=== PATIENT | female | born 1940 | race Caucasian/White ===

== ENCOUNTER 2016-04-11 11:59 | Inpatient (IN) | payer OTHER ==
[~2016-04-11] VITALS: Ht 175.3 cm; Wt 92.2 kg
[~2016-04-11 11:59] MED LIST: ACET-1256 PO; CALCTAB5 PO; CHOL100010 PO; CLB/200 PO; CMD1 PO; CMD3 PO; IRBE1TAB46 PO; TPRSR/25 PO; ULT/50 PO
[2016-04-11 13:02] LABS: HEMATOCRIT 41.4 % (37-47); MEAN CELL VOLUME 92.4 fL (80-100); MEAN CORPUSCULAR HEMOGLOBIN 29.5 pg (25-34); MEAN CORPUSCULAR HGB CONC 31.9 g/dl (32-36); MEAN PLATELET VOLUME 10.9 fL (7.4-10.4); PLATELET COUNT 259 K/uL (130-400); RED BLOOD COUNT 4.48 M/uL (4.2-5.4); WHITE BLOOD COUNT 6.15 K/uL (4.8-10.8)
[2016-04-11 13:11] LABS: BUN/CREATININE RATIO 12.1 (10-20); CALCIUM 9.4 mg/dl (8.5-10.1); POTASSIUM 4.6 mmol/L (3.5-5.1)
[2016-04-11] MEDS ORDERED: METOPROLOL TARTRATE 1 MG/ML VIAL IV STA (13:12)
[2016-04-11 13:16] LABS: ALB/GLOB RATIO 1.1 (0.9-2); CKMB/CK RATIO 1.9 (0-3.0)
--- NOTE | 2016-04-11 13:24 | DIAGNOSTIC IMAGING REPORT ---
CHEST ONE VIEW PORTABLE CLINICAL HISTORY: palpitations HYPERTENSION COMPARISON STUDY: 11/03/2013 FINDINGS: The heart is at the upper limits of normal in size. There is diffuse interstitial thickening, slightly progressive when compared the prior study. There is no lobar consolidation.[ No pleural effusions are visualized. IMPRESSION: 1. Mildly progressive interstitial thickening. No evidence of acute lobar consolidation. Electronically signed by: Valente Gallagher M.D. 04/11/2016 1:22 PM
[2016-04-11] MEDS ORDERED: CMD3 PO (13:27)
[2016-04-11 13:32] LABS: INR 2.2 (0.9-1.1); PARTIAL THROMBOPLASTIN RATIO 1.4; PROTHROMBIN TIME (PATIENT) 24.7 SECONDS (9.0-12.0)
[2016-04-11 14:10] LABS: MANUAL MICROSCOPIC REQUIRED? NO; REVIEW REQ? NO; URINE APPEARANCE CLEAR (CLEAR); URINE BILIRUBIN NEG (NEG); URINE COLOR YELLOW; URINE NITRITE NEG (NEG); URINE PH 8.5 (4.5-7.5); URINE SPECIFIC GRAVITY 1.007 (1.000-1.030); UROBILINOGEN NEG (NEG)
--- NOTE | 2016-04-11 15:29 | EMERGENCY ROOM VISIT NOTE ---
History Report prepared by Suyapa: Carolina Plunkett Under the Supervision of: Dr. Gal Kamara D.O. First contact with patient: 12:55 Chief Complaint: IRREGULAR HEARTBEAT Stated Complaint: VERTIGO AFIB HIGH BLOOD PRESSURE Nursing Triage Summary: Triage note: pt ambulatory to triage. pt reports "i have been in and out of a-fib since last night i think it is ok right now and this morning i was so dizzy i couldn't stand, i still feel dizzy on and off." History of Present Illness The patient is a 75 year old female who presents to the Emergency Room with complaints of intermittent episodes of atrial fibrillation since last evening. Currently, while resting, she is in mild discomfort, but she states that she has intermittently been experiencing a headache and dizziness which worsens with standing since the time of onset as well. She also notes being hypertensive last evening as well. The patient has a known history of paroxysmal atrial fibrillation and she frequently experiences episodes of an irregular heart beat, however, she was concerned as these episodes lasted longer than normal despite the use of her normal medications. Patient denies having chest pain, but she states as if her chest feels congested. She denies feeling short of breath but she states that she has felt more easily fatigued than normal. Patient denies recent fevers, chills, cough, abdominal pain, nausea , vomiting, diarrhea, urinary symptoms or swelling to her extremities. Source of History: patient Onset: last evening Position: chest Symptom Intensity: mild Quality: other (atrial fibrillation) Timing: intermittent Modifying Factors (Relieving): other (No relief with normal meds) Associated Symptoms: + SOB, + fatigue, + headache, No abdominal pain, No chest pain (but feels like her chest is congested), No chills, No cough, No diarrhea, No fevers, No nausea, No urinary symptoms, No vomiting Note: Patient has felt dizzy. Review of Systems See HPI for pertinent positives & negatives. A total of 10 systems reviewed and were otherwise negative. Past Medical & Surgical Medical Problems: (1) A-fib (2) Basal cell carcinoma (3) CKD (chronic kidney disease), stage III (4) DVT (deep venous thrombosis) (5) GERD (gastroesophageal reflux disease) (6) HTN (hypertension) (7) Osteoporosis (8) Paroxysmal a-fib Surgical Problems: (1) H/O dilation and curettage (2) H/O parathyroidectomy (3) History of cholecystectomy (4) S/P tonsillectomy and adenoidectomy Family History No pertinent family history Social History Smoking Status: Never Smoker Alcohol Use: none Marital Status: Housing Status: lives with significant other Occupation Status: retired Current/Historical Medications Scheduled Calcium (Caltrate), 600 MG PO DAILY Celecoxib (CeleBREX), 200 MG PO BID Cholecalciferol (Vitamin D), 1,000 INTER.UNIT PO DAILY Irbesartan (Irbesartan), 75 MG PO DAILY Magnesium Oxide (Magnesium Oxide), 1 CAP PO DAILY Metoprolol Succinate (Metoprolol Succinate ER), 25 MG PO BID Pantoprazole (Protonix), 1 TAB PO DAILY Warfarin Sod (Coumadin), 3 MG PO WK Warfarin Sod (Coumadin), 0.5 TAB PO 6XWK Scheduled PRN Acetaminophen (Tylenol), 500 MG PO TID PRN for Pain Lorazepam (Lorazepam), 1 TAB PO TID PRN for Anxiety Tramadol Hcl (Ultram), 50 MG PO Q4 PRN for Pain Allergies Coded Allergies: Nitrofurantoin (Verified Allergy, Mild, HIVES, 04/11/16) Penicillins (Verified Allergy, Mild, HIVES, 04/11/16) Eggs or Egg-derived Products (Verified Adverse Reaction, Mild, GI SYMPTOMS , 04/11/16) Physical Exam Vital Signs Date Time Temp Pulse Resp B/P Pulse Ox O2 Delivery O2 Flow Rate FiO2 04/11/16 17:11 97 04/11/16 17:04 80 17 151/89 96 Room Air 04/11/16 14:33 94 16 153/102 96 04/11/16 14:09 108 15 165/93 98 Room Air 04/11/16 13:48 107 183/100 04/11/16 13:43 97 Room Air 04/11/16 13:43 97 Room Air 04/11/16 13:33 108 180/95 04/11/16 13:32 96 15 180/95 97 Room Air 04/11/16 12:29 100 04/11/16 12:23 102 13 163/110 97 Room Air 04/11/16 12:17 97 Room Air 04/11/16 12:09 36.8 99 18 178/94 95 Room Air Physical Exam GENERAL: Patient is awake, alert, and in no acute distress. Patient is resting comfortably and showing no signs of anxiety EYES: The conjunctivae are clear. The pupils are round and reactive. EARS, NOSE, MOUTH AND THROAT: The nose is without any evidence of any deformity. Mucous membranes are moist tongue is midline NECK: The neck is nontender and supple. RESPIRATORY: Normal respiratory effort is noted there is no evidence of wheezing rhonchi or rales CARDIOVASCULAR: Irregular rhythm noted to auscultation. No definite murmur appreciated. GASTROINTESTINAL: The abdomen is soft. Bowel sounds are present in all quadrants. Abdomen is nontender MUSCULOSKELETAL/EXTREMITIES: There is no evidence of gross deformity full range of motion is noted in the hips and shoulders SKIN: There is no obvious evidence of any rash. There are no petechiae, pallor or cyanosis noted. NEUROLOGIC: Patient is awake alert and oriented x3. Medical Decision & Procedures ER Provider Diagnostic Interpretation: X-ray results as stated below per interpretation by me and the radiologist. CHEST ONE VIEW PORTABLE CLINICAL HISTORY: palpitations HYPERTENSION COMPARISON STUDY: 11/03/2013 FINDINGS: The heart is at the upper limits of normal in size. There is diffuse interstitial thickening, slightly progressive when compared the prior study. There is no lobar consolidation.[ No pleural effusions are visualized. IMPRESSION: 1. Mildly progressive interstitial thickening. No evidence of acute lobar consolidation. Electronically signed by: Valente Gallagher M.D. 04/11/2016 1:22 PM Laboratory Results Test 04/11/16 12:36 04/11/16 13:45 Immature Granulocyte % (Auto) 0.5 % White Blood Count 6.15 K/uL (4.8-10.8) Red Blood Count 4.48 M/uL (4.2-5.4) Hemoglobin 13.2 g/dL (12.0-16.0) Hematocrit 41.4 % (37-47) Mean Corpuscular Volume 92.4 fL (80-100) Mean Corpuscular Hemoglobin 29.5 pg (25-34) Mean Corpuscular Hemoglobin Concent 31.9 g/dl (32-36) Platelet Count 259 K/uL (130-400) Mean Platelet Volume 10.9 fL (7.4-10.4) Neutrophils (%) (Auto) 64.1 % Lymphocytes (%) (Auto) 19.5 % Monocytes (%) (Auto) 12.9 % Eosinophils (%) (Auto) 2.3 % Basophils (%) (Auto) 0.7 % Neutrophils # (Auto) 3.94 K/uL (1.4-6.5) Lymphocytes # (Auto) 1.20 K/uL (1.2-3.4) Monocytes # (Auto) 0.79 K/uL (0.11-0.59) Eosinophils # (Auto) 0.14 K/uL (0-0.5) Basophils # (Auto) 0.04 K/uL (0-0.2) Immature Granulocyte # (Auto) 0.03 K/uL (0.00-0.02) Nucleated RBC Absolute Count (auto) 0.00 K/uL (0-0) Nucleated Red Blood Cells % 0.0 % Activated Partial Thromboplast Time 36.9 SECONDS (21.0-31.0) Partial Thromboplastin Ratio 1.4 Magnesium Level 2.1 mg/dl (1.8-2.4) Total Bilirubin 0.5 mg/dl (0.2-1) Direct Bilirubin 0.1 mg/dl (0-0.2) Aspartate Amino Transf (AST/SGOT) 20 U/L (15-37) Alanine Aminotransferase (ALT/SGPT) 29 U/L (12-78) Alkaline Phosphatase 106 U/L (45-117) Total Creatine Kinase 111 U/L (26-192) Creatine Kinase MB 2.1 ng/ml (0.5-3.6) Creatine Kinase MB Ratio 1.9 (0-3.0) Troponin I < 0.015 ng/ml (0-0.045) Total Protein 7.5 gm/dl (6.4-8.2) Albumin 4.0 gm/dl (3.4-5.0) Globulin 3.5 gm/dl (2.5-4.0) Albumin/Globulin Ratio 1.1 (0.9-2) Lipase 183 U/L (73-393) Thyroid Stimulating Hormone (TSH) 2.120 uIu/ml (0.300-4.500) Free Thyroxine 1.26 ng/dl (0.80-1.60) Urine Color YELLOW Urine Appearance CLEAR (CLEAR) Urine pH 8.5 (4.5-7.5) Urine Specific [place] 1.007 (1.000-1.030) Urine Protein NEG (NEG) Urine Glucose (UA) NEG (NEG) Urine Ketones NEG (NEG) Urine Occult Blood NEG (NEG) Urine Nitrite NEG (NEG) Urine Bilirubin NEG (NEG) Urine Urobilinogen NEG (NEG) Urine Leukocyte Esterase TRACE (NEG) Urine WBC (Auto) 0 /hpf (0-5) Urine RBC (Auto) 0-4 /hpf (0-4) Urine Hyaline Casts (Auto) 0 /lpf (0-5) Urine Epithelial Cells (Auto) 5-10 /lpf (0-5) Urine Bacteria (Auto) NEG (NEG) Bedside Troponin I 0.000 ng/ml (0-0.045) Laboratory results per my review. Medications Administered Medications (Trade) Dose Ordered Sig/Cristiano Route Start Time Stop Time Status Last Admin Dose Admin Metoprolol Tartrate (Lopressor Iv) 15 mg NOW STAT IV 04/11/16 13:12 04/11/16 13:14 DC 04/11/16 13:33 5 MG Sotalol HCl (Betapace Tab) 80 mg [id number] PO 04/11/16 17:00 05/11/16 16:59 04/11/16 20:40 80 MG Amlodipine Besylate (Norvasc Tab) 5 mg NOW ONCE PO 04/11/16 15:45 04/11/16 15:54 DC 04/11/16 15:58 5 MG Warfarin Sodium (Coumadin Tab) 1.5 mg MoTuWeThFrSa@1600 PO 04/11/16 16:00 05/11/16 15:59 04/11/16 20:40 1.5 MG ECG Indication: palpitations Rate (beats per minute): 95 Rhythm: atrial fibrillation Findings: PVC, other (No ST segment abnormalities.) Change: A-fib is new when compared to 11/04/13. ED Course 1300: The patient was evaluated in room B7. A complete history and physical examination were performed. 1312: Lopressor 15 mg IV was ordered. 1450: Upon reevaluation, the patient appeared to be resting more comfortably, however she was still in atrial fibrillation. The logging equipment operator will be contacted. 1500: Dr. Maldonado of cardiology has been contacted. He will be in to evaluate her. 1420: Dr. Maldonado has evaluated the patient. He advised keeping her in the hospital to cardiovert with Sotalol. The hospitalist will be contacted. 1525: After discussion with Shiela FAN, the patient will continue to be evaluated by the [facility] for further evaluation. The patient verbalized her understanding and agreement with this treatment plan. Medical Decision Differential diagnosis: Etiologies such as premature contractions, electrolyte abnormality, cardiac dysrhythmia, thyroid dysfunction, pulmonary embolism, infection, gastrointestinal, as well as others were entertained. Nursing notes reviewed. The patient is a 75-year-old female who has a history of paroxysmal atrial fibrillation who presented to the emergency department with palpitations. She felt as though she went into atrial fibrillation within the last 24 hours. She is currently taking anticoagulation as well as rate control medication. She was treated with beta blockers in the emergency department. I discussed the patient' s laboratory and radiographic studies with her. I discussed her case with the on -call [facility] logging equipment operator. He independently evaluated the patient in the emergency department and felt that she may be a good candidate for cardioversion versus treating with sotalol. Ultimately he decided that treatment with sotalol would be better for this patient. I discussed his case with the on-call [facility] hospitalist group. They've agreed to evaluate the patient in emergency apartment for further management and disposition. Consults Time Called: 1450 Consulting Physician: Dr. Maldonado - cardiology Returned Call: 1500 and 1520 Discussed the patient's case. He will be in to evaluate her. 1520: Dr. Maldonado has evaluated the patient. He advised keeping her in the hospital for Sotalol cardioversion. The hospitalist will be contacted. Additional Consults: Time Called: 1525 Consulted Physician: Shiela FAN - [facility] Returned Call: 1526 Additional Comments: Discussed the patient's case. He will continue to be evaluated by the [facility] Hospitalist for further management. Impression Primary Impression: Atrial fibrillation Additional Impressions: Palpitations, Fatigue Scribe Attestation The scribe's documentation has been prepared under my direction and personally reviewed by me in its entirety. I confirm that the note above accurately reflects all work, treatment, procedures, and medical decision making performed by me. Departure Information Dispostion Being Evaluated By Hospitalist ([facility]) Referrals No Doctor, Assigned (PCP)
[2016-04-11 15:44] LABS: BASO % 0.7 %; BASO ABS # 0.04 K/uL (0-0.2); COMPLETE YES; EOS % 2.3 %; IG% 0.5 %; LYMPH % 19.5 %; MONO % 12.9 %; NEUT % 64.1 %
[2016-04-11] MEDS ORDERED: AMLODIPINE BESYLATE 5 MG TAB PO ONE (15:45)
[2016-04-11 15:47] LABS: MAGNESIUM 2.1 mg/dl (1.8-2.4)
[2016-04-11] MEDS ORDERED: WARFARIN SOD 0.5 MG TAB PO SCH (16:00)
--- NOTE | 2016-04-11 16:04 | CARDIOLOGY CONSULTATION ---
DATE OF CONSULTATION: 04/11/2016 CONSULTATION REQUESTED BY: Dr. Kamara. REASON FOR CONSULTATION: Symptomatic atrial fibrillation. HISTORY OF PRESENT ILLNESS: Mrs. Evangelista is a very pleasant 75-year-old woman who normally follows in our cardiology practice for history of paroxysmal atrial fibrillation. She presented to [facility] Emergency Department on 04/11/2016 with a complaint of feeling as though she is in atrial fibrillation for the last several days. She states several days prior to presentation she started feeling her heart fluttering in her chest and she get a little dyspneic with exertion. The symptoms would wax and wane. She felt that she was going in and out of atrial fibrillation. She was hoping it would go away on its own; however, the symptoms persisted and upon awakening on the morning of 04/11/2016, she became severely lightheaded and dizzy as well as nauseous upon awakening. She went and took her morning meds and tried to rest to get her symptoms under control, they persisted and she came into the Emergency Department. Upon arrival, she was found to be in atrial fibrillation with rates in the low 100s and also she was rather hypertensive with initial blood pressure of 178/94. Currently, she is without complaint at rest and states that she feels better as long as she does not move. PAST SURGICAL HISTORY: 1. Colonoscopy. 2. D\T\C. 3. Parathyroidectomy. 4. Cholecystectomy. 5. Tonsil and adenoidectomy. 6. Breast biopsy. PAST MEDICAL HISTORY: 1. Paroxysmal atrial flutter on chronic Coumadin therapy. 2. Factor V Leiden deficiency on chronic Coumadin therapy. 3. History of DVT. 4. Hypertension. 5. Osteoporosis. 6. Stage III chronic kidney disease. FAMILY HISTORY: Noncontributory. SOCIAL HISTORY: Denies any alcohol, tobacco or recreational drug use. REVIEW OF SYSTEMS: As per HPI, all other review of systems reviewed and negative at this time. ALLERGIES: 1. EGGS. 2. NITROFURANTOIN. 3. PENICILLIN. MEDICATIONS AN OUTPATIENT: 1. Coumadin 3 mg daily as directed by the Coumadin clinic. 2. Toprol-XL 25 mg b.i.d. 3. Irbesartan 75 mg daily. 4. Magnesium oxide 400 mg daily. 5. Protonix daily. PHYSICAL EXAMINATION: VITALS: Temperature afebrile, pulse 94, respiratory rate 12, blood pressure 153/102. GENERAL: Awake, alert, oriented x3, in no acute distress. HEENT: Normocephalic, atraumatic. Pupils are equal, round, and reactive to light and accommodation. Extraocular muscles intact. Anicteric sclerae. Moist mucous membranes. NECK: No JVD, no bruit. CARDIOVASCULAR: Irregularly irregular and fast. Unable to appreciate murmurs, rubs or gallops. PULMONARY: Clear to auscultation bilaterally. No rales, rhonchi, or wheezing. ABDOMEN: Bowel sounds x4, soft. No rebound, guarding, tenderness. No organomegaly. EXTREMITIES: No clubbing, cyanosis or edema. +2 pedal pulses bilaterally. SKIN: Warm and dry. TEST RESULTS: INR today of 2.2. Review of her INRs through epoch show that she has been therapeutic for the last several months. A 12-lead EKG performed in the Emergency Department independently reviewed at this time shows atrial fibrillation at 95 beats per minute with occasional PVCs. Sodium 143, potassium 4.6, BUN 12, creatinine 1. IMPRESSION: 1. Symptomatic atrial fibrillation with rapid ventricular response. 2. Hypertension, uncontrolled. 3. History of paroxysmal atrial fibrillation on chronic Coumadin therapy. 4. Factor V Leiden deficiency. RECOMMENDATIONS: It was my pleasure to see Mrs. Evangelista in consultation today. Treatment options for atrial fibrillation were discussed with the patient and after a lengthy discussion of all options available, it was agreed that the patient will be admitted to [facility] at this time for sotalol load and possible cardioversion. She will be started on 80 mg of sotalol b.i.d. and her metoprolol will be held. She will be maintained on her chronic Coumadin therapy. Daily EKGs will be performed to monitor her QT interval, which is normal upon presentation and should the patient remain in atrial fibrillation, we will proceed with DC cardioversion on 04/13/2016. The patient states that she understands, she agrees with above plan and would like to proceed as we have discussed. Otherwise, her blood pressure is rather elevated at this time, so I will give her a single dose of amlodipine 5 mg x1 now and further antihypertensives will be titrated during her admission. Thank you very much for allowing me to participate in the care of your patient.
[2016-04-11] MEDS ORDERED: ACETAMINOPHEN 325 MG TAB PO PRN (16:45)
[2016-04-11] MEDS ORDERED: ONDANSETRON INJ 2 MG/ML 2 ML VIAL IV PRN (16:45)
[2016-04-11] MEDS ORDERED: MAGN400C2 PO (17:16)
[2016-04-11] MEDS ORDERED: LORA0.5T12 PO (17:16)
[2016-04-11] MEDS ORDERED: PANT1TAB48 PO (17:16)
[2016-04-11] MEDS ORDERED: LORAZEPAM 0.5 MG TAB PO PRN (17:30)
--- NOTE | 2016-04-11 19:22 | History and Physical ---
History & Physical Date & Time of Service: Apr 11, 2016 at 19:06 Chief Complaint: Palpitations, Dizziness, Headache Primary Care Physician: Natasha Chavez M.D. History of Present Illness 75 year old female who presents to the ER with palpitations, dizziness, and headache. Patient reports her symptoms began yesterday. She reports history of paroxysmal atrial fibrillation and says that the symptoms she has been experiencing are similar to when she has been in a. fib in the past. She reports feeling vert fatigued as well. Today when she went to get out of bed she felt very dizzy and lightheaded. She denies any syncope. She also had a headache today and took her blood pressure and reports it was too high to read on the monitor. She denies any blurred vision or unilateral weakness. She denies chest pain or pressure. No shortness of breath. She denies abdominal pain , nausea, vomiting, or diarrhea. No fever or chills. She reports urinary frequency but denies dysuria. In the ER, patient is found to be in atrial fibrillation with rate in the low 100s. She was given metoprolol 15mg IV x 1. She was evaluated by Dr. Maldonado in the ER who recommended admission for Sotalol therapy initiation. BP was also noted to be high 183/100. Dr. Scruggs ordered amlodipine 5mg x 1. Past Medical/Surgical History Medical Problems: (1) Basal cell carcinoma Status: Chronic (2) CKD (chronic kidney disease), stage III Status: Chronic (3) DVT (deep venous thrombosis) Status: Chronic (4) GERD (gastroesophageal reflux disease) Status: Chronic (5) HTN (hypertension) Status: Chronic (6) Osteoporosis Status: Chronic (7) Paroxysmal a-fib Status: Chronic Surgical Problems: (1) H/O dilation and curettage Status: Chronic (2) H/O parathyroidectomy Status: Chronic (3) History of cholecystectomy Status: Chronic (4) S/P tonsillectomy and adenoidectomy Status: Chronic Family History FH: colon cancer SISTER Social History Smoking Status: Never Smoker Alcohol Use: none Immunizations History of Tetanus Vaccine?: Yes Tetanus Immunization Date: August 27, 2013 History of Pneumococcal: Yes Pneumococcal Date: May 10, 2015 Multi-Drug Resistant Organisms History of MDRO: No Allergies Coded Allergies: Nitrofurantoin (Verified Allergy, Mild, HIVES, 04/11/16) Penicillins (Verified Allergy, Mild, HIVES, 04/11/16) Eggs or Egg-derived Products (Verified Adverse Reaction, Mild, GI SYMPTOMS , 04/11/16) Home Medications Scheduled Calcium (Caltrate), 600 MG PO DAILY Celecoxib (CeleBREX), 200 MG PO BID Cholecalciferol (Vitamin D), 1,000 INTER.UNIT PO DAILY Irbesartan (Irbesartan), 75 MG PO DAILY Magnesium Oxide (Magnesium Oxide), 1 CAP PO DAILY Metoprolol Succinate (Metoprolol Succinate ER), 25 MG PO BID Pantoprazole (Protonix), 1 TAB PO DAILY Warfarin Sod (Coumadin), 3 MG PO WK Warfarin Sod (Coumadin), 0.5 TAB PO 6XWK Scheduled PRN Acetaminophen (Tylenol), 500 MG PO TID PRN for Pain Lorazepam (Lorazepam), 1 TAB PO TID PRN for Anxiety Tramadol Hcl (Ultram), 50 MG PO Q4 PRN for Pain Review of Systems 10 point review of systems was completed with the pertinent positives and negatives noted per the HPI Physical Exam Vital Signs Date Time Temp Pulse Resp B/P Pulse Ox O2 Delivery O2 Flow Rate FiO2 04/11/16 17:11 97 04/11/16 17:04 80 17 151/89 96 Room Air 04/11/16 14:33 94 16 153/102 96 04/11/16 14:09 108 15 165/93 98 Room Air 04/11/16 13:48 107 183/100 04/11/16 13:43 97 Room Air 04/11/16 13:43 97 Room Air 04/11/16 13:33 108 180/95 04/11/16 13:32 96 15 180/95 97 Room Air 04/11/16 12:29 100 04/11/16 12:23 102 13 163/110 97 Room Air 04/11/16 12:17 97 Room Air 04/11/16 12:09 36.8 99 18 178/94 95 Room Air General Appearance: no apparent distress Head: normocephalic Eyes: normal inspection ENT: hearing grossly normal Neck: supple, no JVD Respiratory/Chest: lungs clear, normal breath sounds, no respiratory distress Cardiovascular: no edema, + irregularly irregular Abdomen/GI: normal bowel sounds, non tender, soft Extremities/Musculoskelatal: normal inspection, no calf tenderness Neurologic/Psych: no motor/sensory deficits, alert, normal mood/affect, oriented x 3 Skin: normal color, warm/dry Diagnostics Laboratory Results Results Past 24 Hours Test 04/11/16 12:36 04/11/16 13:45 Range/Units White Blood Count 6.15 4.8-10.8 K/uL Red Blood Count 4.48 4.2-5.4 M/uL Hemoglobin 13.2 12.0-16.0 g/dL Hematocrit 41.4 37-47 % Mean Corpuscular Volume 92.4 80-100 fL Mean Corpuscular Hemoglobin 29.5 25-34 pg Mean Corpuscular Hemoglobin Concent 31.9 32-36 g/dl Platelet Count 259 130-400 K/uL Mean Platelet Volume 10.9 7.4-10.4 fL Neutrophils (%) (Auto) 64.1 % Lymphocytes (%) (Auto) 19.5 % Monocytes (%) (Auto) 12.9 % Eosinophils (%) (Auto) 2.3 % Basophils (%) (Auto) 0.7 % Neutrophils # (Auto) 3.94 1.4-6.5 K/uL Lymphocytes # (Auto) 1.20 1.2-3.4 K/uL Monocytes # (Auto) 0.79 0.11-0.59 K/uL Eosinophils # (Auto) 0.14 0-0.5 K/uL Basophils # (Auto) 0.04 0-0.2 K/uL RDW Standard Deviation 43.8 36.4-46.3 fL RDW Coefficient of Variation 13.1 11.5-14.5 % Immature Granulocyte % (Auto) 0.5 % Immature Granulocyte # (Auto) 0.03 0.00-0.02 K/uL Nucleated RBC Absolute Count (auto) 0.00 0-0 K/uL Nucleated Red Blood Cells % 0.0 % Prothrombin Time 24.7 9.0-12.0 SECONDS Prothromb Time International Ratio 2.2 0.9-1.1 Activated Partial Thromboplast Time 36.9 21.0-31.0 SECONDS Partial Thromboplastin Ratio 1.4 Sodium Level 143 136-145 mmol/L Potassium Level 4.6 3.5-5.1 mmol/L Chloride Level 107 98-107 mmol/L Carbon Dioxide Level 28 21-32 mmol/L Anion Gap 8.0 3-11 mmol/L Blood Urea Nitrogen 12 7-18 mg/dl Creatinine 1.00 0.60-1.20 mg/dl Est Creatinine Clear Calc Drug Dose 57.5 ml/min Estimated GFR () 62.9 Estimated GFR (Non- 54.3 BUN/Creatinine Ratio 12.1 10-20 Random Glucose 101 70-99 mg/dl Calcium Level 9.4 8.5-10.1 mg/dl Magnesium Level 2.1 1.8-2.4 mg/dl Total Bilirubin 0.5 0.2-1 mg/dl Direct Bilirubin 0.1 0-0.2 mg/dl Aspartate Amino Transf (AST/SGOT) 20 15-37 U/L Alanine Aminotransferase (ALT/SGPT) 29 12-78 U/L Alkaline Phosphatase 106 45-117 U/L Total Creatine Kinase 111 26-192 U/L Creatine Kinase MB 2.1 0.5-3.6 ng/ml Creatine Kinase MB Ratio 1.9 0-3.0 Troponin I < 0.015 0-0.045 ng/ml Total Protein 7.5 6.4-8.2 gm/dl Albumin 4.0 3.4-5.0 gm/dl Globulin 3.5 2.5-4.0 gm/dl Albumin/Globulin Ratio 1.1 0.9-2 Lipase 183 73-393 U/L Thyroid Stimulating Hormone (TSH) 2.120 0.300-4.500 uIu/ml Free Thyroxine 1.26 0.80-1.60 ng/dl Urine Color YELLOW Urine Appearance CLEAR CLEAR Urine pH 8.5 4.5-7.5 Urine Specific Lena 1.007 1.000-1.030 Urine Protein NEG NEG Urine Glucose (UA) NEG NEG Urine Ketones NEG NEG Urine Occult Blood NEG NEG Urine Nitrite NEG NEG Urine Bilirubin NEG NEG Urine Urobilinogen NEG NEG Urine Leukocyte Esterase TRACE NEG Urine WBC (Auto) 0 0-5 /hpf Urine RBC (Auto) 0-4 0-4 /hpf Urine Hyaline Casts (Auto) 0 0-5 /lpf Urine Epithelial Cells (Auto) 5-10 0-5 /lpf Urine Bacteria (Auto) NEG NEG Bedside Troponin I 0.000 0-0.045 ng/ml Diagnostic Radiology CXR IMPRESSION: 1. Mildly progressive interstitial thickening. No evidence of acute lobar consolidation. Impression Assessment and Plan SYMPTOMATIC ATRIAL FIBRILLATION - admit to tele - patient evaluated by Dr. Maldonado who recommends admission for Sotalol initiation - previously on metoprolol for rate control - will hold for now - anticoagulated on Coumadin with therapeutic INR HYPERTENSIVE URGENCY - BP on arrival 183/100 - holding metoprolol as above - amlodipine 5mg x 1 ordered by cardio - continue irbesartan - continue to monitor BP, adjust meds as needed CKD STAGE III - baseline creat 1.1, 1.0 today - continue to monitor, avoid nephrotoxic agents when able HX DVT - on Coumadin, INR therapeutic DVT PROPHYLAXIS - on Coumadin, INR therapeutic DISPO - In my clinical judgment this beneficiary meets acute admission criteria, established by [facility], that includes being hospitalized through two midnights. Agree with above H and P. Briefly 75F with hx of PAF presents with with symtoms of not feeling well, fatigue , dizzy, fluttering . Was in rapid afib and cardiology recommended sotalol initiation. Says some pressure in the chest when heart beating fast. No nausea or abdominal pain. p/e Ge not in distress Cvs s1 and 2 heard irregular no murmurs Rs cta b/l no added sounds Abd benign authorization rep non focal Ext no edema a/p Rapid afib received iv Lopressor in in er cardiology started on sotalol to monitor for any ekg changes. on Coumadin and inr therapeutic HTN urgency received iv Lopressor Lopressor Po on hold as started on sotalol on irbesartan amlodipine one dose give by cardiology will monitor VTE Prophylaxis VTE Risk Assessment Done? Y/N: Yes Risk Level: Moderate
[2016-04-11] MEDS: SOTALOL HCL 80 MG TAB PO SCH (20:40)
[2016-04-11] MEDS: CeleBREX 200 MG CAP PO SCH (20:40)
[2016-04-11 21:25] VITALS: O2SAT 98; Ht 175.3 cm; Wt 92.2 kg
[2016-04-12 00:05] VITALS: BP 121/74; PULSE 81; TEMP 36.8; O2SAT 92
[2016-04-12 04:03] VITALS: BP 127/72; PULSE 100; TEMP 36.4; O2SAT 95
[2016-04-12 06:01] LABS: HEMATOCRIT 41.7 % (37-47); MEAN CELL VOLUME 91.9 fL (80-100); MEAN CORPUSCULAR HEMOGLOBIN 29.5 pg (25-34); MEAN CORPUSCULAR HGB CONC 32.1 g/dl (32-36); MEAN PLATELET VOLUME 10.7 fL (7.4-10.4); PLATELET COUNT 232 K/uL (130-400); RED BLOOD COUNT 4.54 M/uL (4.2-5.4); WHITE BLOOD COUNT 6.04 K/uL (4.8-10.8)
[2016-04-12 06:12] LABS: PROTHROMBIN TIME (PATIENT) 22.1 SECONDS (9.0-12.0)
[2016-04-12 06:28] LABS: BUN/CREATININE RATIO 11.6 (10-20); CALCIUM 9.5 mg/dl (8.5-10.1); CREATININE 1.1 mg/dl (0.60-1.20); POTASSIUM 4.5 mmol/L (3.5-5.1)
[2016-04-12 07:58] VITALS: BP 137/93; PULSE 110; TEMP 36.3; O2SAT 97
[2016-04-12] MEDS: SOTALOL HCL 80 MG TAB PO SCH ×2 (09:43→17:20)
[2016-04-12] MEDS: MAGNESIUM OXIDE 400 MG TAB PO SCH (09:44)
[2016-04-12] MEDS: CHOLECALCIFEROL 1000 INTER.UNIT TAB PO SCH (09:44)
[2016-04-12] MEDS: PANTOprazole SOD 40 MG TAB PO SCH (09:44)
[2016-04-12] MEDS: CALCIUM CARBONATE 1250MG TAB PO SCH (09:44)
[2016-04-12] MEDS: CeleBREX 200 MG CAP PO SCH ×2 (09:45→20:44)
[2016-04-12] MEDS: IRBESARTAN 75 MG TAB PO SCH (09:45)
--- NOTE | 2016-04-12 10:42 | Cardiology Follow-Up ---
Subjective Subjective Date of Service: Apr 12, 2016. Pt evaluation today including: conversation w/ patient, physical exam, chart review, lab review, review of studies, review of inpatient medication list Additional Details: Pt seen and examined, states that she's feeling well at rest. Some sob early this AM, ?panic attack. Denies cp, palpitations, lightheadedness or dizziness. Tele reviewed: atrial fibrillation, rate's 90's-100's EKG afib with QTc 437 ms. Review of Systems Respiratory: No cough, No dyspnea at rest, No dyspnea on exertion, No hemoptysis, No problem reported, No see HPI, No shortness of breath, No sputum, No wheezing Cardiac: No PND, No chest pain, No claudication, No edema, No orthopnea, No palpitations, No problem reported, No see HPI Objective Vital Signs Last Vital Signs Documentation Date Time Temp Pulse Resp B/P Pulse Ox O2 Delivery O2 Flow Rate FiO2 04/12/16 07:58 36.3 110 18 137/93 97 Room Air Physical Exam: General Appearance: WD/WN, no apparent distress Eyes: bilateral eyes EOMI, bilateral eyes PERRL, bilateral eyes normal inspection ENT: normal ENT inspection, hearing grossly normal, pharynx normal Neck: supple, no adenopathy, thyroid normal, no JVD, no carotid bruits, trachea midline Respiratory/Chest: chest non-tender, lungs clear, normal breath sounds, no respiratory distress, no accessory muscle use Cardiovascular: no edema, no JVD, no murmur, + irregularly irregular Abdomen: normal bowel sounds, non tender, soft, no organomegaly, no pulsatile mass Extremities: normal inspection, no pedal edema, no calf tenderness Neurologic/Psychiatric: contract administration manager II-XII nml as tested, no motor/sensory deficits, alert, normal mood/affect, oriented x 3 Skin: normal color, warm/dry, no rash Lymphatic: no adenopathy Assessment and Plan 1. atrial fibrillation rvr symptomatic sotalol loading, Qtc stable at 437 ms for dc cardioversion in AM npo after midnight INR remains therapeutic will require telemetry monitoring until the AM of 04/15 cont daily ekg's
[2016-04-12 11:04] VITALS: BP 95/60; PULSE 108; TEMP 36.8; O2SAT 96
--- NOTE | 2016-04-12 11:46 | Progress Note ---
Internal Med Progress Note Date of Service: Apr 12, 2016. Provider Documentation: SUBJECTIVE: sitting on the chair comfortably could not sleep well last night. Says she doesn't sleep well at home also. afebrile no chest pain or sob has some cough OBJECTIVE: Vital Signs-as noted below Exam: General-alert and oriented x 3 ENT-normal hearing Neck-no neck masses Lungs-cta b/l no wheezing or crackles Heart-s1 and s2 heard irregular, no murmurs Abdomen-soft bowel sounds present non tender no distension Extremities-no edema no erythema Neuro-alert and awake moves extremities Lab data as noted below. ASSESSMENT & PLAN: SYMPTOMATIC ATRIAL FIBRILLATION Cardiology Dr. Maldonado recommends Sotalol initiation and monitor in tele home Lopressor held on Coumadin and INR 2.0 HYPERTENSIVE URGENCY BP on arrival 183/100 holding metoprolol as above received amlodipine 5mg x 1 ordered by cardio on irbesartan on sotalol stable currently. CKD STAGE III baseline creat 1.1, cr 1.1 today. HX DVT on Coumadin, INR therapeutic DVT PROPHYLAXIS on Coumadin, INR therapeutic DISPOSITION monitor in tele Vital Signs: Date Time Temp Pulse Resp B/P Pulse Ox O2 Delivery O2 Flow Rate FiO2 04/12/16 07:58 36.3 110 18 137/93 97 Room Air 04/12/16 04:03 36.4 100 15 127/72 95 Room Air 04/12/16 04:00 Room Air 04/12/16 00:05 36.8 81 16 121/74 92 Room Air 04/12/16 00:00 Room Air 04/11/16 21:25 98 Room Air 04/11/16 19:20 94 17 98 04/11/16 17:11 97 04/11/16 17:04 80 17 151/89 96 Room Air 04/11/16 14:33 94 16 153/102 96 04/11/16 14:09 108 15 165/93 98 Room Air 04/11/16 13:48 107 183/100 04/11/16 13:43 97 Room Air 04/11/16 13:43 97 Room Air 04/11/16 13:33 108 180/95 04/11/16 13:32 96 15 180/95 97 Room Air 04/11/16 12:29 100 04/11/16 12:23 102 13 163/110 97 Room Air 04/11/16 12:17 97 Room Air 04/11/16 12:09 36.8 99 18 178/94 95 Room Air Lab Results: Results Past 24 Hours Test 04/11/16 12:36 04/11/16 13:45 04/12/16 05:45 Range/Units White Blood Count 6.15 6.04 4.8-10.8 K/uL Red Blood Count 4.48 4.54 4.2-5.4 M/uL Hemoglobin 13.2 13.4 12.0-16.0 g/dL Hematocrit 41.4 41.7 37-47 % Mean Corpuscular Volume 92.4 91.9 80-100 fL Mean Corpuscular Hemoglobin 29.5 29.5 25-34 pg Mean Corpuscular Hemoglobin Concent 31.9 32.1 32-36 g/dl Platelet Count 259 232 130-400 K/uL Mean Platelet Volume 10.9 10.7 7.4-10.4 fL Neutrophils (%) (Auto) 64.1 % Lymphocytes (%) (Auto) 19.5 % Monocytes (%) (Auto) 12.9 % Eosinophils (%) (Auto) 2.3 % Basophils (%) (Auto) 0.7 % Neutrophils # (Auto) 3.94 1.4-6.5 K/uL Lymphocytes # (Auto) 1.20 1.2-3.4 K/uL Monocytes # (Auto) 0.79 0.11-0.59 K/uL Eosinophils # (Auto) 0.14 0-0.5 K/uL Basophils # (Auto) 0.04 0-0.2 K/uL RDW Standard Deviation 43.8 43.0 36.4-46.3 fL RDW Coefficient of Variation 13.1 12.9 11.5-14.5 % Immature Granulocyte % (Auto) 0.5 % Immature Granulocyte # (Auto) 0.03 0.00-0.02 K/uL Nucleated RBC Absolute Count (auto) 0.00 0-0 K/uL Nucleated Red Blood Cells % 0.0 % Prothrombin Time 24.7 22.1 9.0-12.0 SECONDS Prothromb Time International Ratio 2.2 2.0 0.9-1.1 Activated Partial Thromboplast Time 36.9 21.0-31.0 SECONDS Partial Thromboplastin Ratio 1.4 Sodium Level 143 145 136-145 mmol/L Potassium Level 4.6 4.5 3.5-5.1 mmol/L Chloride Level 107 106 98-107 mmol/L Carbon Dioxide Level 28 30 21-32 mmol/L Anion Gap 8.0 9.0 3-11 mmol/L Blood Urea Nitrogen 12 13 7-18 mg/dl Creatinine 1.00 1.10 0.60-1.20 mg/dl Est Creatinine Clear Calc Drug Dose 57.5 51.9 ml/min Estimated GFR () 62.9 56.1 Estimated GFR (Non- 54.3 48.4 BUN/Creatinine Ratio 12.1 11.6 10-20 Random Glucose 101 86 70-99 mg/dl Calcium Level 9.4 9.5 8.5-10.1 mg/dl Magnesium Level 2.1 1.8-2.4 mg/dl Total Bilirubin 0.5 0.2-1 mg/dl Direct Bilirubin 0.1 0-0.2 mg/dl Aspartate Amino Transf (AST/SGOT) 20 15-37 U/L Alanine Aminotransferase (ALT/SGPT) 29 12-78 U/L Alkaline Phosphatase 106 45-117 U/L Total Creatine Kinase 111 26-192 U/L Creatine Kinase MB 2.1 0.5-3.6 ng/ml Creatine Kinase MB Ratio 1.9 0-3.0 Troponin I < 0.015 0-0.045 ng/ml Total Protein 7.5 6.4-8.2 gm/dl Albumin 4.0 3.4-5.0 gm/dl Globulin 3.5 2.5-4.0 gm/dl Albumin/Globulin Ratio 1.1 0.9-2 Lipase 183 73-393 U/L Thyroid Stimulating Hormone (TSH) 2.120 0.300-4.500 uIu/ml Free Thyroxine 1.26 0.80-1.60 ng/dl Urine Color YELLOW Urine Appearance CLEAR CLEAR Urine pH 8.5 4.5-7.5 Urine Specific [place] 1.007 1.000-1.030 Urine Protein NEG NEG Urine Glucose (UA) NEG NEG Urine Ketones NEG NEG Urine Occult Blood NEG NEG Urine Nitrite NEG NEG Urine Bilirubin NEG NEG Urine Urobilinogen NEG NEG Urine Leukocyte Esterase TRACE NEG Urine WBC (Auto) 0 0-5 /hpf Urine RBC (Auto) 0-4 0-4 /hpf Urine Hyaline Casts (Auto) 0 0-5 /lpf Urine Epithelial Cells (Auto) 5-10 0-5 /lpf Urine Bacteria (Auto) NEG NEG Bedside Troponin I 0.000 0-0.045 ng/ml
[2016-04-12 15:12] VITALS: BP 108/71; PULSE 62; TEMP 36.5; O2SAT 96
[2016-04-12] MEDS: WARFARIN SOD 5 MG TAB PO SCH (17:21)
[2016-04-12 20:01] VITALS: BP 98/60; PULSE 63; TEMP 36.6; O2SAT 93
[2016-04-13 00:10] VITALS: BP 114/65; PULSE 56; TEMP 36.4; O2SAT 96
[2016-04-13 03:18] VITALS: BP 108/58; PULSE 54; TEMP 36.5; O2SAT 96
[2016-04-13 07:37] LABS: INR 2.2 (0.9-1.1); PROTHROMBIN TIME (PATIENT) 24.4 SECONDS (9.0-12.0)
[2016-04-13 08:08] VITALS: BP 110/60; PULSE 55; TEMP 36.7; O2SAT 94
[2016-04-13] MEDS: SOTALOL HCL 80 MG TAB PO SCH ×2 (08:49→17:49)
[2016-04-13] MEDS: CHOLECALCIFEROL 1000 INTER.UNIT TAB PO SCH (08:49)
[2016-04-13] MEDS: MAGNESIUM OXIDE 400 MG TAB PO SCH (08:49)
[2016-04-13] MEDS: PANTOprazole SOD 40 MG TAB PO SCH (08:49)
[2016-04-13] MEDS: CALCIUM CARBONATE 1250MG TAB PO SCH (08:49)
[2016-04-13] MEDS: CeleBREX 200 MG CAP PO SCH ×2 (08:50→20:57)
[2016-04-13] MEDS: TRAMADOL HCL 50 MG TAB PO PRN ×2 (10:00→20:58)
[2016-04-13] MEDS: IRBESARTAN 75 MG TAB PO SCH (10:00)
--- NOTE | 2016-04-13 10:33 | Cardiology Follow-Up ---
Subjective Subjective Date of Service: Apr 13, 2016. Pt evaluation today including: conversation w/ patient, physical exam, chart review, lab review, review of studies, review of inpatient medication list Additional Details: Pt seen and examined, states that she's feeling well. Ambulating last PM with some palpitations and chest discomfort, improved today. Denies sob, lightheadedness or dizziness. tele reviewed: spontaneously cardioverted to sinus rhythm at 1517 on 04/12/16 EKG: sinus rhythm QTc of 430ms Review of Systems Respiratory: No cough, No dyspnea at rest, No dyspnea on exertion, No hemoptysis, No problem reported, No see HPI, No shortness of breath, No sputum, No wheezing Cardiac: No PND, No chest pain, No claudication, No edema, No orthopnea, No palpitations, No problem reported, No see HPI Objective Vital Signs Last Vital Signs Documentation Date Time Temp Pulse Resp B/P Pulse Ox O2 Delivery O2 Flow Rate FiO2 04/13/16 08:08 36.7 55 18 110/60 94 Room Air Physical Exam: General Appearance: WD/WN, no apparent distress Eyes: bilateral eyes EOMI, bilateral eyes PERRL, bilateral eyes normal inspection ENT: normal ENT inspection, hearing grossly normal, pharynx normal Neck: supple, no adenopathy, thyroid normal, no JVD, no carotid bruits, trachea midline Respiratory/Chest: chest non-tender, lungs clear, normal breath sounds, no respiratory distress, no accessory muscle use Cardiovascular: regular rate, rhythm, no edema, no JVD, no murmur, + gallop/S4 Abdomen: normal bowel sounds, non tender, soft, no organomegaly, no pulsatile mass Extremities: normal inspection, no pedal edema, no calf tenderness Neurologic/Psychiatric: uniform maker II-XII nml as tested, no motor/sensory deficits, alert, normal mood/affect, oriented x 3 Skin: normal color, warm/dry, no rash Lymphatic: no adenopathy Assessment and Plan 1. atrial fibrillation spontaneously converted symptoms improving tolerating sotalol, no significant ventricular ectopy QTc stable cont sotalol 80 mg bid cont coumadin will give pm dose today, am dose tomorrow and d/c to home 2. chest discomfort improving no sign of active ischemia likely secondary to RVR if symptoms continue can complete ischemic work up as outpatient Nuclear stress would be preferred modality cont to monitor on tele
--- NOTE | 2016-04-13 11:25 | Progress Note ---
Internal Med Progress Note Date of Service: Apr 13, 2016. Provider Documentation: SUBJECTIVE: sitting on the chair comfortably says feels some pressure in the chest while walking no nausea no sob no dizziness OBJECTIVE: Vital Signs-as noted below Exam: General-alert and oriented x 3 ENT-normal hearing Neck-no neck masses Lungs-cta b/l no wheezing or crackles Heart-s1 and s2 heard irregular, no murmurs Abdomen-soft bowel sounds present non tender no distension Extremities-no edema no erythema Neuro-alert and awake moves extremities Lab data as noted below. ASSESSMENT & PLAN: SYMPTOMATIC ATRIAL FIBRILLATION Cardiology Dr. Maldonado recommends Sotalol initiation and monitor in tele home Lopressor held on Coumadin and INR 2.2 stable HYPERTENSIVE URGENCY BP on arrival 183/100 holding metoprolol as above received amlodipine 5mg x 1 ordered by cardio on irbesartan on sotalol stable currently. CKD STAGE III baseline creat 1.1, cr 1.1 today. HX DVT on Coumadin, INR therapeutic DVT PROPHYLAXIS on Coumadin, INR therapeutic DISPOSITION monitor in tele possible d/c in am Vital Signs: Date Time Temp Pulse Resp B/P Pulse Ox O2 Delivery O2 Flow Rate FiO2 04/13/16 08:08 36.7 55 18 110/60 94 Room Air 04/13/16 04:00 Room Air 04/13/16 03:18 36.5 54 16 108/58 96 Room Air 04/13/16 00:10 36.4 56 15 114/65 96 Room Air 04/13/16 00:00 Room Air 04/12/16 20:01 36.6 63 18 98/60 93 Room Air 04/12/16 20:00 Room Air 04/12/16 16:00 Room Air 04/12/16 15:12 36.5 62 20 108/71 96 Room Air 04/12/16 12:00 Room Air Lab Results: Results Past 24 Hours Test 04/13/16 06:35 Range/Units Prothrombin Time 24.4 9.0-12.0 SECONDS Prothromb Time International Ratio 2.2 0.9-1.1
[2016-04-13 12:06] VITALS: BP 102/60; PULSE 54; TEMP 36.8; O2SAT 95
[2016-04-13 15:36] VITALS: BP 101/66; PULSE 50; TEMP 36.6; O2SAT 95
[2016-04-13] MEDS: WARFARIN SOD 5 MG TAB PO SCH (17:48)
[2016-04-13 19:53] VITALS: BP 97/62; PULSE 59; TEMP 36.6; O2SAT 96
[2016-04-14] VITALS: BP 100/55; PULSE 55; TEMP 36.5; O2SAT 92
[2016-04-14 04:00] VITALS: BP 107/56; PULSE 54; TEMP 36.6; O2SAT 93
[2016-04-14 07:19] LABS: INR 3.5 (0.9-1.1); PROTHROMBIN TIME (PATIENT) 39.6 SECONDS (9.0-12.0)
[2016-04-14 08:09] VITALS: BP 109/61; PULSE 52; TEMP 36.6; O2SAT 95
[2016-04-14] MEDS: CeleBREX 200 MG CAP PO SCH (08:25)
[2016-04-14] MEDS: CALCIUM CARBONATE 1250MG TAB PO SCH (08:25)
[2016-04-14] MEDS: SOTALOL HCL 80 MG TAB PO SCH (08:25)
[2016-04-14] MEDS: CHOLECALCIFEROL 1000 INTER.UNIT TAB PO SCH (08:26)
[2016-04-14] MEDS: PANTOprazole SOD 40 MG TAB PO SCH (08:26)
[2016-04-14] MEDS: MAGNESIUM OXIDE 400 MG TAB PO SCH (08:26)
[2016-04-14] MEDS: IRBESARTAN 75 MG TAB PO SCH (08:27)
--- NOTE | 2016-04-14 11:28 | Cardiology Follow-Up ---
Subjective General Date of Service: Apr 14, 2016. Chief Complaint: follow up symptomatic atrial fibrillation Pt evaluation today including: conversation w/ patient, physical exam History of Present Illness The patient is a 75 year old female seen in cardiology follow up. Patient is feeling well. Telemetry reveals no AF overnight or today thus far. EKG this am revealed SB at 55 with stable QTC of 432 ms. INR is 3.5. Allergies Coded Allergies: Nitrofurantoin (Verified Allergy, Mild, HIVES, 04/11/16) Penicillins (Verified Allergy, Mild, HIVES, 04/11/16) Eggs or Egg-derived Products (Verified Adverse Reaction, Mild, GI SYMPTOMS , 04/11/16) Social History Smoking Status: Never Smoker Hx Tobacco Use In Past Year?: No Hx Alcohol Use - Type And Amou: No Hx Substance Use - Type And Am: No Physical Exam Vital Signs Last Vital Signs Documentation Date Time Temp Pulse Resp B/P Pulse Ox O2 Delivery O2 Flow Rate FiO2 04/14/16 08:09 36.6 52 18 109/61 95 Room Air Physical Exam Neck: supple Lungs: Auscultation: no wheezing, no rales/crackles, no rhonchi Cardiovascular: Heart Auscultation: RRR, no murmurs, no rubs, no gallops Abdomen: Inspection & Palpation: soft, non-distended Extremities: no cyanosis, no edema Neurologic: Gait & Station: pertinent finding (no focal deficits ) Assessment and Plan Assessment and Plan Impression: 75 year old female 1. Symptomatic AF RVR, spontaneously converted to SB, has completed sotalol load received 6 doses of 80 mg Q 12 hours while on telemetry 2. INR at goal, borderline elevated Plan: 1. Stable for DC on sotalol 80 mg PO BID. 2. Discontinue prior metoprolol (replaced with sotalol) at discharge. 3. continue same irbesartan dose. 4. Reduce coumadin dose back to home dose of 3 mg, follow up with anticoag clinic, with INR early next week. 5. Routine cardio follow up with Dr Maldonado within 2-4 weeks. -Patient to avoid any medications that prolong the QT interval such as Quinolone or macrolide antibiotics. Familia Wilkinson DO Laboratory Results Last 24 Hours Test 04/14/16 06:40 Prothrombin Time 39.6 SECONDS Prothromb Time International Ratio 3.5
[2016-04-14 11:53] VITALS: BP 97/65; PULSE 51; TEMP 36.6; O2SAT 96
[2016-04-14] MEDS ORDERED: BTP80 PO (13:25)
--- NOTE | 2016-04-14 13:29 | Discharge Instructions ---
Discharge Instructions Admission Reason for Admission: A-FIB Discharge Discharge Diagnosis / Problem: RAPID AFIB Discharge Goals Goal(s): Decrease discomfort, Improve function Activity Recommendations Activity Limitations: resume your previous activity . Instructions / Follow-Up Instructions / Follow-Up FOLLOWUP WITH FAMILY DOCTOR ON Apr AT 12:30PM. FOLLOWUP WITH COUMADIN CLINIC IN 3-4 DAYS FOR COUMADIN DOSING. FOLLOWUP WITH CARDIOLOGY IN 2 -4 WEEKS PATIENT TO AVOID MEDICATIONS WHICH CAUSE QT PROLONGATION LIKE QUINOLONES ( LEVAQUIN, CIPROFLOXACIN, AVELOX), MACROLIDES ( AZITHROMYCIN, ERYTHROMYCIN, CLARITHROMYCIN) Current Hospital Diet Patient's current hospital diet: AHA Diet (Heart Healthy) Discharge Diet Recommended Diet: AHA Diet (Heart Healthy) Pending Studies Studies pending at discharge: no Medical Emergencies . Who to Call and When: Medical Emergencies: If at any time you feel your situation is an emergency, please call 911 immediately. . Non-Emergent Contact Non-Emergency issues call your: Primary Care Provider . . "Provider Documentation" section prepared by Franklin Colon. VTE Core Measure Inpt VTE Proph given/why not?: Warfarin (Coumadin)
[2016-04-14] MEDS ORDERED: CMD3 PO (13:37)
[2016-04-14 14:19] VITALS: BP 102/58; PULSE 55; TEMP 36.6; O2SAT 98
[2016-04-14] MEDS ORDERED: WARFARIN SOD 3 MG TAB PO SCH (16:00)
--- NOTE | 2016-04-14 19:47 | Progress Note ---
Internal Med Progress Note Date of Service: Apr 14, 2016. Provider Documentation: SUBJECTIVE: resting comfortably no chest pain or sob no dizziness ok to go home OBJECTIVE: Vital Signs-as noted below Exam: General-alert and oriented x 3 ENT-normal hearing Neck-no neck masses Lungs-cta b/l no wheezing or crackles Heart-s1 and s2 heard irregular, no murmurs Abdomen-soft bowel sounds present non tender no distension Extremities-no edema no erythema Neuro-alert and awake moves extremities Lab data as noted below. ASSESSMENT & PLAN: SYMPTOMATIC ATRIAL FIBRILLATION Cardiology Dr. Maldonado recommends Sotalol initiation and monitor in tele home Lopressor held discharged on sotalol 80mg bid and Coumadin 3mg daily f/u with Coumadin clinic HYPERTENSIVE URGENCY BP on arrival 183/100 holding metoprolol as above received amlodipine 5mg x 1 ordered by cardio on irbesartan on sotalol stable currently. f/u with pcp CKD STAGE III baseline creat 1.1, cr 1.1 today. HX DVT on Coumadin, INR therapeutic discharged home Vital Signs: Date Time Temp Pulse Resp B/P Pulse Ox O2 Delivery O2 Flow Rate FiO2 04/14/16 14:19 36.6 55 20 98 Room Air 04/14/16 12:00 Room Air 04/14/16 11:53 36.6 51 18 97/65 96 Room Air 04/14/16 08:09 36.6 52 18 109/61 95 Room Air 04/14/16 08:00 Room Air 04/14/16 04:00 36.6 54 18 107/56 93 Room Air 04/14/16 04:00 Room Air 04/14/16 00:00 Room Air 04/14/16 00:00 36.5 55 18 100/55 92 Room Air 04/13/16 20:00 Room Air 04/13/16 19:53 36.6 59 18 97/62 96 Lab Results: Results Past 24 Hours Test 04/14/16 06:40 Range/Units Prothrombin Time 39.6 9.0-12.0 SECONDS Prothromb Time International Ratio 3.5 0.9-1.1
--- NOTE | 2016-04-14 19:48 | Discharge Summary ---
Discharge Summary Admission Date: Apr 11, 2016 at 18:42 Discharge Date: Apr 14, 2016 Discharge Disposition: Home Principal Diagnosis: RAPID AFIB Secondary Diagnoses/Problems: (1) Basal cell carcinoma Status: Chronic (2) CKD (chronic kidney disease), stage III Status: Chronic (3) DVT (deep venous thrombosis) Status: Chronic (4) GERD (gastroesophageal reflux disease) Status: Chronic (5) HTN (hypertension) Status: Chronic (6) Osteoporosis Status: Chronic (7) Paroxysmal a-fib Status: Chronic Consultations: CARDIOLOGY Medication Reconciliation New Medications: Sotalol HCl (Sotalol HCl) 80 Mg Tab 80 MG PO BID17, #60 TAB 2 Refills Warfarin Sod (Coumadin) 3 Mg Tab 3 MG PO DAILY@16, #30 TAB 2 Refills Continued Medications: Acetaminophen (Tylenol) 500 Mg Tab 500 MG PO TID PRN for Pain, TAB Calcium (Caltrate) 600 Mg Tab 600 MG PO DAILY, TAB Celecoxib (CeleBREX) 200 Mg Cap 200 MG PO BID, CAP Cholecalciferol (Vitamin D) 1,000 Inter.unit Tab 1000 INTER.UNIT PO DAILY, TAB Irbesartan (Irbesartan) 75 Mg Tab 75 MG PO DAILY, #90 Lorazepam (Lorazepam) 0.5 Mg Tab 1 TAB PO TID PRN for Anxiety for 30 Days, #90 TAB Magnesium Oxide (Magnesium Oxide) 400 Mg Cap 1 CAP PO DAILY for 30 Days, #30 CAP 3 Refills Pantoprazole (Protonix) 40 Mg Tab 1 TAB PO DAILY for 30 Days, #30 TAB 3 Refills Tramadol Hcl (Ultram) 50 Mg Tab 50 MG PO Q4 PRN for Pain, #100 Discontinued Medications: Metoprolol Succinate (Metoprolol Succinate ER) 25 Mg Tabcr 25 MG PO BID, #60 Warfarin Sod (Coumadin) 3 Mg Tab 3 MG PO WK TAKE ON SATURDAY Warfarin Sod (Coumadin) 3 Mg Tab 0.5 TAB PO 6XWK all days except saturday Admission Information HPI (per Admitting provider): 75 year old female who presents to the ER with palpitations, dizziness, and headache. Patient reports her symptoms began yesterday. She reports history of paroxysmal atrial fibrillation and says that the symptoms she has been experiencing are similar to when she has been in a. fib in the past. She reports feeling vert fatigued as well. Today when she went to get out of bed she felt very dizzy and lightheaded. She denies any syncope. She also had a headache today and took her blood pressure and reports it was too high to read on the monitor. She denies any blurred vision or unilateral weakness. She denies chest pain or pressure. No shortness of breath. She denies abdominal pain , nausea, vomiting, or diarrhea. No fever or chills. She reports urinary frequency but denies dysuria. In the ER, patient is found to be in atrial fibrillation with rate in the low 100s. She was given metoprolol 15mg IV x 1. She was evaluated by Dr. Maldonado in the ER who recommended admission for Sotalol therapy initiation. BP was also noted to be high 183/100. Dr. Scruggs ordered amlodipine 5mg x 1. Physical Exam (per Admitting): General Appearance: no apparent distress Head: normocephalic Eyes: normal inspection ENT: hearing grossly normal Neck: supple, no JVD Respiratory/Chest: lungs clear, normal breath sounds, no respiratory distress Cardiovascular: no edema, + irregularly irregular Abdomen/GI: normal bowel sounds, non tender, soft Extremities/Musculoskelatal: normal inspection, no calf tenderness Neurologic/Psych: no motor/sensory deficits, alert, normal mood/affect, oriented x 3 Skin: normal color, warm/dry Physical Exam (per Admitting): General Appearance: no apparent distress Head: normocephalic Eyes: normal inspection ENT: hearing grossly normal Neck: supple, no JVD Respiratory/Chest: lungs clear, normal breath sounds, no respiratory distress Cardiovascular: no edema, + irregularly irregular Abdomen/GI: normal bowel sounds, non tender, soft Extremities/Musculoskelatal: normal inspection, no calf tenderness Neurologic/Psych: no motor/sensory deficits, alert, normal mood/affect, oriented x 3 Skin: normal color, warm/dry Hospital Course SYMPTOMATIC ATRIAL FIBRILLATION Cardiology Dr. Maldonado recommends Sotalol initiation and monitor in tele home Lopressor held discharged on sotalol 80mg bid and Coumadin 3mg daily f/u with Coumadin clinic HYPERTENSIVE URGENCY BP on arrival 183/100 holding metoprolol as above received amlodipine 5mg x 1 ordered by cardio on irbesartan on sotalol stable currently. f/u with pcp CKD STAGE III baseline creat 1.1, cr 1.1 today. HX DVT on Coumadin, INR therapeutic discharged home Total time spent on discharge = 35MINUTES This includes examination of the patient, discharge planning, medication reconciliation, and communication with other providers. Discharge Instructions Discharge Instructions Admission Reason for Admission: A-FIB Discharge Discharge Diagnosis / Problem: RAPID AFIB Discharge Goals Goal(s): Decrease discomfort, Improve function Activity Recommendations Activity Limitations: resume your previous activity . Instructions / Follow-Up Instructions / Follow-Up FOLLOWUP WITH FAMILY DOCTOR ON Apr AT 12:30PM. FOLLOWUP WITH COUMADIN CLINIC IN 3-4 DAYS FOR COUMADIN DOSING. FOLLOWUP WITH CARDIOLOGY IN 2 -4 WEEKS PATIENT TO AVOID MEDICATIONS WHICH CAUSE QT PROLONGATION LIKE QUINOLONES ( LEVAQUIN, CIPROFLOXACIN, AVELOX), MACROLIDES ( AZITHROMYCIN, ERYTHROMYCIN, CLARITHROMYCIN) Current Hospital Diet Patient's current hospital diet: AHA Diet (Heart Healthy) Discharge Diet Recommended Diet: AHA Diet (Heart Healthy) Pending Studies Studies pending at discharge: no Medical Emergencies . Who to Call and When: Medical Emergencies: If at any time you feel your situation is an emergency, please call 911 immediately. . Non-Emergent Contact Non-Emergency issues call your: Primary Care Provider . . "Provider Documentation" section prepared by Franklin Colon. VTE Core Measure Inpt VTE Proph given/why not?: Warfarin (Coumadin)
[2016-04-15] MEDS ORDERED: WARFARIN SOD 3 MG TAB PO SCH (16:00)
== END 2016-04-14 14:30 | disposition home or self-care (01) | DRG 309 ==
LOC: ENRESERVTM → ENRESERVDT → C.EDB 12:01 → C.2T 18:42
PROVIDERS: ADMIT Internal Medicine; ATTEND Internal Medicine
DX: I48.0 Paroxysmal atrial fibrillation (principal); D68.51 Activated protein C resistance; I82.509 Chronic embolism and thrombosis of unspecified deep veins of unspecified lower extremity; M81.0 Age-related osteoporosis without current pathological fracture; N18.3 Chronic kidney disease, stage 3 (moderate); K21.9 Gastro-esophageal reflux disease without esophagitis; I16.0 Hypertensive urgency; I12.9 Hypertensive chronic kidney disease with stage 1 through stage 4 chronic kidney disease, or unspecified chronic kidney disease; R51 Headache; C44.91 Basal cell carcinoma of skin, unspecified; I48.2 Chronic atrial fibrillation; R07.9 Chest pain, unspecified; R53.83 Other fatigue; Z79.1 Long term (current) use of non-steroidal anti-inflammatories (NSAID); Z79.01 Long term (current) use of anticoagulants; Z79.891 Long term (current) use of opiate analgesic; Z79.899 Other long term (current) drug therapy

== ENCOUNTER 2017-11-20 09:16 | Observation (INO) | payer OTHER ==
[~2017-11-20] VITALS: Ht 175.3 cm; Wt 92.0 kg
[2017-11-20] VITALS (7 sets, daily range): BP systolic 110–176; BP diastolic 74–100; PULSE 84–104; TEMP 36–36.7; O2SAT 92–98; Ht 175.3 cm; Wt 92.0 kg
[~2017-11-20 09:16] MED LIST changes: -ACET-1256 PO; +BTP80 PO; -CMD1 PO; +LORA0.5T12 PO; -TPRSR/25 PO; -ULT/50 PO
[2017-11-20] MEDS ORDERED: LABETALOL HCL IV 5 MG/ML 20ML IV STA (09:28)
[2017-11-20 09:49] LABS: BASO % 0.7 %; BASO ABS # 0.06 K/uL (0-0.2); EOS % 2.1 %; EOS ABS # 0.17 K/uL (0-0.5); HEMATOCRIT 41.5 % (37-47); HEMOGLOBIN 13.6 g/dL (12.0-16.0); IG# 0.03 K/uL (0.00-0.02); LYMPH % 17.5 %; LYMPH ABS # 1.41 K/uL (1.2-3.4); MEAN CELL VOLUME 94.5 fL (80-100); MEAN CORPUSCULAR HGB CONC 32.8 g/dl (32-36); MEAN PLATELET VOLUME 10.7 fL (7.4-10.4); MONO % 12.1 %; MONO ABS # 0.97 K/uL (0.11-0.59); NEUT % 67.2 %; PLATELET COUNT 265 K/uL (130-400); RED CELL DISTRIBUTION WIDTH CV 13.1 % (11.5-14.5); RED CELL DISTRIBUTION WIDTH SD 45.4 fL (36.4-46.3); WHITE BLOOD COUNT 8.04 K/uL (4.8-10.8)
--- NOTE | 2017-11-20 09:49 | DIAGNOSTIC IMAGING REPORT ---
SINGLE VIEW CHEST CLINICAL HISTORY: Atypical chest pain. FINDINGS: An AP, portable, upright chest radiograph is compared to study dated 04/11/2016 and correlated with chest CT dated 11/03/2013. The examination is degraded by portable technique and patient rotation. The heart is top normal for projection and there is atherosclerotic calcification of the thoracic aorta. The pulmonary vasculature is noncongested. Chronic interstitial thickening is similar to previous. No airspace consolidation or large pleural effusion is identified. No pneumothorax is seen. The skeletal structures are osteopenic. The bony thorax is grossly intact. IMPRESSION: No acute cardiopulmonary abnormality. Electronically signed by: Aleksander Hampton M.D. 11/20/2017 9:47 AM Dictated Date/Time: 11/20/2017 9:46 AM
[2017-11-20 09:56] LABS: INR 2.1 (0.9-1.1)
[2017-11-20] MEDS ORDERED: ASPIRIN 81 MG CHEW PO STA (10:03)
--- NOTE | 2017-11-20 10:07 | DIAGNOSTIC IMAGING REPORT ---
CT SCAN OF THE BRAIN WITHOUT IV CONTRAST CLINICAL HISTORY: Headache. COMPARISON STUDY: CT of the brain dated 12/29/2015. TECHNIQUE: Unenhanced axial CT scan of the brain is performed from the vertex to the skull base. A dose lowering technique was utilized adhering to the principles of ALARA. CT DOSE: 638.56 mGycm FINDINGS: Brain parenchyma: There are age-related involutional changes noting mild subcortical and periventricular microangiopathic change. There is no hemorrhage, mass effect, or evidence of acute territorial ischemia by CT criteria. Dunn-white matter is preserved. No extra-axial fluid collection is seen. 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 Ventricles, sulci, cisterns: Prominent secondary to involutional change. Intracranial vasculature: There is atherosclerotic calcification of the cavernous carotid and vertebral arteries. Calvarium: Unremarkable. Sinuses and mastoids: Trace mucosal thickening is seen in the right maxillary antrum. The remaining visualized paranasal sinuses are clear. The mastoid air cells are well pneumatized. Orbits: The bony orbits are grossly intact. IMPRESSION: There is no hemorrhage, mass effect, or evidence of acute territorial ischemia by CT criteria. Electronically signed by: Aleksander Hampton M.D. 11/20/2017 10:06 AM Dictated Date/Time: 11/20/2017 10:04 AM
[2017-11-20 10:10] LABS: BLOOD UREA NITROGEN 15 mg/dl (7-18); CALCIUM 9.8 mg/dl (8.5-10.1); CARBON DIOXIDE 29 mmol/L (21-32); CKMB 1.8 ng/ml (0.5-3.6); CREATININE 1.11 mg/dl (0.60-1.20); GLUCOSE 98 mg/dl (70-99); POTASSIUM 4.1 mmol/L (3.5-5.1); SODIUM 139 mmol/L (136-145)
[2017-11-20] MEDS ORDERED: AMLODIPINE BESYLATE 5 MG TAB PO ONE (10:30)
[2017-11-20] MEDS ORDERED: ACETAMINOPHEN 325 MG TAB PO PRN (11:00)
[2017-11-20] MEDS ORDERED: WARF3TAB6 PO (11:01)
[2017-11-20] MEDS ORDERED: CHOL100010 PO (11:01)
[2017-11-20] MEDS ORDERED: IRBE1TAB48 PO (11:01)
[2017-11-20] MEDS ORDERED: CALC-393 PO (11:01)
[2017-11-20] MEDS ORDERED: ULT/50 PO (11:04)
[2017-11-20] MEDS ORDERED: ACET-1256 PO (11:04)
--- NOTE | 2017-11-20 11:06 | CARDIOLOGY CONSULTATION ---
DATE OF CONSULTATION: 11/20/2017 CONSULTATION REQUESTED BY: Dr. Gu. REASON FOR CONSULTATION: Chest discomfort with uncontrolled hypertension. HISTORY OF PRESENT ILLNESS: Mrs. Evangelista is a very pleasant 77-year-old woman who follows with myself as an outpatient in our cardiology clinic for history of paroxysmal atrial fibrillation. She presented to [facility] early in the a.m. of 11/20/2017 at the recommendation of the [facility] triage nurse with complaints of chest discomfort and headache. The patient states that she went to bed in her normal state of health last night, but woke up at approximately 4 a.m. with a severe headache that was associated with pounding sensation in her chest as though she was back in atrial fibrillation and a sensation of chest pressure. She described the pressure as though someone was squeezing her or wrapping a band around her chest. At that time, she took a quarter of her irbesartan thinking that her blood pressure might be elevated. She then checked her blood pressure a few minutes later and it was incalculable by her machine at home as being too high. Few hours later, she then had her son come over, checked her blood pressure on his machine and once again it was unreadable, given that it is over the normal limits of the machine. At that time, she called [facility] triage nurse and was recommended she present to the Emergency Department for urgent evaluation. Upon arrival to the Emergency Department, her initial blood pressure was 203/136 and she was back in atrial fibrillation with rapid ventricular response in the 100s. Currently, she states that she is feeling a little better at rest, still with just a slight headache and just overall feeling tired now, but her palpitations and chest discomfort have resolved. She states that she has been compliant with her medications at home; however, she has been having issues with hypotension and she has been decreasing her irbesartan on her own and she is now taking a quarter of a 300 mg tablet daily. Of note, the patient was recently found to have a bump in her creatinine as an outpatient and renal ultrasound along with carotid Dopplers were ordered. PAST SURGICAL HISTORY: 1. Cholecystectomy. 2. Breast biopsy. 3. Parathyroidectomy. 4. Multiple colonoscopies. 5. D and C. 6. Basal cell cancer removed from the right eye. 7. Tonsillectomy as a child. MEDICAL ILLNESSES: 1. Paroxysmal atrial fibrillation on chronic sotalol and Coumadin therapy. 2. Factor V Leiden deficiency, on chronic Coumadin therapy. 3. History of DVT. 4. Hypertension. 5. Osteoporosis. 6. Stage III chronic kidney disease. 7. GERD. FAMILY HISTORY: Noncontributory. SOCIAL HISTORY: Denies any alcohol, tobacco or recreational drug use. She lives at home. She is retired. REVIEW OF SYSTEMS: As per HPI, all other review of systems reviewed and negative at this time. ALLERGIES: 1. EGG. 2. NITROFURANTOIN. 3. PENICILLIN. MEDICATIONS AN OUTPATIENT: 1. Irbesartan 150 mg daily. 2. Sotalol 80 mg b.i.d. 3. Coumadin 3 mg as directed by the Coumadin clinic. 4. Protonix daily. 5. Prednisone 5 mg daily. 6. Magnesium oxide daily. PHYSICAL EXAMINATION: VITALS: Temperature is 37, pulse 110, respiratory rate 12, blood pressure 161/100. GENERAL: Awake, alert, oriented x3, in no acute distress. HEENT: Normocephalic, atraumatic. Pupils equal, round, reactive to light and accommodation. Extraocular muscles intact. Anicteric sclerae. Moist mucous membranes. NECK: No JVD, no bruit. CARDIOVASCULAR: Irregularly irregular, unable to appreciate any murmurs, rubs or gallops. PULMONARY: Clear to auscultation bilaterally. No rales, rhonchi, or wheezing. ABDOMEN: Bowel sounds x4, soft. No rebound, guarding, tenderness. No organomegaly. No abdominal bruits present. EXTREMITIES: No clubbing, cyanosis or edema. +2 pedal pulses bilaterally. SKIN: Warm and dry. TEST RESULTS AND LABORATORY STUDIES OF SIGNIFICANCE: Sodium 139, potassium 4.1, BUN 15, creatinine 1.1. CPK of 90. Initial troponin negative. INR 2.1. Of note, her INRs have been therapeutic since September 12. A 12-lead EKG is pending at this time. However, review of telemetry monitoring shows atrial fibrillation with rapid ventricular response in the low 100s. IMPRESSION: 1. Chest discomfort, likely secondary to hypertensive urgency. 2. Paroxysmal atrial fibrillation, currently in Afib with RVR, on chronic sotalol therapy with therapeutic INRs since September. 3. Difficult to control hypertension. 4. Factor V Leiden deficiency. RECOMMENDATIONS: It was my pleasure to see Mrs. Evangelista in consultation today. From a cardiac standpoint, the patient was counseled that given her presentation, I do believe she is suffering from hypertensive urgency, given the fact that her blood pressure was significantly elevated on presentation along with her symptoms. So at this point, she will be given labetalol in the ER and I will start her on prednisone 5 mg daily and she should be continued on 150 mg of irbesartan daily along with her outpatient doses of sotalol 80 mg b.i.d. and her Coumadin. We will perform a 2D echocardiogram to evaluate for any structural abnormalities. Her cardiac enzymes will be trended and will follow her blood pressure closely. In terms of her atrial fibrillation, she is not very symptomatic now at rest, which she was counseled that we could possibly perform a DC cardioversion in the a.m. and she should be made n.p.o. after midnight for the possibility of this occurring, but again a final decision will be made tomorrow.
[2017-11-20] MEDS ORDERED: PRD/25 PO (11:09)
[2017-11-20] MEDS ORDERED: TRAMADOL HCL 50 MG TAB PO PRN (11:15)
[2017-11-20] MEDS ORDERED: IV FLUIDS COMPLETED PRN (11:30)
[2017-11-20] MEDS ORDERED: PROMETHAZINE HCL INJ 12.5 MG in SODIUM CHLORIDE 0.9% 50ML 50 ML IV PRN (12:00)
[2017-11-20] MEDS ORDERED: IRBESARTAN 75 MG TAB PO ONE (13:30)
--- NOTE | 2017-11-20 14:23 | History and Physical ---
History & Physical Date & Time of Service: Nov 20, 2017 ~ 10:30 Chief Complaint: Headache, palpitations Primary Care Physician: Natasha Chavez M.D. History of Present Illness 77-year-old female who presents to the ED with headache and palpitations. Patient reports she started to not feel well yesterday with reports of generalized body aches and fatigue. She woke up at around 4:00 this morning and had a severe headache. She also felt as though she was in atrial fibrillation as she felt her heart racing. Patient attempted to take her blood pressure at home however the machine would not provide a reading. Over the past few months, patient reports she has been having troubles with her blood pressure dropping too low. She has been decreasing her irbesartan. She reports associated nausea this morning however denies vomiting, abdominal pain, diarrhea. She has chronic lightheadedness and dizziness which is unchanged baseline. No diaphoresis or syncopal events. She denies shortness of breath. No fevers or chills. She denies any urinary symptoms. In the ED, patient was found to be in atrial fibrillation with RVR with rates in the low 100s. She is also only significantly hypertensive with BP 203/136. She was given labetalol 10 mg IV with improvement in BPs. Cardiology was consulted by the ED Dr. Maldonado evaluated the patient at the bedside. Past Medical/Surgical History Medical Problems: (1) Basal cell carcinoma Status: Chronic (2) CKD (chronic kidney disease), stage III Status: Chronic (3) DVT (deep venous thrombosis) Status: Chronic (4) GERD (gastroesophageal reflux disease) Status: Chronic (5) HTN (hypertension) Status: Chronic (6) Osteoporosis Status: Chronic (7) Paroxysmal a-fib Status: Chronic Surgical Problems: (1) H/O dilation and curettage Status: Chronic (2) H/O parathyroidectomy Status: Chronic (3) History of cholecystectomy Status: Chronic (4) S/P tonsillectomy and adenoidectomy Status: Chronic Family History FH: colon cancer SISTER Social History Smoking Status: Never Smoker Alcohol Use: none Immunizations History of Influenza Vaccine: Yes Influenza Vaccine Date: Jan 15, 2017 History of Tetanus Vaccine?: Yes Tetanus Immunization Date: August 27, 2013 History of Pneumococcal: Yes Pneumococcal Date: May 10, 2015 Allergies Coded Allergies: Nitrofurantoin (Verified Allergy, Mild, HIVES, 11/20/17) Penicillins (Verified Allergy, Mild, HIVES, 11/20/17) Eggs or Egg-derived Products (Verified Adverse Reaction, Mild, GI SYMPTOMS , 11/20/17) Home Medications Scheduled Calcium Carbonate (Calcium), 600 MG PO DAILY Cholecalciferol (Vitamin D), 1 TAB PO DAILY Irbesartan (Irbesartan), 150 MG PO DAILY Magnesium Oxide (Magnesium Oxide), 1 CAP PO DAILY Sotalol HCl (Sotalol HCl), 80 MG PO BID17 Warfarin Sod (Jantoven), 1.5 MG PO DAILY Scheduled PRN Acetaminophen (Tylenol), 500 MG PO TID PRN for Pain Pantoprazole (Protonix), 1 TAB PO UD PRN for PRN Prednisone (Prednisone), 1 TAB PO DAILY PRN for Pain Tramadol Hcl (Ultram), 50 MG PO Q4 PRN for Pain Review of Systems ROS per HPI, all other systems reviewed and negative Physical Exam Vital Signs Date Time Temp Pulse Resp B/P (MAP) Pulse Ox O2 Delivery O2 Flow Rate FiO2 11/20/17 13:46 131/81 (98) 11/20/17 12:42 36.0 104 18 176/100 (125) 97 Room Air 11/20/17 12:35 Room Air 11/20/17 12:19 102 18 145/128 98 11/20/17 11:41 106 20 152/105 97 Room Air 11/20/17 10:17 98 Room Air 11/20/17 10:06 110 17 161/100 98 Room Air 11/20/17 09:43 100 15 151/103 99 Room Air 11/20/17 09:39 105 15 145/82 98 Room Air 11/20/17 09:36 106 11/20/17 09:23 97 Room Air 11/20/17 09:23 37.0 109 20 203/136 99 Room Air 11/20/17 09:20 99 Room Air General Appearance: WD/WN, no apparent distress Head: normocephalic, atraumatic Eyes: normal inspection, EOMI, sclerae normal ENT: hearing grossly normal, + pertinent finding (Mucous membranes moist) Neck: supple, no JVD, trachea midline Respiratory/Chest: lungs clear, normal breath sounds, no respiratory distress Cardiovascular: no edema, normal peripheral pulses, + tachycardia (Heart rate in the low 100s), + irregularly irregular Abdomen/GI: normal bowel sounds, non tender, soft, no organomegaly Extremities/Musculoskelatal: normal inspection, no calf tenderness, normal capillary refill Neurologic/Psych: no motor/sensory deficits, alert, normal mood/affect, oriented x 3 Skin: normal color, warm/dry Diagnostics Laboratory Results Results Past 24 Hours Test 11/20/17 09:30 Range/Units White Blood Count 8.04 4.8-10.8 K/uL Red Blood Count 4.39 4.2-5.4 M/uL Hemoglobin 13.6 12.0-16.0 g/dL Hematocrit 41.5 37-47 % Mean Corpuscular Volume 94.5 80-100 fL Mean Corpuscular Hemoglobin 31.0 25-34 pg Mean Corpuscular Hemoglobin Concent 32.8 32-36 g/dl Platelet Count 265 130-400 K/uL Mean Platelet Volume 10.7 7.4-10.4 fL Neutrophils (%) (Auto) 67.2 % Lymphocytes (%) (Auto) 17.5 % Monocytes (%) (Auto) 12.1 % Eosinophils (%) (Auto) 2.1 % Basophils (%) (Auto) 0.7 % Neutrophils # (Auto) 5.40 1.4-6.5 K/uL Lymphocytes # (Auto) 1.41 1.2-3.4 K/uL Monocytes # (Auto) 0.97 0.11-0.59 K/uL Eosinophils # (Auto) 0.17 0-0.5 K/uL Basophils # (Auto) 0.06 0-0.2 K/uL RDW Standard Deviation 45.4 36.4-46.3 fL RDW Coefficient of Variation 13.1 11.5-14.5 % Immature Granulocyte % (Auto) 0.4 % Immature Granulocyte # (Auto) 0.03 0.00-0.02 K/uL Prothrombin Time 21.6 9.0-12.0 SECONDS Prothromb Time International Ratio 2.1 0.9-1.1 Sodium Level 139 136-145 mmol/L Potassium Level 4.1 3.5-5.1 mmol/L Chloride Level 103 98-107 mmol/L Carbon Dioxide Level 29 21-32 mmol/L Anion Gap 7.0 3-11 mmol/L Blood Urea Nitrogen 15 7-18 mg/dl Creatinine 1.11 0.60-1.20 mg/dl Est Creatinine Clear Calc Drug Dose 51.1 ml/min Estimated GFR () 54.7 Estimated GFR (Non- 47.2 BUN/Creatinine Ratio 13.9 10-20 Random Glucose 98 70-99 mg/dl Calcium Level 9.8 8.5-10.1 mg/dl Magnesium Level 2.0 1.8-2.4 mg/dl Total Creatine Kinase 90 26-192 U/L Creatine Kinase MB 1.8 0.5-3.6 ng/ml Creatine Kinase MB Ratio 2.0 0-3.0 Troponin I < 0.015 0-0.045 ng/ml Thyroid Stimulating Hormone (TSH) 2.560 0.300-4.500 uIu/ml Diagnostic Radiology HEAD CT IMPRESSION: There is no hemorrhage, mass effect, or evidence of acute territorial ischemia by CT criteria. CXR IMPRESSION: No acute cardiopulmonary abnormality. Impression Assessment and Plan HYPERTENSIVE URGENCY -Admit to telemetry -Patient presenting from home with reports of headache and palpitations; in the ED, found to be significantly hypertensive with BP 203/136 -Received labetalol 5 mg IV in the ED with improvement in BPs -Evaluated by cardiology in the ED and given amlodipine 5 mg -Has been decreasing irbesartan to 75 mg at home due to low BPs -will resume 150 mg daily -Serial cardiac enzymes, resting echocardiogram -Head CT negative for acute findings ATRIAL FIBRILLATION WITH RVR -History of paroxysmal atrial fibrillation on sotalol -Continue sotalol, anticoagulated on Coumadin with INR of 2.1 -Possible cardioversion in the a.m. as per cardiology HISTORY OF DVT -On Coumadin as above CKD STAGE III - baseline creat runs in the mid ones - creat noted to be 1.1 today - continue to monitor, avoid nephrotoxic agents when able DVT PROPHYLAXIS -Anticoagulated on Coumadin, INR 2.1 CODE STATUS -Patient is a full code as per my discussion with her. DISPOSITION -The patient will be placed as observation status for now until further work up is complete. Attending Addendum Pt was seen and examined. Agreed with Shiela FAN exam, assessment and plan. 77- year-old female with PMH of P. Afib, HTN, CKD stage 3, presents to the ED with headache and palpitations. In the ER BP was 203/136 and pt was found in Afib wit RVR. CT head on admission was negative. Received IV labetalol in the ER. Currently BP stable. Will consult cardiology. Will keep NPO after midnight for possible cardioversion in the morning. Continue monitor in tele. MD Luz Maria Advanced Directives Existing Living Will: No Existing Power of Deckhand [employer]: Yes (GEOFF MENEEZS ) Resuscitation Status VTE Prophylaxis Will order VTE Prophylaxis: Yes
--- NOTE | 2017-11-20 14:47 | ECHOCARDIOGRAM REPORT ---
*NOTICE TO RECEIVING LIBERTARIAN AGENCY This information is strictly Confidential and protected under [place] law. [place] law prohibits you from making any further disclosure of this information unless further disclosure is expressly permitted by the written consent of the person to whom it pertains or is authorized by law. A general authorization for the release of medical or other information is not sufficient for this purpose. Hospital accepts no responsibility if the information is made available to any other person, INCLUDING THE PATIENT. Interpretation Summary * Name: TYSHAWN KEITH Study Date: 11/20/2017 01:06 PM BP: 176/100 mmHg * Patient Location: C.2T\S\E219\S\1 HR: 103 * : 1940 (M/d/yyyy) Gender: Female Height: 69 in * Age: 77 yrs Ethnicity: [place] Weight: 215 lb * Ordering Physician: Franko Maldonado * Referring Physician: Self, Referred * Performed By: Deloris Mercer RDCS * * Reason For Study: CHEST PAIN * BSA: 2.1 m2 * -- Conclusions -- * The left ventricle is normal in size. * There is mild concentric left ventricular hypertrophy. * The left ventricular wall motion is normal. * Left ventricular systolic function is normal. * Ejection Fraction = 60-65%. * The left atrium is moderately dilated. * Aortic valve sclerosis moderate, without significant aortic valvular stenosis. * There is trace mitral regurgitation. * There is mild to moderate tricuspid regurgitation. Procedure Details * A complete two-dimensional transthoracic echocardiogram was performed (2D, M-mode, Doppler and color flow Doppler). Left Ventricle * The left ventricle is normal in size. * There is mild concentric left ventricular hypertrophy. * Left ventricular systolic function is normal. * Ejection Fraction = 60-65%. * The left ventricular wall motion is normal. Right Ventricle * The right ventricle is normal in size and function. Atria * The left atrium is moderately dilated. * Right atrial size is normal. * No ASD detected; PFO is not assessed. Mitral Valve * The mitral valve anatomy is normal. * There is no mitral valve stenosis. * There is trace mitral regurgitation. Tricuspid Valve * The tricuspid valve anatomy is normal. * There is no tricuspid stenosis. * There is mild to moderate tricuspid regurgitation. * Doppler findings do not suggest pulmonary hypertension. Aortic Valve * The aortic valve is trileaflet. * Aortic valve sclerosis moderate, without significant aortic valvular stenosis. * No hemodynamically significant valvular aortic stenosis. * No aortic regurgitation is present. Pulmonic Valve * The pulmonic valve is not well visualized. * Pulmonic stenosis is absent. * Mild pulmonic valvular regurgitation. Great Vessels * The aortic root is normal size. Pericardium/Pleural * There is no pericardial effusion. Great Vessels * Normal inferior vena cava diameter and respiratory variation suggests normal central venous pressure. MMode 2D Measurements and Calculations IVSd 1.3 cm IVSs 1.6 cm LVIDd 4.3 cm LVIDs 3.2 cm LVPWd 1.2 cm LVPWs 2.0 cm IVS/LVPW 1.1 FS 26.5 % EDV(Teich) 83.3 ml ESV(Teich) 39.9 ml EF(Teich) 52.1 % EDV(cubed) 79.8 ml ESV(cubed) 31.8 ml EF(cubed) 60.2 % % IVS thick 22.1 % % LVPW thick 70.2 % LV mass(C)d 195.8 grams LV mass(C)dI 91.9 grams/m\S\2 LV mass(C)s 234.1 grams LV mass(C)sI 109.9 grams/m\S\2 SV(Teich) 43.4 ml SI(Teich) 20.4 ml/m\S\2 SV(cubed) 48.1 ml SI(cubed) 22.6 ml/m\S\2 Ao root diam 3.2 cm Ao root area 8.0 cm\S\2 LA dimension 4.4 cm LA/Ao 1.4 LVAd ap4 25.0 cm\S\2 LVLd ap4 7.7 cm EDV(MOD-sp4) 67.6 ml EDV(sp4-el) 68.6 ml LVAs ap4 16.3 cm\S\2 LVLs ap4 6.9 cm ESV(MOD-sp4) 34.9 ml ESV(sp4-el) 32.6 ml EF(MOD-sp4) 48.4 % EF(sp4-el) 52.5 % LVAd ap2 26.1 cm\S\2 LVLd ap2 7.9 cm EDV(MOD-sp2) 72.7 ml EDV(sp2-el) 73.7 ml LVAs ap2 16.3 cm\S\2 LVLs ap2 6.9 cm ESV(MOD-sp2) 32.7 ml ESV(sp2-el) 32.6 ml EF(MOD-sp2) 55.1 % EF(sp2-el) 55.8 % LVLd %diff 1.8 % EDV(MOD-bp) 70.2 ml LVLs %diff 0.16 % ESV(MOD-bp) 33.9 ml EF(MOD-bp) 51.7 % SV(MOD-sp4) 32.8 ml SI(MOD-sp4) 15.4 ml/m\S\2 SV(MOD-sp2) 40.0 ml SI(MOD-sp2) 18.8 ml/m\S\2 SV(MOD-bp) 36.3 ml SI(MOD-bp) 17.0 ml/m\S\2 SV(sp4-el) 36.0 ml SI(sp4-el) 16.9 ml/m\S\2 SV(sp2-el) 41.1 ml SI(sp2-el) 19.3 ml/m\S\2 Doppler Measurements and Calculations MV E max melonie 102.5 cm/sec MV dec time 0.19 sec Ao V2 max 158.9 cm/sec Ao max PG 10.1 mmHg Ao max PG (full) 7.8 mmHg LV V1 max PG 2.3 mmHg LV V1 max 75.5 cm/sec TR max melonie 247.2 cm/sec
--- NOTE | 2017-11-20 15:09 | DIAGNOSTIC IMAGING REPORT ---
BILATERAL CAROTID DOPPLER STUDY HISTORY: carotid bruit COMPARISON: None. TECHNIQUE: Real-time, grayscale, and color Doppler sonography of the carotid arteries was performed. Imaging reviewed in the transverse and longitudinal planes. All measurements were calculated based on NASCET criteria. FINDINGS: Antegrade flow is seen in the bilateral vertebral arteries. The brachial pressures are hemodynamically similar. Mild calcified plaque within the bilateral carotid bifurcations. The peak systolic velocity within the right ICA is 64 cm/s. The right systolic ratio is 0.5. The peak systolic velocity within the left ICA is 72 cm/s. The left systolic ratio is 0.7. There is a 2.5 cm predominantly solid left thyroid nodule. This may contain a few punctate calcifications. IMPRESSION: 1. No hemodynamically significant stenosis seen within the carotid arteries. 2. A 2.5 cm left thyroid nodule. Ultrasound-guided fine needle aspiration is recommended for further evaluation. 3. These findings were called/faxed to the referring physician's office. Electronically signed by: Reymundo Graham M.D. 11/20/2017 3:07 PM Dictated Date/Time: 11/20/2017 3:05 PM
[2017-11-20] MEDS: WARFARIN SOD 0.5 MG TAB PO SCH (16:19)
--- NOTE | 2017-11-20 16:19 | EMERGENCY ROOM VISIT NOTE ---
History Report prepared by Suyapa: Carol Allen Under the Supervision of: Dr. Shaan Gu D.O. First contact with patient: 09:19 Chief Complaint: CHEST PAIN Stated Complaint: CHEST TIGHTNESS - HEADACHE - A FIB History of Present Illness The patient is a 77 year old female who presents to the Emergency Room with complaints of chest beginning at 0400 this morning. She notes a "terrible" headache woke her up at 0400 and she then developed a tightness in her chest, so she tried to take her blood pressure but it would not take. At 0700, she tried to take her blood pressure again but she was still unsuccessful. She reports her chest pain is now resolved but nothing modified her pain. Pt states her headache worsened gradually and it is not the worst headache of her life. She denies any nausea, vomiting, or diarrhea. She has a history of Afib and took her Coumadin last night. The patient states she was also cutting back her blood pressure medications because she felt it was too low. She had been titrating at home down her medications. Source of History: patient Onset: 0400 this morning Position: head, chest Symptom Intensity: "terrible" headache Quality: other (chest tightness) Timing: worsening Review of Systems See HPI for pertinent positives & negatives. A total of 10 systems reviewed and were otherwise negative. Past Medical & Surgical Medical Problems: (1) Basal cell carcinoma (2) CKD (chronic kidney disease), stage III (3) DVT (deep venous thrombosis) (4) GERD (gastroesophageal reflux disease) (5) HTN (hypertension) (6) Osteoporosis (7) Paroxysmal a-fib Surgical Problems: (1) H/O dilation and curettage (2) H/O parathyroidectomy (3) History of cholecystectomy (4) S/P tonsillectomy and adenoidectomy Family History FH: colon cancer SISTER Social History Smoking Status: Never Smoker Alcohol Use: none Housing Status: lives with significant other Current/Historical Medications Scheduled Calcium Carbonate (Calcium), 600 MG PO DAILY Cholecalciferol (Vitamin D), 1 TAB PO DAILY Irbesartan (Irbesartan), 75-150 MG PO DAILY Magnesium Oxide (Magnesium Oxide), 1 CAP PO DAILY Sotalol HCl (Sotalol HCl), 80 MG PO BID17 Warfarin Sod (Jantoven), 1.5 MG PO DAILY Scheduled PRN Acetaminophen (Tylenol), 500 MG PO TID PRN for Pain Pantoprazole (Protonix), 1 TAB PO UD PRN for PRN Prednisone (Prednisone), 1 TAB PO DAILY PRN for Pain Tramadol Hcl (Ultram), 50 MG PO Q4 PRN for Pain Allergies Coded Allergies: Nitrofurantoin (Verified Allergy, Mild, HIVES, 11/20/17) Penicillins (Verified Allergy, Mild, HIVES, 11/20/17) Eggs or Egg-derived Products (Verified Adverse Reaction, Mild, GI SYMPTOMS , 11/20/17) Physical Exam Vital Signs Date Time Temp Pulse Resp B/P (MAP) Pulse Ox O2 Delivery O2 Flow Rate FiO2 11/20/17 10:17 98 Room Air 11/20/17 10:06 110 17 161/100 98 Room Air 11/20/17 09:43 100 15 151/103 99 Room Air 11/20/17 09:39 105 15 145/82 98 Room Air 11/20/17 09:36 106 11/20/17 09:23 97 Room Air 11/20/17 09:23 37.0 109 20 203/136 99 Room Air 11/20/17 09:20 99 Room Air Physical Exam GENERAL: Sitting up in bed, alert, well appearing, well nourished, no distress, non-toxic EYE EXAM: normal conjunctiva. OROPHARYNX: no exudate, no erythema, lips, buccal mucosa, and tongue normal and mucous membranes are moist NECK: supple, no nuchal rigidity, no adenopathy, non-tender LUNGS: Clear to auscultation. Normal chest wall mechanics HEART: Tachycardic and irregularly irregular, S1 normal and S2 normal ABDOMEN: abdomen soft, non-tender, normo-active bowel sounds, no masses, no rebound or guarding. BACK: Back is symmetrical on inspection and there is no deformity, no midline tenderness, no CVA tenderness. SKIN: no rashes and no bruising UPPER EXTREMITIES: upper extremities are grossly normal. LOWER EXTREMITIES: No pitting edema. NEURO EXAM: Normal sensorium, cranial nerves II-XII grossly intact, normal speech, no gross weakness of arms, no gross weakness of legs. Medical Decision & Procedures Laboratory Results 11/20/17 09:30 Red Blood Count 4.39, Mean Corpuscular Volume 94.5, Mean Corpuscular Hemoglobin 31.0, Mean Corpuscular Hemoglobin Concent 32.8, Mean Platelet Volume 10.7, Neutrophils (%) (Auto) 67.2, Lymphocytes (%) (Auto) 17.5, Monocytes (%) (Auto) 12.1, Eosinophils (%) (Auto) 2.1, Basophils (%) (Auto) 0.7, Neutrophils # (Auto ) 5.40, Lymphocytes # (Auto) 1.41, Monocytes # (Auto) 0.97, Eosinophils # (Auto ) 0.17, Basophils # (Auto) 0.06 11/20/17 09:30 Test 11/20/17 09:30 White Blood Count 8.04 K/uL (4.8-10.8) Red Blood Count 4.39 M/uL (4.2-5.4) Hemoglobin 13.6 g/dL (12.0-16.0) Hematocrit 41.5 % (37-47) Mean Corpuscular Volume 94.5 fL (80-100) Mean Corpuscular Hemoglobin 31.0 pg (25-34) Mean Corpuscular Hemoglobin Concent 32.8 g/dl (32-36) Platelet Count 265 K/uL (130-400) Mean Platelet Volume 10.7 fL (7.4-10.4) Neutrophils (%) (Auto) 67.2 % Lymphocytes (%) (Auto) 17.5 % Monocytes (%) (Auto) 12.1 % Eosinophils (%) (Auto) 2.1 % Basophils (%) (Auto) 0.7 % Neutrophils # (Auto) 5.40 K/uL (1.4-6.5) Lymphocytes # (Auto) 1.41 K/uL (1.2-3.4) Monocytes # (Auto) 0.97 K/uL (0.11-0.59) Eosinophils # (Auto) 0.17 K/uL (0-0.5) Basophils # (Auto) 0.06 K/uL (0-0.2) RDW Standard Deviation 45.4 fL (36.4-46.3) RDW Coefficient of Variation 13.1 % (11.5-14.5) Immature Granulocyte % (Auto) 0.4 % Immature Granulocyte # (Auto) 0.03 K/uL (0.00-0.02) Prothrombin Time 21.6 SECONDS (9.0-12.0) Prothromb Time International Ratio 2.1 (0.9-1.1) Anion Gap 7.0 mmol/L (3-11) Est Creatinine Clear Calc Drug Dose 51.1 ml/min Estimated GFR () 54.7 Estimated GFR (Non- 47.2 BUN/Creatinine Ratio 13.9 (10-20) Calcium Level 9.8 mg/dl (8.5-10.1) Magnesium Level 2.0 mg/dl (1.8-2.4) Total Creatine Kinase 90 U/L (26-192) Creatine Kinase MB 1.8 ng/ml (0.5-3.6) Creatine Kinase MB Ratio 2.0 (0-3.0) Thyroid Stimulating Hormone (TSH) 2.560 uIu/ml (0.300-4.500) Laboratory results per my review. Medications Administered Medications (Trade) Dose Ordered Sig/Cristiano Route Start Time Stop Time Status Last Admin Dose Admin Labetalol HCl (Normodyne IV) 10 mg NOW STAT IV 11/20/17 09:28 11/20/17 09:30 DC 11/20/17 09:36 10 MG Aspirin (Aspirin Chew) 324 mg NOW STAT PO 11/20/17 10:03 11/20/17 10:05 DC 11/20/17 12:14 324 MG Amlodipine Besylate (Norvasc Tab) 5 mg NOW ONCE PO 11/20/17 10:30 11/20/17 10:31 DC 11/20/17 11:59 5 MG ECG Per My Interpretation Indication: chest pain Rate (beats per minute): 123 Rhythm: atrial fibrillation (with RVR) Findings: other (normal axis) ED Course ED COURSE: Vital signs were reviewed and showed Tachy and hypertensive The patients medical record was reviewed The above diagnostic studies were performed and reviewed. ED treatments and interventions as stated above. 0921: The patient was evaluated in room A3. A complete history and physical examination was performed. 1003: Ordered Labetalol 10 mg IV, Aspirin 324 mg PO 1005: Dr. Maldonado, Cardiology is at bedside. He agrees with the current plan of treatment for the pt at this time and will give more blood pressure medications. 1027: I reviewed the patient's case with I reviewed the patient's case with MITA Escamilla. She will evaluate the patient for further management. 1030: Ordered Norvasc 5 mg PO 1032: Upon reevaluation, the patient is resting comfortably. I discussed my findings with the patient and she understands and agrees with the treatment plan. Based on the patients age, coexisting illnesses, exam and lab findings the decision to treat as an inpatient was made. The patient remained stable while under my care. The patient will be evaluated for further management. Medical Decision Differential diagnoses includes but is not limited to acute coronary syndrome, myocardial infarction, pericarditis, pulmonary embolus, aortic dissection, pneumonia, pneumothorax, musculoskeletal, shingles, esophageal, headache, tension headache, cluster headache, migraine, subarachnoid hemorrhage, meningitis, mass, central venous thrombus, concussion, trauma and epidural/ subdural hemorrhage. Patient is a 77-year-old female who presents the ER for headache and precordial chest pain along with hypertension. Upon evaluation systolic blood pressures are in the 210s. She has been titrating down on her home medications previously as she thought her blood pressures were running too low. She does follow with cardiology. She is neurologically intact on exam. CT head was negative. EKG was on remarkable for any acute ischemia. CBC along with BMP and troponin was negative. INR was therapeutic and consequently PE was not explored. Patient was evaluated by cardiology. Patient was given IV labetalol and admitted to internal medicine with chest pain, headache and hypertension. Systolic BPs did trend down to the 160s upon admission. Medication Reconcilliation Current Medication List: was personally reviewed by me Blood Pressure Screening Patient's blood pressure: Elevated blood pressure Blood pressure disposition: Referred to PCP Consults Time Called: 1024 Consulting Physician: MITA Escamilla Returned Call: 1027 I reviewed the patient's case with MITA Escamilla. She will evaluate the patient for further management. Impression Primary Impression: Precordial chest pain Additional Impression: HTN (hypertension) Scribe Attestation The scribe's documentation has been prepared under my direction and personally reviewed by me in its entirety. I confirm that the note above accurately reflects all work, treatment, procedures, and medical decision making performed by me. Departure Information Dispostion Being Evaluated By Hospitalist (MITA Escamilla) Referrals Natasha Chavez M.D. (PCP) Patient Instructions My [facility] Problem Qualifiers Additional Impression: HTN (hypertension) Hypertension type: unspecified Qualified Codes: I10 - Essential (primary) hypertension
[2017-11-20] MEDS ORDERED: PANT1TAB3 PO (17:16)
[2017-11-20] MEDS ORDERED: MAGN400C2 PO (17:16)
[2017-11-20] MEDS: SOTALOL HCL 80 MG TAB PO SCH (20:48)
[2017-11-21] VITALS (7 sets, daily range): BP systolic 86–109; BP diastolic 54–72; PULSE 78–101; TEMP 36.4–36.6; O2SAT 95–97
[2017-11-21 06:19] LABS: HEMATOCRIT 43.9 % (37-47); HEMOGLOBIN 13.8 g/dL (12.0-16.0); MEAN CELL VOLUME 95.2 fL (80-100); MEAN CORPUSCULAR HEMOGLOBIN 29.9 pg (25-34); MEAN CORPUSCULAR HGB CONC 31.4 g/dl (32-36); MEAN PLATELET VOLUME 10.7 fL (7.4-10.4); PLATELET COUNT 274 K/uL (130-400); RED CELL DISTRIBUTION WIDTH CV 13.1 % (11.5-14.5); RED CELL DISTRIBUTION WIDTH SD 45.2 fL (36.4-46.3); WHITE BLOOD COUNT 7.14 K/uL (4.8-10.8)
[2017-11-21 06:29] LABS: INR 2.1 (0.9-1.1)
[2017-11-21 06:50] LABS: CALCIUM 9.3 mg/dl (8.5-10.1); CREATININE 1.28 mg/dl (0.60-1.20); POTASSIUM 4.5 mmol/L (3.5-5.1)
[2017-11-21] MEDS: SOTALOL HCL 80 MG TAB PO SCH ×2 (08:08→17:06)
[2017-11-21] MEDS ORDERED: SODIUM CHLORIDE 0.9% 500ML 500 ML IV SCH ×2 (08:30→11:00)
[2017-11-21] MEDS ORDERED: CHOLECALCIFEROL 1000 INTER.UNIT TAB PO SCH (09:00)
[2017-11-21] MEDS ORDERED: IRBESARTAN 150 MG TAB PO SCH (09:00)
[2017-11-21] MEDS ORDERED: MAGNESIUM OXIDE 400 MG TAB PO SCH (09:00)
[2017-11-21] MEDS ORDERED: CALCIUM 600MG + VIT D 400 IU TAB PO SCH (09:00)
[2017-11-21] MEDS ORDERED: NURSING VERBAL MED ORDER ONE ×2 (09:15→10:30)
--- NOTE | 2017-11-21 09:45 | Cardiology Follow-Up ---
Subjective Subjective Date of Service: Nov 21, 2017. Pt evaluation today including: conversation w/ patient, physical exam, chart review, lab review, review of studies, review of inpatient medication list Additional Details: Pt seen and examined, states that she feels fine this morning. A little tired from lack of sleep overnight. Denies cp, sob, palpitations, lightheadedness or dizziness. Tele reviewed: atrial fibrillation rates 90-100's Problem List Medical Problems: (1) HTN (hypertension) Status: Chronic (2) Precordial chest pain Status: Acute Review of Systems Respiratory: No see HPI, No cough, No sputum, No wheezing, No shortness of breath, No dyspnea on exertion, No dyspnea at rest, No hemoptysis, No problem reported Cardiac: No see HPI, No chest pain, No orthopnea, No PND, No edema, No claudication, No palpitations, No problem reported Objective Vital Signs Last Vital Signs Documentation Date Time Temp Pulse Resp B/P (MAP) Pulse Ox O2 Delivery O2 Flow Rate FiO2 11/21/17 08:00 Room Air 11/21/17 07:15 36.6 101 18 100/69 (79) 97 Physical Exam: General Appearance: WD/WN, no apparent distress Eyes: bilateral eyes normal inspection, bilateral eyes PERRL, bilateral eyes EOMI ENT: normal ENT inspection, hearing grossly normal, pharynx normal Neck: supple, no adenopathy, thyroid normal, no JVD, no carotid bruits, trachea midline Respiratory/Chest: chest non-tender, lungs clear, normal breath sounds, no respiratory distress, no accessory muscle use Cardiovascular: no edema, no JVD, no murmur, + irregularly irregular Abdomen: normal bowel sounds, non tender, soft, no organomegaly, no pulsatile mass Extremities: normal inspection, no pedal edema, no calf tenderness Neurologic/Psychiatric: rhinestone setter II-XII nml as tested, no motor/sensory deficits, alert, normal mood/affect, oriented x 3 Skin: normal color, warm/dry, no rash Lymphatic: no adenopathy Assessment and Plan 1. hypertensive urgency resolved bp now well controlled apparently patient was cutting 300mg tablets of irbesartan into quarters will resume 150mg po daily, pt has script at home f/u with pcp in 1-2 weeks 2. atrial fibrillation carries a hx of paf currently asymptomatic INR has been therapeutic dating back to September offered DC cardioversion discussed, risks benefits and alternatives pt states that she would not like to undergo cardioversion at this time, prefers to go home will cont sotalol and coumadin as directed by coumadin clinic my office will arrange f/u with me in 2-3 months ok to d/c to home from cardiac standpoint
--- NOTE | 2017-11-21 12:56 | Progress Note ---
Medicine Progress Note Date & Time of Visit: Nov 21, 2017 at 12:42. Subjective Pt was seen and examined Sitting in chair with no distress Pt said that she does not have any symptoms She does not want to get cardioverted She said that she feels fine She feels a little dizzy when her BP drops in the 80 systolic while she was sitting Denies any chest pain, palpitation and SOB Objective Last 8 Hrs Date Time Temp Pulse Resp B/P (MAP) Pulse Ox O2 Delivery O2 Flow Rate FiO2 11/21/17 11:56 36.5 90 20 100/67 (78) 95 Room Air 11/21/17 10:58 101/66 (78) 11/21/17 10:53 86/54 (65) 11/21/17 08:00 Room Air 11/21/17 07:15 36.6 101 18 100/69 (79) 97 Room Air Physical Exam: General- No acute distress Head- atraumatic Eyes- PERRL, EOMI ENT- oropharynx clear Neck- supple, no JVD Lungs- clear to auscultation Heart- irregular rhythm Abdomen- normal bowel sounds, soft Extremities no calf tenderness Neuro- alert, oriented x 3; PERRL, EOMI; no facial palsy Skin- warm & dry Laboratory Results: Last 24 Hours Test 11/20/17 15:23 11/20/17 21:28 11/21/17 06:02 Troponin I < 0.015 ng/ml < 0.015 ng/ml White Blood Count 7.14 K/uL Red Blood Count 4.61 M/uL Hemoglobin 13.8 g/dL Hematocrit 43.9 % Mean Corpuscular Volume 95.2 fL Mean Corpuscular Hemoglobin 29.9 pg Mean Corpuscular Hemoglobin Concent 31.4 g/dl RDW Standard Deviation 45.2 fL RDW Coefficient of Variation 13.1 % Platelet Count 274 K/uL Mean Platelet Volume 10.7 fL Prothrombin Time 21.5 SECONDS Prothromb Time International Ratio 2.1 Sodium Level 138 mmol/L Potassium Level 4.5 mmol/L Chloride Level 104 mmol/L Carbon Dioxide Level 30 mmol/L Anion Gap 4.0 mmol/L Blood Urea Nitrogen 19 mg/dl Creatinine 1.28 mg/dl Est Creatinine Clear Calc Drug Dose 43.1 ml/min Estimated GFR () 46.0 Estimated GFR (Non- 39.7 BUN/Creatinine Ratio 14.6 Random Glucose 97 mg/dl Calcium Level 9.3 mg/dl Assessment & Plan HYPERTENSIVE URGENCY BP on admission was 203/136 Present with headache and palpitations CT head negative Received labetalol 5 mg IV in the ED with improvement in BPs Cardiology on board Irbesartan decreased to 150mg Continue monitor BP closely ATRIAL FIBRILLATION WITH RVR Hx Paroxysmal Afib Rate control with sotalol Was planing to cardiovert this morning Pt did not want to proceed witrh cardioversion INR therapeutic Continue Coumadin Follow up with cardiology btw 2 to 3 weeks LEFT THYROID NODULE Doppler U/S showed 2.5 cm left thyroid nodule. Ultrasound-guided fine needle aspiration is recommended for further evaluation HISTORY OF DVT On Coumadin INR at goal CKD STAGE III Baseline creat runs in the mid ones Creat noted to be 1.2 today Continue to monitor Avoid nephrotoxic agents when able DVT PROPHYLAXIS Anticoagulated on Coumadin, INR 2.1 CODE STATUS FULL CODE DISPOSITION OK to discharge home today from cardiology standpoint Current Inpatient Medications: Current Inpatient Medications Medications (Trade) Dose Ordered Sig/Cristiano Route Start Time Stop Time Status Last Admin Dose Admin Acetaminophen (Tylenol Tab) 650 mg Q4H PRN PO 11/20/17 11:00 12/20/17 10:59 11/21/17 08:50 650 MG Cholecalciferol (Vitamin D Tab) 1,000 inter.unit DAILY PO 11/21/17 09:00 12/21/17 08:59 11/21/17 08:09 1,000 INTER.UNIT Irbesartan (Avapro Tab) 150 mg DAILY PO 11/21/17 09:00 12/21/17 08:59 11/21/17 08:09 150 MG Sotalol HCl (Betapace Tab) 80 mg BID17 PO 11/20/17 17:00 12/20/17 16:59 11/21/17 08:08 80 MG Tramadol HCl (Ultram Tab) 50 mg Q4 PRN PO 11/20/17 11:15 12/20/17 11:14 11/20/17 12:18 50 MG Warfarin Sodium (Coumadin Tab) 1.5 mg DAILY@1600 PO 11/20/17 16:00 12/20/17 15:59 11/20/17 16:19 1.5 MG Calcium/Vitamin D (Caltrate Plus Tab) 1 tab DAILY PO 11/21/17 09:00 12/21/17 08:59 Magnesium Oxide (Mag-Ox Tab) 400 mg DAILY PO 11/21/17 09:00 12/21/17 08:59 Miscellaneous (Iv Fluids Completed) 1 ea PRN PRN N/A 11/20/17 11:30 11/20/18 11:29 Promethazine HCl 12.5 mg/Sodium Chloride 50.5 ml @ 204 mls/hr Q6H PRN IV 11/20/17 12:00 12/20/17 11:59 Sodium Chloride 500 ml @ 60 mls/hr Q8H20M IV 11/21/17 11:00 11/21/17 19:19 11/21/17 12:09 60 MLS/HR
[2017-11-21] MEDS: WARFARIN SOD 0.5 MG TAB PO SCH (15:35)
[2017-11-21] MEDS ORDERED: AVP150 PO (16:55)
--- NOTE | 2017-11-21 17:06 | Discharge Instructions ---
Discharge Instructions Date of Service Nov 21, 2017. Admission Reason for Admission: Atrial Fibrillation Discharge Discharge Diagnosis / Problem: Hypertensive Urgency, Afib, Left Thyroid nodule Discharge Goals Goal(s): Decrease discomfort, Improve function, Improve disease control Activity Recommendations Activity Limitations: resume your previous activity (as tolerated) . Instructions / Follow-Up Instructions / Follow-Up Follow up with your primary care provider Dr. Chavez on 11/28 @ 11:45 am Follow up with cardiology Dr. Maldonado in 2 to 3 weeks (Cardiology will arrange for the follow up appointment) Continue follow up with the coumadin clinic (INR 2.1 today) Continue monitor INR (Coumadin clinic will contact you about your coumadin) Outpatient follow up for left thyroid nodule Consider Ultrasound-guided fine needle aspiration for further evaluation of the thyroid nodule (Your physician will arrange for that) Continue monitor blood pressure and bring your blood pressure log at your next appointment with your physician Please move slowly when you are going from a sitting to standing position to avoid falling. fall precaution Current Hospital Diet Patient's current hospital diet: AHA Diet (Heart Healthy) Discharge Diet Recommended Diet: AHA Diet (Heart Healthy) Pending Studies Studies pending at discharge: no Medical Emergencies . Who to Call and When: Medical Emergencies: If at any time you feel your situation is an emergency, please call 911 immediately. . Non-Emergent Contact Non-Emergency issues call your: Primary Care Provider, Credentialing Specialist Call Non-Emergent contact if: you have any medication questions . . "Provider Documentation" section prepared by Ciro Loera. .
--- NOTE | 2017-11-22 08:18 | Discharge Summary ---
Discharge Summary Date of Service Nov 22, 2017. Discharge Summary Admission Date: Nov 20, 2017 at 10:56 Discharge Date: Nov 21, 2017 Discharge Disposition: Home Principal Diagnosis: HYPERTENSIVE URGENCY Secondary Diagnoses/Problems: ATRIAL FIBRILLATION WITH RVR LEFT THYROID NODULE CKD STAGE III Hx DVT Procedures: BILATERAL CAROTID DOPPLER STUDY HISTORY: carotid bruit COMPARISON: None. TECHNIQUE: Real-time, grayscale, and color Doppler sonography of the carotid arteries was performed. Imaging reviewed in the transverse and longitudinal planes. All measurements were calculated based on NASCET criteria. FINDINGS: Antegrade flow is seen in the bilateral vertebral arteries. The brachial pressures are hemodynamically similar. Mild calcified plaque within the bilateral carotid bifurcations. The peak systolic velocity within the right ICA is 64 cm/s. The right systolic ratio is 0.5. The peak systolic velocity within the left ICA is 72 cm/s. The left systolic ratio is 0.7. There is a 2.5 cm predominantly solid left thyroid nodule. This may contain a few punctate calcifications. IMPRESSION: 1. No hemodynamically significant stenosis seen within the carotid arteries. 2. A 2.5 cm left thyroid nodule. Ultrasound-guided fine needle aspiration is recommended for further evaluation. 3. These findings were called/faxed to the referring physician's office. Electronically signed by: Reymundo Graham M.D. 11/20/2017 3:07 PM Dictated Date/Time: 11/20/2017 3:05 PM [~ rep ct add3]] SINGLE VIEW CHEST CLINICAL HISTORY: Atypical chest pain. FINDINGS: An AP, portable, upright chest radiograph is compared to study dated 04/11/2016 and correlated with chest CT dated 11/03/2013. The examination is degraded by portable technique and patient rotation. The heart is top normal for projection and there is atherosclerotic calcification of the thoracic aorta. The pulmonary vasculature is noncongested. Chronic interstitial thickening is similar to previous. No airspace consolidation or large pleural effusion is identified. No pneumothorax is seen. The skeletal structures are osteopenic. The bony thorax is grossly intact. IMPRESSION: No acute cardiopulmonary abnormality. Electronically signed by: Aleksander Hampton M.D. 11/20/2017 9:47 AM Dictated Date/Time: 11/20/2017 9:[address] SCAN OF THE BRAIN WITHOUT IV CONTRAST CLINICAL HISTORY: Headache. COMPARISON STUDY: CT of the brain dated 12/29/2015. TECHNIQUE: Unenhanced axial CT scan of the brain is performed from the vertex to the skull base. A dose lowering technique was utilized adhering to the principles of ALARA. CT DOSE: 638.56 mGycm FINDINGS: Brain parenchyma: There are age-related involutional changes noting mild subcortical and periventricular microangiopathic change. There is no hemorrhage, mass effect, or evidence of acute territorial ischemia by CT criteria. Dunn-white matter is preserved. No extra-axial fluid collection is seen. 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 Ventricles, sulci, cisterns: Prominent secondary to involutional change. Intracranial vasculature: There is atherosclerotic calcification of the cavernous carotid and vertebral arteries. Calvarium: Unremarkable. Sinuses and mastoids: Trace mucosal thickening is seen in the right maxillary antrum. The remaining visualized paranasal sinuses are clear. The mastoid air cells are well pneumatized. Orbits: The bony orbits are grossly intact. IMPRESSION: There is no hemorrhage, mass effect, or evidence of acute territorial ischemia by CT criteria. Electronically signed by: Aleksander Hampton M.D. 11/20/2017 10:06 AM Dictated Date/Time: 11/20/2017 10:04 AM ECHO Interpretation Summary * Name: TYSHAWN KEITH Study Date: 11/20/2017 01:06 PM BP: 176/100 mmHg * Patient Location: [facility]\\\\[id number] HR: 103 * : 1940 (M/d/yyyy) Gender: Female Height: 69 in * Age: 77 yrs Ethnicity: [place] Weight: 215 lb * Ordering Physician: Franko Maldonado * Referring Physician: Self, Referred * Performed By: Deloris Mercer RDCS * * Reason For Study: CHEST PAIN * BSA: 2.1 m2 * -- Conclusions -- * The left ventricle is normal in size. * There is mild concentric left ventricular hypertrophy. * The left ventricular wall motion is normal. * Left ventricular systolic function is normal. * Ejection Fraction = 60-65%. * The left atrium is moderately dilated. * Aortic valve sclerosis moderate, without significant aortic valvular stenosis. * There is trace mitral regurgitation. * There is mild to moderate tricuspid regurgitation. Procedure Details * A complete two-dimensional transthoracic echocardiogram was performed (2D, M- mode, Doppler and color flow Doppler). Left Ventricle * The left ventricle is normal in size. * There is mild concentric left ventricular hypertrophy. * Left ventricular systolic function is normal. * Ejection Fraction = 60-65%. * The left ventricular wall motion is normal. Right Ventricle * The right ventricle is normal in size and function. Atria * The left atrium is moderately dilated. * Right atrial size is normal. * No ASD detected; PFO is not assessed. Mitral Valve * The mitral valve anatomy is normal. * There is no mitral valve stenosis. * There is trace mitral regurgitation. Tricuspid Valve * The tricuspid valve anatomy is normal. * There is no tricuspid stenosis. * There is mild to moderate tricuspid regurgitation. * Doppler findings do not suggest pulmonary hypertension. Aortic Valve * The aortic valve is trileaflet. * Aortic valve sclerosis moderate, without significant aortic valvular stenosis. * No hemodynamically significant valvular aortic stenosis. * No aortic regurgitation is present. Pulmonic Valve * The pulmonic valve is not well visualized. * Pulmonic stenosis is absent. * Mild pulmonic valvular regurgitation. Great Vessels * The aortic root is normal size. Pericardium/Pleural * There is no pericardial effusion. Great Vessels * Normal inferior vena cava diameter and respiratory variation suggests normal central venous pressure. Consultations: cardio Medication Reconciliation New Medications: Irbesartan (Irbesartan) 150 Mg Tab 150 MG PO DAILY for 30 Days, #30 TAB Continued Medications: Acetaminophen (Tylenol) 500 Mg Tab 500 MG PO TID PRN for Pain, TAB Calcium Carbonate (Calcium) 600 Mg Tab 600 MG PO DAILY Cholecalciferol (Vitamin D) 1,000 Unit Tab 1 TAB PO DAILY Magnesium Oxide (Magnesium Oxide) 400 Mg Cap 1 CAP PO DAILY Pantoprazole (Protonix) 40 Mg Tab 1 TAB PO UD PRN for PRN, 3 Refills Prednisone (Prednisone) 2.5 Mg Tab 1 TAB PO DAILY PRN for Pain for 30 Days, #30 TAB 3 Refills Sotalol HCl (Sotalol HCl) 80 Mg Tab 80 MG PO BID17, #60 TAB 2 Refills Tramadol Hcl (Ultram) 50 Mg Tab 50 MG PO Q4 PRN for Pain, #100 Warfarin Sod (Jantoven) 3 Mg Tab 1.5 MG PO DAILY, TAB Discontinued Medications: Irbesartan (Irbesartan) 150 Mg Tab 75-150 MG PO DAILY PT TAKES A HALF TO A WHOLE TABLET DEPENDING HOW HIGH HER BLOOD PRESSURE IS Admission Information HPI (per Admitting provider): 77-year-old female who presents to the ED with headache and palpitations. Patient reports she started to not feel well yesterday with reports of generalized body aches and fatigue. She woke up at around 4:00 this morning and had a severe headache. She also felt as though she was in atrial fibrillation as she felt her heart racing. Patient attempted to take her blood pressure at home however the machine would not provide a reading. Over the past few months, patient reports she has been having troubles with her blood pressure dropping too low. She has been decreasing her irbesartan. She reports associated nausea this morning however denies vomiting, abdominal pain, diarrhea. She has chronic lightheadedness and dizziness which is unchanged baseline. No diaphoresis or syncopal events. She denies shortness of breath. No fevers or chills. She denies any urinary symptoms. In the ED, patient was found to be in atrial fibrillation with RVR with rates in the low 100s. She is also only significantly hypertensive with BP 203/136. She was given labetalol 10 mg IV with improvement in BPs. Cardiology was consulted by the ED Dr. Maldonado evaluated the patient at the bedside. Physical Exam (per Admitting): General Appearance: WD/WN, no apparent distress Head: normocephalic, atraumatic Eyes: normal inspection, EOMI, sclerae normal ENT: hearing grossly normal, + pertinent finding (Mucous membranes moist) Neck: supple, no JVD, trachea midline Respiratory/Chest: lungs clear, normal breath sounds, no respiratory distress Cardiovascular: no edema, normal peripheral pulses, + tachycardia (Heart rate in the low 100s), + irregularly irregular Abdomen/GI: normal bowel sounds, non tender, soft, no organomegaly Extremities/Musculoskelatal: normal inspection, no calf tenderness, normal capillary refill Neurologic/Psych: no motor/sensory deficits, alert, normal mood/affect, oriented x 3 Skin: normal color, warm/dry Hospital Course HYPERTENSIVE URGENCY BP on admission was 203/136 Present with headache and palpitations CT head negative Received labetalol 5 mg IV in the ED with improvement in BPs Cardiology on board Irbesartan decreased to 150mg Continue monitor BP closely ATRIAL FIBRILLATION WITH RVR Hx Paroxysmal Afib Rate control with sotalol Was planing to cardiovert this morning Pt did not want to proceed witrh cardioversion INR therapeutic Continue Coumadin Follow up with cardiology btw 2 to 3 weeks LEFT THYROID NODULE Doppler U/S showed 2.5 cm left thyroid nodule. Ultrasound-guided fine needle aspiration is recommended for further evaluation HISTORY OF DVT On Coumadin INR at goal CKD STAGE III Baseline creat runs in the mid ones Creat noted to be 1.2 today Continue to monitor Avoid nephrotoxic agents when able DVT PROPHYLAXIS Anticoagulated on Coumadin, INR 2.1 CODE STATUS FULL CODE DISPOSITION OK to discharge home today from cardiology standpoint Total time spent on discharge = 35 minutes This includes examination of the patient, discharge planning, medication reconciliation, and communication with other providers. Discharge Instructions Discharge Instructions Date of Service Nov 21, 2017. Admission Reason for Admission: Atrial Fibrillation Discharge Discharge Diagnosis / Problem: Hypertensive Urgency, Afib, Left Thyroid nodule Discharge Goals Goal(s): Decrease discomfort, Improve function, Improve disease control Activity Recommendations Activity Limitations: resume your previous activity (as tolerated) . Instructions / Follow-Up Instructions / Follow-Up Follow up with your primary care provider Dr. Chavez on 11/28 @ 11:45 am Follow up with cardiology Dr. Maldonado in 2 to 3 weeks (Cardiology will arrange for the follow up appointment) Continue follow up with the coumadin clinic (INR 2.1 today) Continue monitor INR (Coumadin clinic will contact you about your coumadin) Outpatient follow up for left thyroid nodule Consider Ultrasound-guided fine needle aspiration for further evaluation of the thyroid nodule (Your physician will arrange for that) Continue monitor blood pressure and bring your blood pressure log at your next appointment with your physician Please move slowly when you are going from a sitting to standing position to avoid falling. fall precaution Current Hospital Diet Patient's current hospital diet: AHA Diet (Heart Healthy) Discharge Diet Recommended Diet: AHA Diet (Heart Healthy) Pending Studies Studies pending at discharge: no Medical Emergencies . Who to Call and When: Medical Emergencies: If at any time you feel your situation is an emergency, please call 911 immediately. . Non-Emergent Contact Non-Emergency issues call your: Primary Care Provider, Truck Caterer Call Non-Emergent contact if: you have any medication questions . . "Provider Documentation" section prepared by Ciro Loera. . Additional Copies To Natasha Chavez M.D.
== END 2017-11-21 20:10 | disposition home or self-care (01) ==
LOC: C.EDB 09:16 → C.2T 10:56 → ENRESERV 11:17
PROVIDERS: ADMIT Internal Medicine; ATTEND Internal Medicine
DX: I12.9 Hypertensive chronic kidney disease with stage 1 through stage 4 chronic kidney disease, or unspecified chronic kidney disease (principal); I48.0 Paroxysmal atrial fibrillation; R91.1 Solitary pulmonary nodule; N18.3 Chronic kidney disease, stage 3 (moderate); Z86.718 Personal history of other venous thrombosis and embolism; Z79.899 Other long term (current) drug therapy; Z80.0 Family history of malignant neoplasm of digestive organs; Z88.0 Allergy status to penicillin; Z91.012 Allergy to eggs; Z79.01 Long term (current) use of anticoagulants

== ENCOUNTER 2019-11-25 11:09 | Observation (INO) ==
[2019-11-25] MEDS ORDERED: ASPIRIN CHEW 324 MG PO STA (11:34)
[2019-11-25] MEDS ORDERED: NITROGLYCERIN SL 0.4 MG/TAB TAB SL PRN (11:34)
--- NOTE | 2019-11-25 11:34 | Emergency Department Note ---
Impression & Plan Precordial chest pain, Paroxysmal a-fib, Subtherapeutic international normalized ratio (INR) ED Provider Note NAME: TYSHAWN KEITH AGE: 79 SEX: F : 1940 ARRIVES VIA: Walk-In INFORMANT: Patient ED PROVIDER(S): Shaan Gu DO CHIEF COMPLAINT: Chest pain HPI: Patient is a 79-year-old female with a past medical history of paroxysmal A. fib, hypertension, COPD who presents the ER for chest pain. Patient notes that she woke up this morning around 2 AM and noticed the chest heaviness in the mid sternum. Describes it as a 5 out of 10. No radiation. Admits to shortness of breath. She also notes that she feels her heart beating irregularly and feels as though she is in A. fib. She has had this multiple times before in the past. She is taking all of her medications. Denies any belly pain nausea vomiting diarrhea. No dysuria urgency or frequency. No swelling of her legs. No previous history of heart attacks. She has been taking her Coumadin. ROS: See above HPI for pertinent positives & negatives. A total of 10 systems reviewed and were otherwise negative. PAST MEDICAL HISTORY:See Below PAST SURGICAL HISTORY:See Below FAMILY HISTORY:See Below SOCIAL HISTORY:See Below HOME MEDICATIONS:See Below ALLERGIES:See Below VITALS:See Below PHYSICAL EXAMINATION: GENERAL: Sitting up in bed, alert, well appearing, well nourished, no distress, non-toxic EYE EXAM: normal conjunctiva. OROPHARYNX: no exudate, no erythema, lips, buccal mucosa, and tongue normal and mucous membranes are moist NECK: supple, no nuchal rigidity, no adenopathy, non-tender LUNGS: Clear to auscultation. Normal chest wall mechanics HEART: no murmurs, S1 normal and S2 normal ABDOMEN: abdomen soft, non-tender, normo-active bowel sounds, no masses, no rebound or guarding. BACK: Back is symmetrical on inspection and there is no deformity, no midline tenderness, no CVA tenderness. SKIN: no rashes and no bruising UPPER EXTREMITIES: upper extremities are grossly normal. LOWER EXTREMITIES: No pitting edema. Calves are equal bilateral NEURO EXAM: Normal sensorium, cranial nerves II-XII grossly intact, normal speech, no gross weakness of arms, no gross weakness of legs. MEDICAL DECISION MAKING: Patient is an 79-year-old female who presents the ER for chest pain which started at 2 AM this morning. IV was established blood work was obtained. She was referred in by her PCP as she was found to be in A. fib. Labs show no significant leukocytosis or anemia. INR slightly subtherapeutic at 1.8. BMP with a creatinine 1.3 otherwise unremarkable. Magnesium slightly low at 1.7. LFTs bilirubin were unremarkable. Troponin was negative. Lipase was unremarkable. Chest x-ray without any acute findings. EKG showed A. fib but no acute ischemia. She was given IV fluids. She was given IV dose of Lopressor. Heart rate trended down. She did feel better following the Lopressor, aspirin and nitroglycerin. She was discussed with the hospitalist for observation. Do favor symptoms are likely secondary to A. fib. Triage Nursing notes reviewed. Prior medical records reviewed Vital Signs: reviewed and remarkable for tachycardic Differential diagnosis: Differential diagnoses includes but is not limited to acute coronary syndrome, myocardial infarction, pericarditis, pulmonary embolus, aortic dissection, pneumonia, pneumothorax, musculoskeletal, shingles, esophageal. ER treatment provided: See below Diagnostics interpreted by me: ECG: A. fib rate 88 Normal axis No PVCs Poor baseline EKG performed at 1122 with 2 seconds Cardiac Monitoring: An order was placed for continuous cardiac monitoring. The monitor shows a rate of 88 with sinus rhythm. Laboratory studies: As stated above and show below. Imaging studies: Portable AP upright 1 view of the chest shows no focal infiltrate or pneumothorax Consultation(s): Mann with the hospitalist for further evaluation ED COURSE: Procedures: none Critical Care: None Past Med/Surg History Medical History (Updated 11/25/19 @ 17:00 by Shaan Gu DO) Asthma CHILDHOOD ONLY Basal cell carcinoma Cardiac murmur CKD (chronic kidney disease), stage III DVT (deep venous thrombosis) "MANY YEARS AGO" AFTER SURGERY Factor 5 Leiden mutation, heterozygous Fibromyalgia GERD (gastroesophageal reflux disease) HTN (hypertension) Osteoarthritis Paroxysmal a-fib Precordial chest pain Spinal stenosis Thyroid nodule BIOPSY NEGATIVE Surgical History H/O dilation and curettage H/O parathyroidectomy History of adenoidectomy History of cholecystectomy History of colonoscopy History of tonsillectomy History of tooth extraction Family History Father Family history of diabetes mellitus Sister Family hx of colon cancer Social History (Updated 11/25/19 @ 14:04 by Mihaela Mccray PA-C) Smoking Status: Never smoker Second Hand Exposure: No; Do You Dip or Chew Tobacco: No; Tobacco Cessation Education Requested by Patient: No Hx Alcohol Use: No Hx Substance Use: No Preferred Language: Tamazight Communication Ability: Effective Visual Impairment: No Limitations Business Development Professional Required: No Beliefs That Will Affect Care: None marital status: / Current Living Situation: Alone Other Information That Helps Us Care for You: No Feels Safe at Home: Yes Safety Concerns: Feels Safe At This Time Allergies Allergies Allergy/AdvReac Type Severity Reaction Status Date / Time nitrofurantoin Allergy Intermediate HIVES Verified 11/25/19 12:22 Penicillins Allergy Intermediate HIVES Verified 11/25/19 12:22 Egg Derived AdvReac Intermediate GI SYMPTOMS Verified 11/25/19 12:22 Home Meds Home Medications Medication Instructions Recorded Confirmed acetaminophen [Tylenol Extra 500 mg PO TID PRN 05/30/18 11/25/19 Strength] cholecalciferol (vitamin D3) 1,000 unit PO QAM 05/30/18 11/25/19 [Vitamin D3] pantoprazole [Protonix] 40 mg PO QAM PRN 05/30/18 11/25/19 sotalol 80 mg PO BID 05/30/18 11/25/19 tramadol [Ultram] 50 mg PO Q4H PRN 05/30/18 11/25/19 irbesartan [Avapro] 150 mg PO HS 07/07/18 11/25/19 prednisone 5 mg PO QAM 07/07/18 11/25/19 diltiazem HCl 120 mg PO HS 03/21/19 11/25/19 warfarin 1.5 mg PO SUTUWETHFRSA 11/25/19 11/25/19 warfarin 3 mg PO MO 11/25/19 11/25/19 Results & Data (ED) Vital Signs Vital Signs - 24 hr 11/25/19 11:12 11/25/19 11:26 11/25/19 11:34 Temperature 36.9 C Temperature Source Oral Pulse Rate 111 H 110 H 105 H Respiratory Rate 20 14 14 Blood Pressure 138/87 138/92 Blood Pressure Mean 104 116 Pulse Oximetry 96 Oxygen Delivery Method Room Air Sepsis Recent Fever Within 48 Hours No Sepsis New/Unexplained Change in Mental Status N/A Sepsis Action Taken by Nursing No Action Required 11/25/19 11:42 11/25/19 11:45 11/25/19 12:00 Temperature Temperature Source Pulse Rate 91 H 89 Respiratory Rate 18 16 Blood Pressure Blood Pressure Mean Pulse Oximetry 96 Oxygen Delivery Method Room Air Sepsis Recent Fever Within 48 Hours Sepsis New/Unexplained Change in Mental Status Sepsis Action Taken by Nursing 11/25/19 12:15 11/25/19 12:30 11/25/19 12:40 Temperature Temperature Source Pulse Rate 112 H 92 H 98 H Respiratory Rate 13 18 Blood Pressure 138/92 Blood Pressure Mean Pulse Oximetry Oxygen Delivery Method Sepsis Recent Fever Within 48 Hours Sepsis New/Unexplained Change in Mental Status Sepsis Action Taken by Nursing Laboratory Data Result diagrams: 11/25/19 11:25 11/25/19 11:25 Lab Results 11/25/19 11/25/19 11/25/19 Range/Units 11:25 11:25 11:25 WBC 9.16 (4.8-10.8) K/uL RBC 4.72 (4.2-5.4) M/uL Hgb 14.4 (12.0-16.0) g/dL Hct 44.9 (37-47) % MCV 95.1 (80-100) fL MCH 30.5 (25-34) pg MCHC 32.1 (32-36) g/dL RDW Std Deviation 45.4 (36.4-46.3) fL RDW Coeff of Deniz 13.1 (11.5-14.5) % Plt Count 320 (130-400) K/uL MPV 11.1 H (7.4-10.4) fL Immature Gran % (Auto) 0.9 % Neut % (Auto) 62.4 % Lymph % (Auto) 19.5 % Shannon % (Auto) 12.8 % Eos % (Auto) 3.2 % Baso % (Auto) 1.2 % Neut # (Auto) 5.72 (1.4-6.5) K/uL Lymph # (Auto) 1.79 (1.2-3.4) K/uL Shannon # (Auto) 1.17 H (0.11-0.59) K/uL Eos # (Auto) 0.29 (0-0.5) K/uL Baso # (Auto) 0.11 (0-0.2) K/uL Immature Gran # (Auto) 0.08 H (0.00-0.02) K/uL PT 18.8 H (9.0-12.0) Seconds INR 1.8 H (0.9-1.1) APTT 34.9 H (21.0-31.0) Seconds PTT Ratio 1.3 Sodium 139 (136-145) mmol/L Potassium 4.5 (3.5-5.1) mmol/L Chloride 106 (98-107) mmol/L Carbon Dioxide 27 (21-32) mmol/L Anion Gap 6.0 (3-11) BUN 17 (7-18) mg/dl Creatinine 1.30 H (0.6-1.2) mg/dl Est Cr Clr Drug Dosing 40.9 ml/min Est GFR ( Amer) 44.6 Est GFR (Non-Af Amer) 38.4 BUN/Creatinine Ratio 13.1 (10-20) Glucose 96 (70-99) mg/dl Calcium 9.7 (8.5-10.1) mg/dl Magnesium (1.8-2.4) mg/dl Total Bilirubin 0.6 (0.2-1) mg/dl AST 22 (15-37) U/L ALT 27 (12-78) U/L Alkaline Phosphatase 104 (45-117) U/L Troponin I < 0.015 (0-0.045) ng/ml Total Protein 7.8 (6.4-8.2) gm/dl Albumin 3.7 (3.4-5.0) gm/dl Globulin 4.1 H (2.5-4.0) gm/dl Albumin/Globulin Ratio 0.9 (0.9-2) Lipase 174 (73-393) U/L TSH (0.300-4.500) uIu/ml 11/25/19 Range/Units 11:25 WBC (4.8-10.8) K/uL RBC (4.2-5.4) M/uL Hgb (12.0-16.0) g/dL Hct (37-47) % MCV (80-100) fL MCH (25-34) pg MCHC (32-36) g/dL RDW Std Deviation (36.4-46.3) fL RDW Coeff of Deniz (11.5-14.5) % Plt Count (130-400) K/uL MPV (7.4-10.4) fL Immature Gran % (Auto) % Neut % (Auto) % Lymph % (Auto) % Shannon % (Auto) % Eos % (Auto) % Baso % (Auto) % Neut # (Auto) (1.4-6.5) K/uL Lymph # (Auto) (1.2-3.4) K/uL Shannon # (Auto) (0.11-0.59) K/uL Eos # (Auto) (0-0.5) K/uL Baso # (Auto) (0-0.2) K/uL Immature Gran # (Auto) (0.00-0.02) K/uL PT (9.0-12.0) Seconds INR (0.9-1.1) APTT (21.0-31.0) Seconds PTT Ratio Sodium (136-145) mmol/L Potassium (3.5-5.1) mmol/L Chloride (98-107) mmol/L Carbon Dioxide (21-32) mmol/L Anion Gap (3-11) BUN (7-18) mg/dl Creatinine (0.6-1.2) mg/dl Est Cr Clr Drug Dosing ml/min Est GFR ( Amer) Est GFR (Non-Af Amer) BUN/Creatinine Ratio (10-20) Glucose (70-99) mg/dl Calcium (8.5-10.1) mg/dl Magnesium 1.7 L (1.8-2.4) mg/dl Total Bilirubin (0.2-1) mg/dl AST (15-37) U/L ALT (12-78) U/L Alkaline Phosphatase (45-117) U/L Troponin I (0-0.045) ng/ml Total Protein (6.4-8.2) gm/dl Albumin (3.4-5.0) gm/dl Globulin (2.5-4.0) gm/dl Albumin/Globulin Ratio (0.9-2) Lipase (73-393) U/L TSH 2.990 (0.300-4.500) uIu/ml Administered Medications Magnesium Sulfate/Dextrose (Magnesium Sulfate / D5w) 1 gm in 100 mls @ 50 mls/hr IV Q2H GISSEL Stop: 11/25/19 19:29 Last Admin: 11/25/19 16:34 Dose: 50 mls/hr Documented by: [id number] Discontinued Medications Aspirin (Aspirin Chew 324 Mg) 324 mg PO NOW STA Stop: 11/25/19 11:35 Last Admin: 11/25/19 11:45 Dose: 324 mg Documented by: [id number] Metoprolol Tartrate (Metoprolol Tartrate 1 Mg/Ml Vial) 2.5 mg IV NOW STA Stop: 11/25/19 12:22 Last Admin: 11/25/19 12:40 Dose: 2.5 mg Documented by: [id number] Discharge Plan Visit Data Chief Complaint: Cardiac Assessment Stated Complaint: DR REBOLLEDO THINKS SHE IS HAVING HEART ATTACK ED Provider: Shaan Gu Discharge Problem: Precordial chest pain, Paroxysmal a-fib, Subtherapeutic international normalized ratio (INR) Patient Disposition: Admitted As Inpatient Discharge Instructions Interventions: ED Discharge Assessment Last Done: 11/25/19 14:11
[2019-11-25 11:46] LABS: Basophils # (auto) 0.11 K/uL (0-0.2); Basophils % (auto) 1.2 %; Eosinophils # (auto) 0.29 K/uL (0-0.5); Eosinophils % (auto) 3.2 %; Hematocrit (blood only) 44.9 % (37-47); Hemoglobin 14.4 g/dL (12.0-16.0); Immature Granulocytes # (auto) 0.08 K/uL (0.00-0.02); Immature Granulocytes % (auto) 0.9 %; Lymphocytes # (auto) 1.79 K/uL (1.2-3.4); Lymphocytes % (auto) 19.5 %; Mean Corpuscular Hemoglobin 30.5 pg (25-34); Mean Corpuscular Hgb Conc 32.1 g/dL (32-36); Mean Corpuscular Volume 95.1 fL (80-100); Mean Platelet Volume 11.1 fL (7.4-10.4); Monocytes # (auto) 1.17 K/uL (0.11-0.59); Monocytes % (auto) 12.8 %; Neutrophils # (auto) 5.72 K/uL (1.4-6.5); Neutrophils % (auto) 62.4 %; Platelet Count 320 K/uL (130-400); RDW Coefficient of Variation 13.1 % (11.5-14.5); RDW Standard Deviation 45.4 fL (36.4-46.3); Red Blood Count 4.72 M/uL (4.2-5.4); White Blood Count 9.16 K/uL (4.8-10.8)
--- NOTE | 2019-11-25 11:48 | XRay Report ---
XR chest 1V portable CLINICAL HISTORY: Atypical chest pain COMPARISON STUDY: 03/21/2019 FINDINGS: The cardiac and mediastinal contours are normal. There is no evidence of focal pulmonary co nsolidation. There is no evidence of failure. No pleural effusions are visualized.[ IMPRESSION: No active disease in the chest. ACT 112: Negative or not required by law. Electronically signed by: Valente Gallagher M.D. 11/25/2019 11:46 AM
[2019-11-25 11:57] LABS: INR 1.8 (0.9-1.1); Partial Thromboplastin Ratio 1.3; Partial Thromboplastin Time 34.9 Seconds (21.0-31.0); Prothrombin Time 18.8 Seconds (9.0-12.0)
[2019-11-25 12:14] LABS: Alanine Aminotransferase 27 U/L (12-78); Albumin Level 3.7 gm/dl (3.4-5.0); Aspartate Aminotransferase 22 U/L (15-37); BUN Creatinine Ratio 13.1 (10-20); Blood Urea Nitrogen 17 mg/dl (7-18); Calcium 9.7 mg/dl (8.5-10.1); Carbon Dioxide 27 mmol/L (21-32); Chloride 106 mmol/L (98-107); Creatinine Clr Calc Pharmacy 40.9 ml/min; Est GFR (African American) 44.6; Est GFR (Non-African American) 38.4; Glucose 96 mg/dl (70-99); Potassium 4.5 mmol/L (3.5-5.1); Sodium 139 mmol/L (136-145)
[2019-11-25 12:19] LABS: Albumin Globulin Ratio 0.9 (0.9-2); Alkaline Phosphatase 104 U/L (45-117); Bilirubin,Total 0.6 mg/dl (0.2-1); Globulin 4.1 gm/dl (2.5-4.0); Lipase 174 U/L (73-393); Total Protein 7.8 gm/dl (6.4-8.2); Troponin I < 0.015 ng/ml (0-0.045)
[2019-11-25] MEDS ORDERED: METOPROLOL TARTRATE 1 MG/ML VIAL IV STA (12:21)
--- NOTE | 2019-11-25 12:39 | Electrocardiogram Report ---
Test Reason : Blood Pressure : / mmHG Vent. Rate : 093 BPM Atrial Rate : 197 BPM P-R Int : 000 ms QRS Dur : 072 ms QT Int : 338 ms P-R-T Axes : 000 008 008 degrees QTc Int : 420 ms Poor data quality, interpretation may be adversely affected Atrial fibrillation Abnormal ECG When compared with ECG of 25-NOV-2019 11:22, (unconfirmed) No significant change was found Confirmed by Gal Medrano ([id number]) on 11/25/2019 12:39:24 PM Referred By: ED Confirmed By:Gal Medrano
--- NOTE | 2019-11-25 13:44 | History & Physical Report ---
Date of Service November 25, 2019 Assessment & Plan (1) Paroxysmal a-fib: This is a 79-year-old female with significant past medical history of paroxysmal A. fib anticoagulated on warfarin, history of DVT and factor V Leiden deficiency, HTN, CKD stage III, MGUS, osteoarthritis and chronic suppressive therapy follows rheumatology presents to ED secondary to chest pressure since 2 AM. In ED patient remained hemodynamically stable but was in atrial fib with RVR. She received 2.5 mg of IV metoprolol and heart rates were ranging from high 90s to low 100s. CBC and CMP were generally unremarkable, creatinine 1.3. Her INR was 1.8. Chest x-ray revealed no acute cardiopulmonary disease. admit to PCU cardiology consulted Discussed with cardiology Dr. Paula who recommends increasing sotalol to 120mg BID continue diltiazem continue warfarin, give 3mg orally tonight, and resume 1.5mg tomorrow (home regimen 3mg saturday and 1.5mg all other days, has been therapeutic since August) Per cardiology do not administer IV heparin due to pt c/o headache goal INR 2-3 mag 1.7, replace, otherwise electrolytes acceptable (2) Headache: pt c/o SIN for past 2 weeks, occipital/R temporal region no visual change (other than cataract/hearing/balance/other neuro issues) Obtain CT head due to being on warfarin monitor (3) Hypomagnesemia: mag 1.7 give magnesium sulfate 1g x 2 repeat in a.m. (4) HTN (hypertension): blood pressure stable continue avapro, diltiazem (5) CKD (chronic kidney disease), stage III: baseline Cr 1.3 bun/cr stable monitor (6) Factor 5 Leiden mutation, heterozygous: hx of DVT continue warfarin goal INR 2-3 (7) GERD (gastroesophageal reflux disease): continue PPI (8) Osteoarthritis: on chronic low dose prednisone, tramadol follows Dr. Bruce (9) MGUS (monoclonal gammopathy of unknown significance): Follows Dr. De Jesus heme/onc (10) DVT prophylaxis: continue warfarin Disposition: admit to tele Follow up: PCP Dr. De Jesus upon discharge Pt was seen and examined in collaboration with Dr. Chávez, please see addendum History of Present Illness Chief Complaint: Chest pressure since 2am. Primary Care Provider: Mónica De Jesus This is a 79-year-old female with significant past medical history of paroxysmal A. fib anticoagulated on warfarin, history of DVT and factor V Leiden deficiency, HTN, CKD stage III, MGUS, osteoarthritis and chronic suppressive therapy follows rheumatology presents to ED secondary to chest pressure since 2 AM. She was seen and evaluated at PCP office today secondary to headache x2 weeks, chest pressure and increased fatigue. She was referred to ED secondary to being in atrial fibrillation. She notes over the past 2 weeks she has felt unwell. She can mostly tell when she goes in and out of A. fib, but does note on occasion when she has been at the doctor's office EKG revealed A. fib but she was otherwise asymptomatic. She complains of increased fatigue, LEDESMA, palpitations and chest pressure with exertion. She ambulates with a cane but is very active including gardening. Over the past 2 weeks even with bending over in the garden she became dizzy and had to sit down. Symptoms would resolve with rest. She further complains of headache and right temporal and occipital region for the past 2 weeks. Headaches occur daily, worse in the morning, waxes and wanes in severity, currently 3/10, but earlier was 8/10. She takes [id number] APAP with mild relief. She complains of visual changes secondary to cataracts but otherwise denies any blurry vision, double vision, change in hearing, dizziness, vertigo, syncope. She further denies any recent illness, URI, cough, nausea, vomiting, abdominal pain, diarrhea, change in bowel or urinary habits. Her appetite is otherwise been stable and she denies any weight gain or loss. Son is at bedside. Prior history of hospitalization with atrial fibrillation approximately 1 year ago. Currently denies chest pain, SOB, orthopnea, and PND. She is been compliant with her current medication regimen including sotalol, diltiazem and warfarin. In ED patient remained hemodynamically stable but was in atrial fib with RVR. She received 2.5 mg of IV metoprolol and heart rates were ranging from high 90s to low 100s. CBC and CMP were generally unremarkable, creatinine 1.3. Her INR was 1.8. Chest x-ray revealed no acute cardiopulmonary disease. Allergies Allergy/AdvReac Type Severity Reaction Status Date / Time nitrofurantoin Allergy Intermediate HIVES Verified 11/25/19 12:22 Penicillins Allergy Intermediate HIVES Verified 11/25/19 12:22 Egg Derived AdvReac Intermediate GI SYMPTOMS Verified 11/25/19 12:22 Home Medications Home Medications Medication Instructions Recorded Confirmed Type acetaminophen [Tylenol Extra 500 mg PO TID PRN 05/30/18 11/25/19 History Strength] cholecalciferol (vitamin D3) 1,000 unit PO QAM 05/30/18 11/25/19 History [Vitamin D3] pantoprazole [Protonix] 40 mg PO QAM PRN 05/30/18 11/25/19 History sotalol 80 mg PO BID 05/30/18 11/25/19 History tramadol [Ultram] 50 mg PO Q4H PRN 05/30/18 11/25/19 History irbesartan [Avapro] 150 mg PO HS 07/07/18 11/25/19 History prednisone 5 mg PO QAM 07/07/18 11/25/19 History diltiazem HCl 120 mg PO HS 03/21/19 11/25/19 History warfarin 1.5 mg PO SUTUWETHFRSA 11/25/19 11/25/19 History warfarin 3 mg PO MO 11/25/19 11/25/19 History Past Med/Surg History Medical History (Updated 11/25/19 @ 17:00 by Shaan Gu DO) Asthma CHILDHOOD ONLY Basal cell carcinoma Cardiac murmur CKD (chronic kidney disease), stage III DVT (deep venous thrombosis) "MANY YEARS AGO" AFTER SURGERY Factor 5 Leiden mutation, heterozygous Fibromyalgia GERD (gastroesophageal reflux disease) HTN (hypertension) Osteoarthritis Paroxysmal a-fib Precordial chest pain Spinal stenosis Thyroid nodule BIOPSY NEGATIVE Surgical History H/O dilation and curettage H/O parathyroidectomy History of adenoidectomy History of cholecystectomy History of colonoscopy History of tonsillectomy History of tooth extraction Family History Father Family history of diabetes mellitus Sister Family hx of colon cancer Social History (Updated 11/25/19 @ 14:04 by Mihaela Mccray PA-C) Smoking Status: Never smoker Second Hand Exposure: No; Do You Dip or Chew Tobacco: No; Tobacco Cessation Education Requested by Patient: No Hx Alcohol Use: No Hx Substance Use: No Preferred Language: Amharic Communication Ability: Effective Visual Impairment: No Limitations Commercial Director Required: No Beliefs That Will Affect Care: None marital status: / Current Living Situation: Alone Other Information That Helps Us Care for You: No Feels Safe at Home: Yes Safety Concerns: Feels Safe At This Time Review of Systems Review of Systems: All systems reviewed & are unremarkable except as noted in HPI & below Physical Exam Physical Exam: Constitutional: WD/WN, female, vitals as above, NAD, sitting up in bed, pleasant, conversing easily Head: Normocephalic, Atraumatic Eyes: PERRL, conjunctivae normal, anicteric sclerae ENMT: external ear and nose normal, oropharynx normal Neck: trachea midline, no thyromegaly normal visual inspection Respiratory: normal respiratory effort, lungs clear to auscultation, no wheeze, rales, rhonchi. Normal insp/exp effort, no accessory muscle use Cardiovascular: IRR/IRR, no murmur, no edema, b/l varicosities noted Vessels: no JVD or carotid bruit Chest: normal inspection of chest Abdomen: normal bowel sounds, soft, nontender, no hepatosplenomegaly Musculoskeletal: no cyanosis or clubbing, extremities motor strength 5/5 Skin: no rashes, warm and dry normal turgor Neurologic: PERRL, EOMI, accommodation nl, no face palsy, no dysarthria CN's II-XI intact bilaterally and moves all extremities Psychiatric: A+Ox3, euthymic affect Lymphatic: no cervical or axillary lymphadenopathy : deferred Results & Data Results & Data ([facility]) Vital Signs (Past 12 Hours) Vital Signs Temp Pulse Resp BP Pulse Ox 11/25/19 12:40 98 H 138/92 11/25/19 12:30 92 H 18 11/25/19 12:15 112 H 13 11/25/19 12:00 89 16 11/25/19 11:45 91 H 18 11/25/19 11:42 96 11/25/19 11:34 105 H 14 11/25/19 11:26 110 H 14 138/92 11/25/19 11:12 36.9 C 111 H 20 138/87 96 Laboratory Results Discontinued Medications Aspirin (Aspirin Chew 324 Mg) 324 mg PO NOW STA Stop: 11/25/19 11:35 Last Admin: 11/25/19 11:45 Dose: 324 mg Documented by: [id number] Metoprolol Tartrate (Metoprolol Tartrate 1 Mg/Ml Vial) 2.5 mg IV NOW STA Stop: 11/25/19 12:22 Last Admin: 11/25/19 12:40 Dose: 2.5 mg Documented by: [id number] Diagnostic Findings CXR: IMPRESSION: No active disease in the chest. Medications Administered Discontinued Medications Aspirin (Aspirin Chew 324 Mg) 324 mg PO NOW STA Stop: 11/25/19 11:35 Last Admin: 11/25/19 11:45 Dose: 324 mg Documented by: [id number] Metoprolol Tartrate (Metoprolol Tartrate 1 Mg/Ml Vial) 2.5 mg IV NOW STA Stop: 11/25/19 12:22 Last Admin: 11/25/19 12:40 Dose: 2.5 mg Documented by: [id number] ECG Rate (beats per minute): 93 Rhythm: atrial fibrillation Code Status & VTE Plan Code Status Full Code VTE Prophylaxis Plan VTE Prophylaxis will be ordered: Yes Supervising Physician Co-Signing Physician Notes I have seen and examined the patient and have discussed the case with the provider above. I agree with the assessment and plan as stated. 79 yo F with h /o PAF who reports symptoms of chest pressure and SOB with palpitations when she has severe afib episodes, reports awakening with that chest pressure in her central chest at 0200 this morning. She reports she had no chest pain but did feel a pressure that she has felt previously with episodes of afib. She reports her chest pain resolved soon after having the aspirin today. She doesn't feel short of breath. She still has a headache on her right lateral face over her right eye and right temporal space. She reports this headache being present off an on for the last 3 weeks. She has had Mohs surgery close to the eye which required an oculoplastic surgeon 6 weeks ago. She also reports more fatigue during the day and started by speaking about not being able to do her gardening like she used to; for example she would need to come in and rest intermittently. She also reports feeling fatigued and not well rested in the morning along with am headaches upon awakening. She was encouraged to consider a sleep study as outpatient. On physical exam she is oriented and in NAD. She has normal respiratory effort and lungs are clear throughout. Cardiac exam revealed an irregular rate and rhythm consistent with atrial fibrillation. She has no peripheral edema. She has no abdominal tenderness and no gross neurologic deficit. CN 2-12 are normal. Strength and sensation appear intact throughout. Cardiology consultation with recommendations to give warfarin 3mg now with INR 2.8, and increase her sotalol and diltiazem overnight. She will likely undergo a DCCV tomorrow unless she converts overnight. Head CT revealed no acute intracranial abnormality and this was shared with her. Around 1800 she converted spontaneously to sinus rhythm. Railroad Mechanic notified. Jenni Chávez DO [facility]
[2019-11-25 14:16] LABS: Magnesium 1.7 mg/dl (1.8-2.4); Thyroid Stimulating Hormone 2.99 uIu/ml (0.300-4.500)
[2019-11-25] MEDS ORDERED: ONDANSETRON INJ 2 MG/ML 2 ML VIAL IV PRN (15:08)
[2019-11-25] MEDS ORDERED: MAGNESIUM HYDROXIDE SUSP 30 ML UDC PO PRN (15:08)
[2019-11-25] MEDS ORDERED: TRAMADOL HCL 50 MG TABLET PO PRN (15:08)
[2019-11-25] MEDS ORDERED: ACETAMINOPHEN 325 MG TAB PO PRN (15:08)
[2019-11-25] MEDS ORDERED: PANTOprazole 40 MG TAB PO PRN (15:08)
[2019-11-25] MEDS ORDERED: POLYETHYLENE (MIRALAX) 17 GM PACK PO PRN (15:08)
[2019-11-25] MEDS ORDERED: ALUMINUM/MAGNESIUM SUSP 30 ML UDC PO PRN (15:08)
--- NOTE | 2019-11-25 15:43 | CT Scan Report ---
HEAD CT NONCONTRAST CT DOSE: 537.48 mGy.cm HISTORY: headache TECHNIQUE: Multiaxial CT images of the head were performed without the use of intravenous contrast. A utomated exposure control was utilized for this study. A dose lowering technique was utilized adheri ng to the principles of ALARA. Comparison: Head CT 11/20/2017. Findings: The paranasal sinuses and mastoid air cells are clear. The calvarium and skull base are int act. There is no mass, hematoma, midline shift, acute infarct. White matter hypodensity is nonspecifi c but suggestive of microvascular ischemic change. The ventricles and sulci demonstrate mild age-rela sandy involutional changes. Impression: No significant change compared to the prior study. No acute intracranial abnormality. ACT 112: Negative or not required by law. Electronically signed by: Reymundo Graham M.D. 11/25/2019 3:42 PM
--- NOTE | 2019-11-25 15:52 | Cardiology Consultation ---
Date of Consultation November 25, 2019 Assessment & Plan (1) Paroxysmal a-fib: 79-year-old female with known paroxysmal atrial fibrillation on chronic antiarrhythmic therapy with sotalol and anticoagulants with warfarin was evaluated today for symptoms of weakness fatigue and headache with persistent headache x3 weeks. Patient found to be in atrial fibrillation with mildly elevated ventricular response rates Plan: Proceed with evaluation of headache as ordered Continue oral anticoagulation with warfarin Will increase sotalol to 120 mg twice per day beginning today and reassess in a.m. Renal insufficiency may limit ongoing use at this dose. If patient remains in atrial fibrillation consider synchronized electrical cardioversion possibly with MILADY guidance. Patient will be kept n.p.o. after midnight (2) Headache: CT scan pending (3) HTN (hypertension): Continue Avapro. Will hold diltiazem this evening (4) Factor 5 Leiden mutation, heterozygous: On anticoagulation with warfarin History of Present Illness Reason for Consultation: Atrial fibrillation, paroxysmal with acute lapse Requesting Physician: Dr. Chávez Attending Physician: Jenni Chávez, DO History of Present Illness Patient is an 79-year-old female with underlying issues as noted below 1.Paroxysmal atrial fibrillation on chronic sotalol and Coumadin therapy. 2.Factor V Leiden deficiency on chronic Coumadin therapy. 3.History of DVT. 4.Hypertension. 5.Osteoporosis. 6.Stage III chronic kidney disease. Patient presents now noting approximately 2-3 weeks of malaise generalized exertional fatigue and headache as well as a sense of heart pounding harder at least over the past 24 hours. Patient sought evaluation through primary care today predominantly due to complaints of headache but noted symptoms of heart fluttering and pounding in chest as well. Found at the time of evaluation to be in atrial fibrillation with mildly elevated ventricular response rate, 100 bpm. Blood pressures per patient has been felt to be elevated at times. Has been taking medications as prescribed. No specific chest pressure pain but does note dyspnea on exertion. Notes no dizziness lightness syncope near syncope notes no fevers chills or unexplained infections notes no acute weight loss or gain. Has chronic sleep disruption. Notes no cough hoarseness wheeze or hemoptysis notes no bleeding issues melena medication dysuria hematuria. Notes no acute neurologic complaints other than generalized fatigue Allergies Allergy/AdvReac Type Severity Reaction Status Date / Time nitrofurantoin Allergy Intermediate HIVES Verified 11/25/19 12:22 Penicillins Allergy Intermediate HIVES Verified 11/25/19 12:22 Egg Derived AdvReac Intermediate GI SYMPTOMS Verified 11/25/19 12:22 Home Medications Home Medications Medication Instructions Recorded Confirmed Type acetaminophen [Tylenol Extra 500 mg PO TID PRN 05/30/18 11/25/19 History Strength] cholecalciferol (vitamin D3) 1,000 unit PO QAM 05/30/18 11/25/19 History [Vitamin D3] pantoprazole [Protonix] 40 mg PO QAM PRN 05/30/18 11/25/19 History sotalol 80 mg PO BID 05/30/18 11/25/19 History tramadol [Ultram] 50 mg PO Q4H PRN 05/30/18 11/25/19 History irbesartan [Avapro] 150 mg PO HS 07/07/18 11/25/19 History prednisone 5 mg PO QAM 07/07/18 11/25/19 History diltiazem HCl 120 mg PO HS 03/21/19 11/25/19 History warfarin 1.5 mg PO SUTUWETHFRSA 11/25/19 11/25/19 History warfarin 3 mg PO MO 11/25/19 11/25/19 History Patient History Medical History (Updated 11/25/19 @ 14:29 by Mihaela Mccray PA-C) Asthma CHILDHOOD ONLY Basal cell carcinoma Cardiac murmur CKD (chronic kidney disease), stage III DVT (deep venous thrombosis) "MANY YEARS AGO" AFTER SURGERY Factor 5 Leiden mutation, heterozygous Fibromyalgia GERD (gastroesophageal reflux disease) HTN (hypertension) Osteoarthritis Paroxysmal a-fib Precordial chest pain Spinal stenosis Thyroid nodule BIOPSY NEGATIVE Surgical History H/O dilation and curettage H/O parathyroidectomy History of adenoidectomy History of cholecystectomy History of colonoscopy History of tonsillectomy History of tooth extraction Family History Father Family history of diabetes mellitus Sister Family hx of colon cancer Social History (Updated 11/25/19 @ 14:04 by Mihaela Mccray PA-C) Smoking Status: Never smoker Second Hand Exposure: No; Do You Dip or Chew Tobacco: No; Tobacco Cessation Education Requested by Patient: No Hx Alcohol Use: No Hx Substance Use: No Preferred Language: Nepali Communication Ability: Effective Visual Impairment: No Limitations Audiology Director Required: No Beliefs That Will Affect Care: None marital status: / Current Living Situation: Alone Other Information That Helps Us Care for You: No Feels Safe at Home: Yes Safety Concerns: Feels Safe At This Time Results & Data ([facility]) Vital Signs (Past 12 Hours) Vital Signs Temp Pulse Resp BP Pulse Ox 11/25/19 12:40 98 H 138/92 11/25/19 12:30 92 H 18 11/25/19 12:15 112 H 13 11/25/19 12:00 89 16 11/25/19 11:45 91 H 18 11/25/19 11:42 96 11/25/19 11:34 105 H 14 11/25/19 11:26 110 H 14 138/92 11/25/19 11:12 36.9 C 111 H 20 138/87 96 Laboratory Results Laboratory Results - last 24 hr 11/25/19 11/25/19 11/25/19 11:25 11:25 11:25 WBC 9.16 RBC 4.72 Hgb 14.4 Hct 44.9 MCV 95.1 MCH 30.5 MCHC 32.1 RDW Std Deviation 45.4 RDW Coeff of Deniz 13.1 Plt Count 320 MPV 11.1 H Immature Gran % (Auto) 0.9 Neut % (Auto) 62.4 Lymph % (Auto) 19.5 Barber % (Auto) 12.8 Eos % (Auto) 3.2 Baso % (Auto) 1.2 Neut # (Auto) 5.72 Lymph # (Auto) 1.79 Barber # (Auto) 1.17 H Eos # (Auto) 0.29 Baso # (Auto) 0.11 Immature Gran # (Auto) 0.08 H PT 18.8 H INR 1.8 H APTT 34.9 H PTT Ratio 1.3 Sodium 139 Potassium 4.5 Chloride 106 Carbon Dioxide 27 Anion Gap 6.0 BUN 17 Creatinine 1.30 H Est Cr Clr Drug Dosing 40.9 Est GFR ( Amer) 44.6 Est GFR (Non-Af Amer) 38.4 BUN/Creatinine Ratio 13.1 Glucose 96 Calcium 9.7 Magnesium Total Bilirubin 0.6 AST 22 ALT 27 Alkaline Phosphatase 104 Troponin I < 0.015 Total Protein 7.8 Albumin 3.7 Globulin 4.1 H Albumin/Globulin Ratio 0.9 Lipase 174 TSH 11/25/19 11:25 WBC RBC Hgb Hct MCV MCH MCHC RDW Std Deviation RDW Coeff of Deniz Plt Count MPV Immature Gran % (Auto) Neut % (Auto) Lymph % (Auto) Barber % (Auto) Eos % (Auto) Baso % (Auto) Neut # (Auto) Lymph # (Auto) Barber # (Auto) Eos # (Auto) Baso # (Auto) Immature Gran # (Auto) PT INR APTT PTT Ratio Sodium Potassium Chloride Carbon Dioxide Anion Gap BUN Creatinine Est Cr Clr Drug Dosing Est GFR ( Amer) Est GFR (Non-Af Amer) BUN/Creatinine Ratio Glucose Calcium Magnesium 1.7 L Total Bilirubin AST ALT Alkaline Phosphatase Troponin I Total Protein Albumin Globulin Albumin/Globulin Ratio Lipase TSH 2.990 Diagnostic Findings Echocardiogram 04/06/2019: The left ventricular cavity size is normal. The LV wall thickness is normal. The left ventricular wall motion is normal. The qualitative LV ejection fraction is 55-59% (normal). Left atrial enlargement suggests diastolic left ventricular dysfunction. The left atrium is mildly enlarged. The aortic valve is mildly calcified. The aortic valve leaflets open normally. Aortic stenosis is absent. Mild tricuspid regurgitation is present.
[2019-11-25] MEDS ORDERED: WARFARIN SOD 3 MG TAB PO SCH (16:00)
[2019-11-25] MEDS ORDERED: ACETAMINOPHEN 500 MG TAB PO ONE (16:14)
[2019-11-25] MEDS: MAGNESIUM SULFATE / D5W 1 GM/100 ML BAG IV SCH ×2 (16:34→18:25)
[2019-11-25] MEDS: SOTALOL HCL 80 MG TAB PO SCH (20:56)
[2019-11-25] MEDS ORDERED: dilTIAZem HCL 120 MG CAPCR PO SCH (21:00)
[2019-11-25] MEDS ORDERED: Nursing to Pharmacy Communication SCH (21:00)
[2019-11-25] MEDS ORDERED: IRBESARTAN 150 MG TAB PO SCH (21:00)
[2019-11-26 05:51] LABS: Hematocrit (blood only) 37.8 % (37-47); Hemoglobin 12.2 g/dL (12.0-16.0); Mean Corpuscular Hemoglobin 30.6 pg (25-34); Mean Corpuscular Hgb Conc 32.3 g/dL (32-36); Mean Corpuscular Volume 94.7 fL (80-100); Mean Platelet Volume 10.6 fL (7.4-10.4); Platelet Count 222 K/uL (130-400); RDW Coefficient of Variation 13.1 % (11.5-14.5); RDW Standard Deviation 45.9 fL (36.4-46.3); Red Blood Count 3.99 M/uL (4.2-5.4); White Blood Count 7.08 K/uL (4.8-10.8)
[2019-11-26 05:59] LABS: INR 2.3 (0.9-1.1); Prothrombin Time 23.2 Seconds (9.0-12.0)
[2019-11-26 06:15] LABS: BUN Creatinine Ratio 17.5 (10-20); Calcium 8.9 mg/dl (8.5-10.1); Creatinine Clr Calc Pharmacy 39.6 ml/min; Est GFR (Non-African American) 37.1; Magnesium 2.2 mg/dl (1.8-2.4); Potassium 4.3 mmol/L (3.5-5.1)
[2019-11-26] MEDS ORDERED: CHOLECALCIFEROL 1,000 UNITS 25 MCG TAB PO SCH (09:00)
[2019-11-26] MEDS ORDERED: predniSONE 5 MG TAB PO SCH (09:00)
[2019-11-26] MEDS: SOTALOL HCL 80 MG TAB PO SCH (11:31)
--- NOTE | 2019-11-26 12:49 | Cardiology Progress Note ---
Date of Service November 26, 2019 Assessment & Plan (1) Paroxysmal a-fib: 79-year-old female with known paroxysmal atrial fibrillation on chronic antiarrhythmic therapy with sotalol and anticoagulants with warfarin was evaluated today for symptoms of weakness fatigue and headache with persistent headache x3 weeks. Patient found to be in atrial fibrillation with mildly elevated ventricular response rates Plan: Patient had spontaneous conversion to sinus rhythm last evening. Would discharged home on sotalol 120 mg a.m. 80 mg every afternoon continue anticoagulation with warfarin Patient has already scheduled appointment with cardiology next week will need repeat EKG at that time (2) Headache: No acute findings on CT scan (3) HTN (hypertension): Currently not hypertensive will hold Avapro and diltiazem on discharge with close clinical follow-up as scheduled (4) Factor 5 Leiden mutation, heterozygous: On anticoagulation with warfarin Admission and Anticipated Discharge Date Admission Date: November 25, 2019 Subjective Patient seen and examined, chart, medications, telemetry reviewed. Patient spontaneously converted to sinus rhythm last night no additional rhythm Low-grade headache this morning no acute cardiac complaints. Blood pressure still running slightly on the low side Physical Exam Constitutional: WD/WN, vitals as above + obese Eyes: PERRL, conjunctivae normal, anicteric sclerae ENMT: external ear and nose normal, oropharynx normal Neck: trachea midline, no thyromegaly Respiratory: normal respiratory effort, lungs clear to auscultation Cardiovascular: Rate/Rhythm: regular rate and regular rhythm Heart Sounds: normal S1 and normal S2; no gallop and no murmur Palpation: normal PMI Vessels: normal carotid upstroke and radial pulses present; no JVD and no carotid bruit Extremities: no edema Gastrointestinal (Abdomen): normal bowel sounds, soft, nontender, no hepatosplenomegaly Musculoskeletal: no cyanosis or clubbing, extremities motor strength 5/5 Skin: no rashes, warm and dry Neurologic: PERRL, EOMI, accommodation nl, no face palsy, no dysarthria Psychiatric: A+Ox3, euthymic affect Results & Data ([facility]) Vital Signs (Past 12 Hours) Vital Signs Temp Pulse Pulse Resp BP Pulse Ox 11/26/19 11:50 36.7 C 58 L 18 99/58 L 97 11/26/19 10:08 51 L 11/26/19 07:58 36.5 C 48 L 18 122/69 95 11/26/19 04:01 36.6 C 54 L 16 123/70 98 Laboratory Results Laboratory Results - last 24 hr 11/25/19 11/25/19 11/25/19 11:25 16:08 21:48 WBC RBC Hgb Hct MCV MCH MCHC RDW Std Deviation RDW Coeff of Deniz Plt Count MPV PT INR Sodium Potassium Chloride Carbon Dioxide Anion Gap BUN Creatinine Est Cr Clr Drug Dosing Est GFR ( Amer) Est GFR (Non-Af Amer) BUN/Creatinine Ratio Glucose Calcium Magnesium 1.7 L Troponin I < 0.015 < 0.015 TSH 2.990 11/26/19 11/26/19 11/26/19 05:37 05:37 05:37 WBC 7.08 RBC 3.99 L Hgb 12.2 Hct 37.8 MCV 94.7 MCH 30.6 MCHC 32.3 RDW Std Deviation 45.9 RDW Coeff of Deniz 13.1 Plt Count 222 MPV 10.6 H PT 23.2 H INR 2.3 H Sodium 140 Potassium 4.3 Chloride 107 Carbon Dioxide 29 Anion Gap 4.0 BUN 23 H Creatinine 1.34 H Est Cr Clr Drug Dosing 39.6 Est GFR ( Amer) 43.0 Est GFR (Non-Af Amer) 37.1 BUN/Creatinine Ratio 17.5 Glucose 90 Calcium 8.9 Magnesium 2.2 Troponin I TSH
--- NOTE | 2019-11-26 13:14 | Hospitalist Progress Note ---
Date of Service November 26, 2019 Assessment & Plan (1) Paroxysmal a-fib: This is a 79-year-old female with significant past medical history of paroxysmal A. fib anticoagulated on warfarin, history of DVT and factor V Leiden deficiency, HTN, CKD stage III, MGUS, osteoarthritis and chronic suppressive therapy follows rheumatology presents to ED secondary to chest pressure since 2 AM. Noted to have A. fib with RVR Received 1 dose of metoprolol IV in ER and her sotalol was increased to 120 t wice daily Appreciate cardiology input and recommendation Has been feeling a lot better since admission Reverted to sinus rhythm with a heart rate upper 50s Ambulating in the room without any difficulties Will be discharged home this afternoon (2) Headache: pt c/o SIN for past 2 weeks, occipital/R temporal region no visual change (other than cataract/hearing/balance/other neuro issues) Obtain CT head -unremarkable We will give Tylenol for headache Reasonable this afternoon (3) Hypomagnesemia: mag 1.7 give magnesium sulfate 1g x 2 Magnesium level is normalized (4) HTN (hypertension): Blood pressure has been running low She has not been getting any Avapro and/or diltiazem We will hold both medications on discharge She will be followed up in PCPs office on Saturday (5) CKD (chronic kidney disease), stage III: baseline Cr 1.3 bun/cr stable monitor-creatinine remains minimally elevated at 1.34 (6) Factor 5 Leiden mutation, heterozygous: hx of DVT continue warfarin goal INR 2-3 (7) GERD (gastroesophageal reflux disease): continue PPI (8) Osteoarthritis: on chronic low dose prednisone, tramadol follows Dr. Bruce (9) MGUS (monoclonal gammopathy of unknown significance): Follows Dr. De Jesus heme/onc (10) DVT prophylaxis: continue warfarin Disposition: admit to tele Follow up: PCP Dr. De Jesus upon discharge Admission and Anticipated Discharge Date Admission Date: November 25, 2019 Subjective 11/26/2019 The patient was seen and examined in telemetry unit She has a history approximately fibrillation and was admitted yesterday with 3 weeks history of weakness and noted to have A. fib with RVR He has been feeling a lot better since this morning and she is reverted to sinus rhythm Denies any other symptoms and wants to go home Review of Systems Review of Systems: All systems reviewed and are unremarkable except as noted below Constitutional: + weakness Cardiovascular: no chest pain, no palpitations and no lightheadedness Physical Exam Physical Exam: Sitting on a chair without any acute distress Constitutional: well developed and well nourished; no acute distress and not ill appearing Eyes: PERRL, conjunctivae normal, anicteric sclerae ENMT: external ear and nose normal, oropharynx normal Neck: trachea midline, no thyromegaly Respiratory: normal respiratory effort; no respiratory distress Auscultat ion: lungs clear to auscultation bilaterally Cardiovascular: Rate/Rhythm: regular rate and regular rhythm Heart Sounds: no murmur Gastrointestinal (Abdomen): Inspection/Auscultation: abdomen normal to inspection and normal bowel sounds; abdomen not distended Percussion/Palpation: abdomen soft; abdomen nontender Musculoskeletal: No acute arthritis involving any joints Neurologic: moves all extremities; no focal motor deficits Lymphatic: no cervical or axillary lymphadenopathy Results & Data Results & Data ([facility]) Vital Signs (Past 12 Hours) Vital Signs Temp Pulse Pulse Resp BP Pulse Ox 11/26/19 11:50 36.7 C 58 L 18 99/58 L 97 11/26/19 10:08 51 L 11/26/19 07:58 36.5 C 48 L 18 122/69 95 11/26/19 04:01 36.6 C 54 L 16 123/70 98 Laboratory Results Short CBC 11/26/19 Range/Units 05:37 WBC 7.08 (4.8-10.8) K/uL Hgb 12.2 (12.0-16.0) g/dL Hct 37.8 (37-47) % Plt Count 222 (130-400) K/uL BMP 11/26/19 05:37 Sodium 140 Potassium 4.3 Chloride 107 Carbon Dioxide 29 BUN 23 H Creatinine 1.34 H Glucose 90 Calcium 8.9 Cardiac Enzymes 11/25/19 11/25/19 Range/Units 16:08 21:48 Troponin I < 0.015 < 0.015 (0-0.045) ng/ml Medications Administered Current Inpatient Medications Acetaminophen (Acetaminophen 325 Mg Tab) 650 mg PO Q4H PRN PRN Reason: Pain or Fever Stop: 12/25/19 15:07 Al Hydrox/Mg Hydrox/Simethicone (Aluminum/Magnesium Susp 30 Ml Udc) 15 ml PO Q4H PRN PRN Reason: Dyspepsia Stop: 12/25/19 15:07 Irbesartan (Irbesartan 150 Mg Tab) 150 mg PO HS [facility] Stop: 12/25/19 20:59 Magnesium Hydroxide (Magnesium Hydroxide Susp 30 Ml Udc) 30 ml PO Q12H PRN PRN Reason: Constipation Stop: 12/25/19 15:07 Ondansetron HCl (Ondansetron Inj 2 Mg/Ml 2 Ml Vial) 4 mg IV Q6H PRN PRN Reason: Nausea Stop: 12/25/19 15:07 Pantoprazole Sodium (Pantoprazole 40 Mg Tab) 40 mg PO QAM PRN PRN Reason: Acid Reflux Stop: 12/25/19 15:07 Last Admin: 11/26/19 11:32 Dose: 40 mg Documented by: Polyethylene Glycol (Polyethylene (Miralax) 17 Gm Pack) 17 gm PO DAILY PRN PRN Reason: Constipation Stop: 12/25/19 15:07 Prednisone (Prednisone 5 Mg Tab) 5 mg PO QAM [facility] Stop: 12/26/19 08:59 Last Admin: 11/26/19 11:31 Dose: 5 mg Documented by: Sotalol HCl (Sotalol Hcl 80 Mg Tab) 120 mg PO BID [facility] Stop: 12/25/19 20:59 Last Admin: 11/26/19 11:31 Dose: 120 mg Documented by: Tramadol HCl (Tramadol Hcl 50 Mg Tablet) 50 mg PO Q4H PRN PRN Reason: Pain Stop: 12/25/19 15:07 Vitamin D (Cholecalciferol 1,000 Units 25 Mcg Tab) 1,000 units PO QAM [facility] Stop: 12/26/19 08:59 Last Admin: 11/26/19 11:32 Dose: 1,000 units Documented by: Warfarin Sodium (Warfarin Sod 1 Mg Tab) 1 mg PO [email or web address] [facility] Stop: 12/26/19 15:59 Warfarin Sodium (Warfarin Sod 0.5 Mg Tab) 0.5 mg PO [email or web address] [facility] Stop: 12/26/19 15:59
[2019-11-26] MEDS ORDERED: WARFARIN SOD 1 MG TAB PO SCH ×2 (16:00)
[2019-11-26] MEDS ORDERED: WARFARIN SOD 0.5 MG TAB PO SCH (16:00)
--- NOTE | 2019-11-27 05:12 | Electrocardiogram Report ---
Test Reason : Blood Pressure : / mmHG Vent. Rate : 058 BPM Atrial Rate : 058 BPM P-R Int : 204 ms QRS Dur : 094 ms QT Int : 410 ms P-R-T Axes : 078 012 043 degrees QTc Int : 402 ms Sinus bradycardia Cannot rule out Anterior infarct (cited on or before 25-NOV-2019) Abnormal ECG When compared with ECG of 25-NOV-2019 11:22, Sinus rhythm has replaced Atrial fibrillation Vent. rate has decreased BY 35 BPM Confirmed by Kobi Valencia ([id number]) on 11/27/2019 5:11:43 AM Referred By: REFERRED SELF Confirmed By:Kobi Valencia
--- NOTE | 2019-11-27 05:25 | Electrocardiogram Report ---
Test Reason : Blood Pressure : / mmHG Vent. Rate : 051 BPM Atrial Rate : 051 BPM P-R Int : 210 ms QRS Dur : 090 ms QT Int : 452 ms P-R-T Axes : 078 051 061 degrees QTc Int : 416 ms Sinus bradycardia with 1st degree A-V block Cannot rule out Anterior infarct (cited on or before 25-NOV-2019) Abnormal ECG When compared with ECG of 25-NOV-2019 17:36, No significant change was found Confirmed by Kobi Valencia ([id number]) on 11/27/2019 5:24:59 AM Referred By: REFERRED SELF Confirmed By:Kobi Valencia
--- NOTE | 2019-11-27 08:39 | Discharge Summary ---
Date of Service November 27, 2019 Admission HPI Per Admitting Provider This is a 79-year-old female with significant past medical history of paroxysmal A. fib anticoagulated on warfarin, history of DVT and factor V Leiden deficiency, HTN, CKD stage III, MGUS, osteoarthritis and chronic suppressive therapy follows rheumatology presents to ED secondary to chest pressure since 2 AM. She was seen and evaluated at PCP office today secondary to headache x2 weeks, chest pressure and increased fatigue. She was referred to ED secondary to being in atrial fibrillation. She notes over the past 2 weeks she has felt unwell. She can mostly tell when she goes in and out of A. fib, but does note on occasion when she has been at the doctor's office EKG revealed A. fib but she was otherwise asymptomatic. She complains of increased fatigue, LEDESMA, palpitations and chest pressure with exertion. She ambulates with a cane but is very active including gardening. Over the past 2 weeks even with bending over in the garden she became dizzy and had to sit down. Symptoms would resolve with rest. She further complains of headache and right temporal and occipital region for the past 2 weeks. Headaches occur daily, worse in the morning, waxes and wanes in severity, currently 3/10, but earlier was 8/10. She takes [id number] APAP with mild relief. She complains of visual changes secondary to cataracts but otherwise denies any blurry vision, double vision, change in hearing, dizziness, vertigo, syncope. She further denies any recent illness, URI, cough, nausea, vomiting, abdominal pain, diarrhea, change in bowel or urinary habits. Her appetite is otherwise been stable and she denies any weight gain or loss. Son is at bedside. Prior history of hospitalization with atrial fibrillation approximately 1 year ago. Currently denies chest pain, SOB, orthopnea, and PND. She is been compliant with her current medication regimen including sotalol, diltiazem and warfarin. In ED patient remained hemodynamically stable but was in atrial fib with RVR. She received 2.5 mg of IV metoprolol and heart rates were ranging from high 90s to low 100s. CBC and CMP were generally unremarkable, creatinine 1.3. Her INR was 1.8. Chest x-ray revealed no acute cardiopulmonary disease. Admission Exam Per Admitting Provider Physical Exam: Constitutional: WD/WN, female, vitals as above, NAD, sitting up in bed, pleasant, conversing easily Head: Normocephalic, Atraumatic Eyes: PERRL, conjunctivae normal, anicteric sclerae ENMT: external ear and nose normal, oropharynx normal Neck: trachea midline, no thyromegaly normal visual inspection Respiratory: normal respiratory effort, lungs clear to auscultation, no wheeze, rales, rhonchi. Normal insp/exp effort, no accessory muscle use Cardiovascular: IRR/IRR, no murmur, no edema, b/l varicosities noted Vessels: no JVD or carotid bruit Chest: normal inspection of chest Abdomen: normal bowel sounds, soft, nontender, no hepatosplenomegaly Musculoskeletal: no cyanosis or clubbing, extremities motor strength 5/5 Skin: no rashes, warm and dry normal turgor Neurologic: PERRL, EOMI, accommodation nl, no face palsy, no dysarthria CN's II-XI intact bilaterally and moves all extremities Psychiatric: A+Ox3, euthymic affect Lymphatic: no cervical or axillary lymphadenopathy : deferred Principal Diagnosis Paroxysmal atrial fibrillation, A. fib with RVRreverted to sinus rhythm, hypertension Discharge Exam Constitutional well developed and well nourished; no acute distress and not ill appearing Eyes PERRL, conjunctivae normal, anicteric sclerae ENMT external ear and nose normal, oropharynx normal Neck trachea midline, no thyromegaly Respiratory normal respiratory effort; no respiratory distress Auscultation: lungs clear to auscultation bilaterally Cardiovascular Rate/Rhythm: regular rate and regular rhythm Heart Sounds: no murmur Gastrointestinal (Abdomen) Inspection/Auscultation: abdomen normal to inspection and normal bowel sounds; abdomen not distended Percussion/Palpation: abdomen soft; abdomen nontender Neurologic moves all extremities; no focal motor deficits Lymphatic no cervical or axillary lymphadenopathy Discharge Data Allergies Allergy/AdvReac Type Severity Reaction Status Date / Time nitrofurantoin Allergy Intermediate HIVES Verified 11/25/19 12:22 Penicillins Allergy Intermediate HIVES Verified 11/25/19 12:22 Egg Derived AdvReac Intermediate GI SYMPTOMS Verified 11/25/19 12:22 Consultations 11/25/19 13:30 ED Decision to Admit Stat 11/25/19 13:42 Consult Cardiology Routine Ordered Studies 11/25/19 13:35 CT head/brain wo con Stat Hospital Course (1) Paroxysmal a-fib: This is a 79-year-old female with significant past medical history of paroxysmal A. fib anticoagulated on warfarin, history of DVT and factor V Leiden deficiency, HTN, CKD stage III, MGUS, osteoarthritis and chronic suppressive therapy follows rheumatology presents to ED secondary to chest pressure since 2 AM. Noted to have A. fib with RVR Received 1 dose of metoprolol IV in ER and her sotalol was increased to 120 twice daily Appreciate cardiology input and recommendation Has been feeling a lot better since admission Reverted to sinus rhythm with a heart rate upper 50s Ambulating in the room without any difficulties Will be discharged home this afternoon (2) Headache: pt c/o SIN for past 2 weeks, occipital/R temporal region no visual change (other than cataract/hearing/balance/other neuro issues) Obtain CT head -unremarkable We will give Tylenol for headache Reasonable this afternoon (3) Hypomagnesemia: mag 1.7 give magnesium sulfate 1g x 2 Magnesium level is normalized (4) HTN (hypertension): Blood pressure has been running low She has not been getting any Avapro and/or diltiazem We will hold both medications on discharge She will be followed up in PCPs office on Saturday (5) CKD (chronic kidney disease), stage III: baseline Cr 1.3 bun/cr stable monitor-creatinine remains minimally elevated at 1.34 (6) Factor 5 Leiden mutation, heterozygous: hx of DVT continue warfarin goal INR 2-3 (7) GERD (gastroesophageal reflux disease): continue PPI (8) Osteoarthritis: on chronic low dose prednisone, tramadol follows Dr. Bruce (9) MGUS (monoclonal gammopathy of unknown significance): Follows Dr. De Jesus heme/onc (10) DVT prophylaxis: continue warfarin Disposition: admit to tele Follow up: PCP Dr. De Jesus upon discharge Total Time Total Time Spent Total Time Spent (In Minutes): 40 minutes Total Time Includes: Examination of the Patient, Discharge Planning, Medication Reconciliation and Communication With Other Providers Discharge Plan Discharge Items Patient Disposition: Home - Self-Care Reason For Visit: AFIB Discharge Diagnosis: Paroxysmal atrial fibrillation, A. fib with RVRreverted to sinus rhythm, hypertension Condition on Discharge: Good Activity: Resume your previous activity Non-emergency contact: Primary Care Provider Call non-emergency contact if: you have any medication questions Follow-up/Referrals: Berkley De Jesus M.D. [Primary Care Provider] - 11/30/19 10:20 am (Date & Time 11/30/2019 10:20 AM Provider Hillary Royal MD Department General Internal Medicine [facility] ) Diet: Heart Healthy Addtl Attending Provider Instructions: Please take it easy for the next few days For headache try Tylenol and do not use any NSAID (Ibuprofen,naproxen,Aspirin etc) The doses of your sotalol have been changed: You should be taking, 120 mg in the morning and 80 mg at night. Avapro and diltiazem have been discontinued for low blood pressure These medications will be adjusted accordingly during her follow-ups with PCP and director insurance. Please have regular follow-up with coagulation clinic Pending Studies at Discharge: No Stand-Alone Forms: [facility], Smoking Cessation Medications and DC Order Prescriptions: New sotalol 80 mg Tablet 120 mg PO DAILY 30 Days Qty: 45 RF: 0 Continued prednisone 5 mg Tablet 5 mg PO QAM RF: 0 warfarin 3 mg tablet 1.5 mg PO [id number] RF: 0 warfarin 3 mg Tablet 3 mg PO MO RF: 0 tramadol [Ultram] 50 mg Tablet 50 mg PO Q4H PRN (Reason: Pain) RF: 0 acetaminophen [Tylenol Extra Strength] 500 mg Tablet 500 mg PO TID PRN (Reason: Pain) RF: 0 pantoprazole [Protonix] 40 mg Tablet,Delayed Release (Dr/Ec) 40 mg PO QAM PRN (Reason: Acid Reflux) RF: 0 cholecalciferol (vitamin D3) [Vitamin D3] 1,000 unit Capsule 1,000 unit PO QAM RF: 0 Changed sotalol 80 mg Tablet 80 mg PO PM Qty: 0 RF: 0 Discontinued irbesartan [Avapro] 150 mg Tablet 150 mg PO HS RF: 0 diltiazem HCl 120 mg Capsule,Ext.Rel 24h Degradable 120 mg PO HS RF: 0 Discharge Orders: Discharge Order (Routine); Ordered 11/26/19 Ordered By: Leah Martin Admission Data Admit Date/Time: 11/25/19 13:38 Attending Provider: Leah Martin Admit Provider: Jenni Chávez Primary Care Provider: Berkley De Jesus Other Providers: Blue Paula ; Jenni Chávez Other Interventions: Discharge Summary Assessment (RN) Last Done: 11/26/19 13:47
== END 2019-11-26 14:39 | disposition home or self-care (01) ==
LOC: ED 11:09 → 2S 11:09 → SUATTDRO 13:38 → 2S 14:11

== ENCOUNTER 2022-09-26 16:45 | Inpatient (IN) ==
--- NOTE | 2022-09-26 17:26 | Emergency Department Note ---
History of Present Illness General Chief complaint: Illness Stated complaint: HTN, LOW GRADE FEVER,CHEST PAIN,CHILLS Time Seen by Provider: 09/26/22 16:55 History of Present Illness Maximum Pain Intensity: 8 82-year-old female presents emergency department with complaint of general malaise shaking chills rigors muscle aches and a slight cough that started earlier today. Patient checked her temperature it was 100.6. Patient denies any hemoptysis she states difficulty at times with urination. Patient denies nausea vomiting diarrhea. Patient denies sick contacts. Patient has no other complaints. There are no other mitigating or alleviating factors Home Medications Medication Instructions Recorded Confirmed Type amlodipine 5 mg tablet 5 mg PO BID 01/18/20 09/26/22 History aspirin 81 mg tablet,delayed 81 mg PO HS 01/18/20 09/26/22 History release (Annel Low Dose Aspirin) amiodarone 200 mg tablet 200 mg PO HS 05/11/20 09/26/22 History apixaban 2.5 mg tablet (Eliquis) 2.5 mg PO BID 09/26/22 09/26/22 History chlorthalidone 25 mg tablet 12.5 mg PO DAILY 09/26/22 09/26/22 History cholecalciferol (vitamin D3) 25 25 mcg PO HS 09/26/22 09/26/22 History mcg (1,000 unit) tablet (Vitamin D3) escitalopram oxalate 5 mg tablet 5 mg PO QAM 09/26/22 09/26/22 History (Lexapro) metoprolol tartrate 25 mg tablet 25 mg PO BID 09/26/22 09/26/22 History prednisone 5 mg tablet 5 mg PO DAILY 09/26/22 09/26/22 History valsartan 160 mg tablet 160 mg PO AMHS 09/26/22 09/26/22 History Allergies Allergy/AdvReac Type Severity Reaction Status Date / Time nitrofurantoin Allergy Intermediate HIVES Verified 09/26/22 19:38 Penicillins Allergy Intermediate HIVES Verified 09/26/22 19:38 Egg Derived AdvReac Intermediate GI SYMPTOMS Verified 09/26/22 19:38 Past Med/Surg History Medical History Anemia Asthma CHILDHOOD ONLY Atrial fibrillation with controlled ventricular rate Basal cell carcinoma Bronchitis Cardiac murmur CKD (chronic kidney disease), stage III DVT (deep venous thrombosis) "MANY YEARS AGO" AFTER SURGERY Encounter for pre-operative examination Factor 5 Leiden mutation, heterozygous Fibromyalgia GERD (gastroesophageal reflux disease) HTN (hypertension) Hx of blood clots Osteoarthritis Paroxysmal a-fib Precordial chest pain Spinal stenosis Subtherapeutic international normalized ratio (INR) Supratherapeutic INR Thyroid nodule BIOPSY NEGATIVE Surgical History H/O dilation and curettage H/O parathyroidectomy History of adenoidectomy History of cholecystectomy History of colonoscopy History of tonsillectomy History of tooth extraction Family History Father Family history of diabetes mellitus Diabetes Stroke Sister Family hx of colon cancer Cancer Colorectal cancer Heart disease Mother Cancer Daughter Breast cancer Other Hypertension Social History Smoking Status: Never smoker Second Hand Exposure: No; Do You Dip or Chew Tobacco: No; Hx Alcohol Use: No Hx Substance Use: No Preferred Language: Chilean Communication Ability: Effective Visual Impairment: No Limitations Radiation Officer Required: No Beliefs That Will Affect Care: None marital status: / Current Living Situation: Alone current occupational status: retired Feels Safe at Home: Yes Assistive Devices: None Review of Systems A total of 10 systems reviewed and were otherwise negative Constitutional: + fever and + chills Respiratory: + cough Genitourinary (Female): + dysuria Physical Exam Vital Signs Vital Signs - 24 hr 09/26/22 16:51 09/26/22 17:56 09/26/22 18:04 Temperature 37.2 C Temperature Source Temporal Artery Scan Pulse Rate 75 70 69 Pulse Rate [Apical] Pulse Rate from SpO2 Sensor Respiratory Rate 20 17 Respiratory Effort / Characteristics Non-Labored Spontaneous Respiratory Depth Normal Blood Pressure 198/64 H Blood Pressure [Right Arm] Blood Pressure Mean 108 Blood Pressure Mean [Right Arm] Blood Pressure Position [Right Arm] Pulse Oximetry 92 92 Oxygen Delivery Method Room Air Room Air Sepsis Recent Fever Within 48 Hours No Sepsis New/Unexplained Change in Mental Status No Sepsis Action Taken by Nursing No Action Required 09/26/22 18:39 09/26/22 19:00 09/26/22 20:22 Temperature 37.8 C H Temperature Source Oral Pulse Rate 68 Pulse Rate [Apical] 68 70 Pulse Rate from SpO2 Sensor 68 Respiratory Rate 17 20 19 Respiratory Effort / Characteristics Non-Labored Spontaneous Respiratory Depth Normal Blood Pressure 148/85 H Blood Pressure [Right Arm] 181/85 H 179/85 H Blood Pressure Mean 106 Blood Pressure Mean [Right Arm] 117 116 Blood Pressure Position [Right Arm] Sitting Sitting Pulse Oximetry 91 93 93 Oxygen Delivery Method Room Air Room Air Room Air Sepsis Recent Fever Within 48 Hours Sepsis New/Unexplained Change in Mental Status Sepsis Action Taken by Nursing GENERAL: Patient is awake alert in no acute distress patient is resting comfortably and showing no signs of anxiety EYES: The conjunctivae are clear. The pupils are round and reactive. EARS, NOSE, MOUTH AND THROAT: The nose is without any evidence of any deformity. Mucous membranes are moist. Tongue is midline. NECK: The neck is nontender and supple. RESPIRATORY: Normal respiratory effort is noted there is no evidence of wheezing rhonchi or rales CARDIOVASCULAR: Regular rate and rhythm noted there no murmurs rubs or gallops normal S1 normal S2. GASTROINTESTINAL: The abdomen is soft. Abdomen is nontender. BACK: Full range of motion MUSCULOSKELETAL/EXTREMITIES: There is no evidence of gross deformity full range of motion is noted in the hips and shoulders. SKIN: There is no obvious evidence of any rash. There are no petechiae, pallor or cyanosis noted. NEUROLOGIC: Patient is awake alert and oriented x3 strength is symmetric Course Reevaluation(s) Reevaluation #1: Patient on repeat examination complains of some chest pressure and a mild headache. A repeat EKG was ordered. I did discuss the evaluation with the patient the patient's daughter at bedside. Time: 20:24 Consultations Consultation #1: Spoke with the [facility] hospitalist Dr. Rodriguez who accepts the patient for adm ission Time: 20:24 Administered Medications Magnesium Sulfate/Dextrose (Magnesium Sulfate / D5w) 1 gm in 100 mls @ 50 mls/hr IV ONE ONE Stop: 09/26/22 22:29 Last Admin: 09/26/22 20:38 Dose: 50 mls/hr Documented By: QGV Discontinued Medications Acetaminophen (Acetaminophen 500 Mg Tab) 1,000 mg PO NOW STA Stop: 09/26/22 19:21 Last Admin: 09/26/22 19:27 Dose: 1,000 mg Documented By: QGV Medical Decision Making Medical Records Attestation: I reviewed the patient's medical records. Home Medications Current Medication List: was personally reviewed by me Laboratory Data Attestation: I reviewed the patient's lab results. Lab work interpreted by me is unremarkable, patient has no signs of sepsis, the patient's troponin is normal 09/26/22 17:25 09/26/22 17:25 Lab Results 09/26/22 09/26/22 09/26/22 Range/Units 17:25 17:25 17:25 WBC 6.20 (4.8-10.8) K/ul RBC 3.87 L (4.20-5.40) M/uL Hgb 11.7 L (12.0-16.0) g/dl Hct 35.5 L (37.0-47.0) % MCV 91.7 (80.0-100.0) fL MCH 30.2 (25.0-34.0) pg MCHC 33.0 (32.0-36.0) g/dL RDW Std Deviation 41.7 (36.4-46.3) fL RDW Coeff of Deniz 12.6 (11.5-14.5) % Plt Count 178 (130-400) K/uL MPV 10.6 (9.4-12.4) fL Immature Gran % (Auto) 1.5 % Neut % (Auto) 81.7 % Lymph % (Auto) 7.7 % Door % (Auto) 7.7 % Eos % (Auto) 0.6 % Baso % (Auto) 0.8 % Neut # (Auto) 5.06 (1.40-6.50) K/uL Lymph # (Auto) 0.48 L (1.2-3.4) K/uL Door # (Auto) 0.48 (0.11-0.59) K/uL Eos # (Auto) 0.04 (0-0.50) K/uL Baso # (Auto) 0.05 (0-0.2) K/uL Immature Gran # (Auto) 0.09 (0.01-0.20) K/uL PT 11.7 (9.0-12.0) Seconds INR 1.1 (0.9-1.1) APTT 26.6 (21.0-31.0) Seconds PTT Ratio 0.9 Sodium 133 L (136-145) mmol/L Potassium 4.5 (3.5-5.1) mmol/L Chloride 100 (98-107) mmol/L Carbon Dioxide 25 (21-32) mmol/L Anion Gap 8 (3-11) BUN 19 (6-23) mg/dl Creatinine 1.25 H (0.6-1.2) mg/dl Est Cr Clr Drug Dosing 39.8 ml/min Est GFR ( Amer) 45.7 ml/min Est GFR (Non-Af Amer) 39.5 ml/min BUN/Creatinine Ratio 15.2 (10-20) Glucose 96 (70-99(Fasting)) mg/dl Lactate (0.4-2.0) mmol/L Calcium 9.3 (8.6-10.3) mg/dl Magnesium 1.6 L (1.7-2.4) mg/dl Total Bilirubin 0.8 (0.2-1.0) mg/dl Direct Bilirubin 0.2 (0-0.2) mg/dl AST 27 (13-39) U/L ALT 22 (7-52) U/L Alkaline Phosphatase 93 (34-104) U/L Troponin I High Sens 12.5 (0-14) pg/ml Total Protein 6.5 (6.0-8.3) gm/dl Albumin 4.0 (3.4-5.0) gm/dl Procalcitonin (0-0.5) ng/ml Urine Color Urine Appearance (Clear) Urine pH (4.5-7.5) Ur Specific Apison (1.000-1.030) Urine Protein (Negative) Urine Glucose (UA) (Negative) Urine Ketones (Negative) Urine Blood (Negative) Urine Nitrite (Negative) Urine Bilirubin (Negative) Urine Urobilinogen (Negative) Ur Leukocyte Esterase (Negative) Urine WBC (Auto) (0-5) /hpf Urine RBC (Auto) (0-4) /hpf U Hyaline Cast (Auto) (0-5) /lpf U Epithel Cells (Auto) (0-5) /lpf Urine Bacteria (Auto) (Negative) SARS-CoV-2, RNA, NAAT (NEGATIVE) 09/26/22 09/26/22 09/26/22 Range/Units 17:25 17:25 17:25 WBC (4.8-10.8) K/ul RBC (4.20-5.40) M/uL Hgb (12.0-16.0) g/dl Hct (37.0-47.0) % MCV (80.0-100.0) fL MCH (25.0-34.0) pg MCHC (32.0-36.0) g/dL RDW Std Deviation (36.4-46.3) fL RDW Coeff of Deniz (11.5-14.5) % Plt Count (130-400) K/uL MPV (9.4-12.4) fL Immature Gran % (Auto) % Neut % (Auto) % Lymph % (Auto) % Door % (Auto) % Eos % (Auto) % Baso % (Auto) % Neut # (Auto) (1.40-6.50) K/uL Lymph # (Auto) (1.2-3.4) K/uL Door # (Auto) (0.11-0.59) K/uL Eos # (Auto) (0-0.50) K/uL Baso # (Auto) (0-0.2) K/uL Immature Gran # (Auto) (0.01-0.20) K/uL PT (9.0-12.0) Seconds INR (0.9-1.1) APTT (21.0-31.0) Seconds PTT Ratio Sodium (136-145) mmol/L Potassium (3.5-5.1) mmol/L Chloride (98-107) mmol/L Carbon Dioxide (21-32) mmol/L Anion Gap (3-11) BUN (6-23) mg/dl Creatinine (0.6-1.2) mg/dl Est Cr Clr Drug Dosing ml/min Est GFR ( Amer) ml/min Est GFR (Non-Af Amer) ml/min BUN/Creatinine Ratio (10-20) Glucose (70-99(Fasting)) mg/dl Lactate 0.8 (0.4-2.0) mmol/L Calcium (8.6-10.3) mg/dl Magnesium (1.7-2.4) mg/dl Total Bilirubin (0.2-1.0) mg/dl Direct Bilirubin (0-0.2) mg/dl AST (13-39) U/L ALT (7-52) U/L Alkaline Phosphatase (34-104) U/L Troponin I High Sens (0-14) pg/ml Total Protein (6.0-8.3) gm/dl Albumin (3.4-5.0) gm/dl Procalcitonin 0.05 (0-0.5) ng/ml Urine Color Urine Appearance (Clear) Urine pH (4.5-7.5) Ur Specific Apison (1.000-1.030) Urine Protein (Negative) Urine Glucose (UA) (Negative) Urine Ketones (Negative) Urine Blood (Negative) Urine Nitrite (Negative) Urine Bilirubin (Negative) Urine Urobilinogen (Negative) Ur Leukocyte Esterase (Negative) Urine WBC (Auto) (0-5) /hpf Urine RBC (Auto) (0-4) /hpf U Hyaline Cast (Auto) (0-5) /lpf U Epithel Cells (Auto) (0-5) /lpf Urine Bacteria (Auto) (Negative) SARS-CoV-2, RNA, NAAT NEGATIVE (NEGATIVE) 09/26/22 Range/Units 19:24 WBC (4.8-10.8) K/ul RBC (4.20-5.40) M/uL Hgb (12.0-16.0) g/dl Hct (37.0-47.0) % MCV (80.0-100.0) fL MCH (25.0-34.0) pg MCHC (32.0-36.0) g/dL RDW Std Deviation (36.4-46.3) fL RDW Coeff of Deniz (11.5-14.5) % Plt Count (130-400) K/uL MPV (9.4-12.4) fL Immature Gran % (Auto) % Neut % (Auto) % Lymph % (Auto) % Door % (Auto) % Eos % (Auto) % Baso % (Auto) % Neut # (Auto) (1.40-6.50) K/uL Lymph # (Auto) (1.2-3.4) K/uL Door # (Auto) (0.11-0.59) K/uL Eos # (Auto) (0-0.50) K/uL Baso # (Auto) (0-0.2) K/uL Immature Gran # (Auto) (0.01-0.20) K/uL PT (9.0-12.0) Seconds INR (0.9-1.1) APTT (21.0-31.0) Seconds PTT Ratio Sodium (136-145) mmol/L Potassium (3.5-5.1) mmol/L Chloride (98-107) mmol/L Carbon Dioxide (21-32) mmol/L Anion Gap (3-11) BUN (6-23) mg/dl Creatinine (0.6-1.2) mg/dl Est Cr Clr Drug Dosing ml/min Est GFR ( Amer) ml/min Est GFR (Non-Af Amer) ml/min BUN/Creatinine Ratio (10-20) Glucose (70-99(Fasting)) mg/dl Lactate (0.4-2.0) mmol/L Calcium (8.6-10.3) mg/dl Magnesium (1.7-2.4) mg/dl Total Bilirubin (0.2-1.0) mg/dl Direct Bilirubin (0-0.2) mg/dl AST (13-39) U/L ALT (7-52) U/L Alkaline Phosphatase (34-104) U/L Troponin I High Sens (0-14) pg/ml Total Protein (6.0-8.3) gm/dl Albumin (3.4-5.0) gm/dl Procalcitonin (0-0.5) ng/ml Urine Color Yellow Urine Appearance Clear (Clear) Urine pH 7.0 (4.5-7.5) Ur Specific Apison 1.012 (1.000-1.030) Urine Protein Trace H (Negative) Urine Glucose (UA) Negative (Negative) Urine Ketones Trace H (Negative) Urine Blood Trace H (Negative) Urine Nitrite Negative (Negative) Urine Bilirubin Negative (Negative) Urine Urobilinogen Negative (Negative) Ur Leukocyte Esterase Negative (Negative) Urine WBC (Auto) 0 (0-5) /hpf Urine RBC (Auto) 0-4 (0-4) /hpf U Hyaline Cast (Auto) 0 (0-5) /lpf U Epithel Cells (Auto) 5-10 H (0-5) /lpf Urine Bacteria (Auto) Negative (Negative) SARS-CoV-2, RNA, NAAT (NEGATIVE) Imaging Data Attestation: I personally reviewed and interpreted this imaging study as follows: My Impression: Chest x-ray interpreted by me increased pulmonary markings bilaterally questiona ble right hilar infiltrate Radiologist's Impression: Chest X-Ray 09/26/22 16:56 SINGLE VIEW CHEST CLINICAL HISTORY: Sepsis FINDINGS: An AP, portable, upright chest radiograph is compared to study dated 01/31/2022. Correlation is made with chest CT dated 11/03/2013. The examination is degraded by portable technique and patient rotation. The heart is enlarged note atherosclerotic calcification of the thoracic aorta. There is pulmonary vascular congestion. Scarring/atelectasis is noted at the lung bases. No airspace consolidation or large pleural effusion is identified. No pneumothorax is seen. The skeletal structures are osteopenic. The bony thorax is grossly in tact. IMPRESSION: Cardiomegaly with pulmonary vascular congestion. ACT 112: Negative or not required by law. Electronically signed by: Aleksander Hampton M.D. 09/26/2022 5:26 PM ECG Data Attestation: I personally reviewed and interpreted this ECG as follows: Additional Comments: EKG interpreted by me normal sinus rhythm rate of 71 first-degree AV block no obvious ST segment elevation or depression normal axis Repeat EKG, interpreted by me as sinus rhythm rate of 67 first-degree AV block poor R wave progression the precordium no obvious ST segment elevation or depression; time of EKG is 2019 Telemetry was ordered by me, interpreted as normal sinus rhythm rate of 70 MDM Narrative Medical decision making differential diagnosis includes bronchitis, upper respiratory tract infection, pneumonia, sepsis, urinary tract infection, COVID, electrolyte abnormality Plan is to check sepsis labs External medical records were reviewed by me Patient had a complaint of fever general chills illness, I suspected that the patient could be septic have a urinary tract infection pneumonia or COVID however patient also is complaining of chest pressure, chest x-ray appears that she could have early CHF, patient will be admitted for further evaluation, the case was discussed with the [facility] hospitalist Heart score is a 4 Impression & Plan Chest pain, Fever Discharge Plan Visit Data Chief Complaint: Illness Stated Complaint: HTN, LOW GRADE FEVER,CHEST PAIN,CHILLS ED Provider: Franko Lange Discharge Problem: Chest pain, Fever Patient Disposition: Admitted As Inpatient Forms Stand Alone Forms: My [facility] Prescriptions Prescriptions: No Action amlodipine 5 mg tablet 5 mg PO BID aspirin [Annel Low Dose Aspirin] 81 mg Tablet,Delayed Release (Dr/Ec) 81 mg PO HS amiodarone 200 mg Tablet 200 mg PO HS valsartan 160 mg Tablet 160 mg PO AMHS escitalopram oxalate [Lexapro] 5 mg Tablet 5 mg PO QAM metoprolol tartrate 25 mg Tablet 25 mg PO BID Eliquis 2.5 mg Tablet 2.5 mg PO BID cholecalciferol (vitamin D3) [Vitamin D3] 25 mcg (1,000 unit) Tablet 25 mcg PO HS prednisone 5 mg Tablet 5 mg PO DAILY chlorthalidone 25 mg Tablet 12.5 mg PO DAILY Referrals Referrals: Sadie Guzman MD [Primary Care Provider] -
--- NOTE | 2022-09-26 17:29 | XRay Report ---
SINGLE VIEW CHEST CLINICAL HISTORY: Sepsis FINDINGS: An AP, portable, upright chest radiograph is compared to study dated 01/31/2022. Correlatio n is made with chest CT dated 11/03/2013. The examination is degraded by portable technique and patien t rotation. The heart is enlarged note atherosclerotic calcification of the thoracic aorta. There is pulmonary vascular congestion. Scarring/atelectasis is noted at the lung bases. No airspace consolid ation or large pleural effusion is identified. No pneumothorax is seen. The skeletal structures are o steopenic. The bony thorax is grossly intact. IMPRESSION: Cardiomegaly with pulmonary vascular congestion. ACT 112: Negative or not required by law. Electronically signed by: Aleksander Hampton M.D. 09/26/2022 5:26 PM
[2022-09-26 17:54] LABS: Basophils # (auto) 0.05 K/uL (0-0.2); Basophils % (auto) 0.8 %; Eosinophils # (auto) 0.04 K/uL (0-0.50); Eosinophils % (auto) 0.6 %; Hematocrit (blood only) 35.5 % (37.0-47.0); Hemoglobin 11.7 g/dl (12.0-16.0); Immature Granulocytes # (auto) 0.09 K/uL (0.01-0.20); Immature Granulocytes % (auto) 1.5 %; Lymphocytes # (auto) 0.48 K/uL (1.2-3.4); Lymphocytes % (auto) 7.7 %; Mean Corpuscular Hemoglobin 30.2 pg (25.0-34.0); Mean Corpuscular Volume 91.7 fL (80.0-100.0); Mean Platelet Volume 10.6 fL (9.4-12.4); Monocytes # (auto) 0.48 K/uL (0.11-0.59); Monocytes % (auto) 7.7 %; Neutrophils # (auto) 5.06 K/uL (1.40-6.50); Neutrophils % (auto) 81.7 %; Platelet Count 178 K/uL (130-400); RDW Coefficient of Variation 12.6 % (11.5-14.5); RDW Standard Deviation 41.7 fL (36.4-46.3); Red Blood Count 3.87 M/uL (4.20-5.40)
[2022-09-26 18:03] LABS: BUN Creatinine Ratio 15.2 (10-20); Bilirubin Direct 0.2 mg/dl (0-0.2); Bilirubin,Total 0.8 mg/dl (0.2-1.0); Calcium 9.3 mg/dl (8.6-10.3); Creatinine Clr Calc Pharmacy 39.8 ml/min; Est GFR (African American) 45.7 ml/min; Est GFR (Non-African American) 39.5 ml/min; Magnesium 1.6 mg/dl (1.7-2.4); Potassium 4.5 mmol/L (3.5-5.1); Total Protein 6.5 gm/dl (6.0-8.3)
[2022-09-26 18:10] LABS: Troponin I High Sensitivity 12.5 pg/ml (0-14)
[2022-09-26 18:13] LABS: INR 1.1 (0.9-1.1); Partial Thromboplastin Ratio 0.9; Partial Thromboplastin Time 26.6 Seconds (21.0-31.0); Prothrombin Time 11.7 Seconds (9.0-12.0)
[2022-09-26] MEDS ORDERED: ACETAMINOPHEN 500 MG TAB PO STA (19:20)
[2022-09-26 19:49] LABS: Appearance Urine Clear (Clear); Bacteria Urine Automated Negative (Negative); Bilirubin Urine Negative (Negative); Blood Urine Trace (Negative); Cast Urine Automated 0 /lpf (0-5); Color Urine Yellow; Glucose Urine UA Negative (Negative); Ketones Urine Trace (Negative); Leukocyte Esterase Urine Negative (Negative); Nitrite Urine Negative (Negative); Protein Urine Trace (Negative); RBC Urine Automated 0-4 /hpf (0-4); Specific Gravity Urine 1.012 (1.000-1.030); Urobilinogen Urine Negative (Negative); WBC Urine Automated 0 /hpf (0-5)
[2022-09-26] MEDS ORDERED: MAGNESIUM SULFATE / D5W 1 GM/100 ML BAG IV ONE (20:30)
--- NOTE | 2022-09-26 20:37 | History & Physical Report ---
Date of Service September 26, 2022 Assessment & Plan (1) Fever: (2) Chest pain: (3) Chronic heart failure with preserved ejection fraction (HFpEF): (4) Paroxysmal a-fib: (5) HTN (hypertension): (6) CKD (chronic kidney disease), stage III: Plan This is an 82-year-old female who has significant past medical history of paroxysmal atrial fibrillation anticoagulated on Eliquis and rhythm controlled on amiodarone, HTN, aortic valve stenosis, aortic valve regurg, HTN, CKD stage III, GERD, osteoarthritis, senile osteoporosis, MGUS, history of DVT, factor V Leiden deficiency, history of colon polyps who presents ED secondary to fever and ill feeling x 2-3 days. Fever Admit to telemetry Empirically treat with IV ceftriaxone while work-up in progress Initial urinalysis negative Blood cultures obtained Obtain [employer] respiratory panel, tick borne illness panel Treat fever with as needed Tylenol Symptoms include fever, chills, malaise, headache and nausea No known sick contacts Chest pain Chronic HFpEF, compensated HTN Moderate aortic stenosis Patient with reported chest pain today in the setting of reported blood pressure being in the 190s She does admit to not always being compliant with chlorthalidone due to urinary urgency and frequency She has been compliant with valsartan, amlodipine and metoprolol We will start her on Lasix 20 mg IV tomorrow morning and continue other current blood pressure medications Hold chlorthalidone while on IV Lasix Cycle troponins for completeness, but doubt ACS EKG without ischemic findings Obtain BNP, chest x-ray with pulmonary vascular congestion last echo 04/2022:LVEF 60 to 64%, high atrial pressure, moderate grade 2 diastolic dysfunction, moderate aortic stenosis Paroxysmal atrial fibrillation Continue metoprolol, amiodarone and Eliquis Follows [facility] cardiology Hypomagnesemia Replete CKD stage III Creatinine 1.25, monitor renal function and avoid nephrotoxic agents Hx of DVT Factor V def continue eliquis Dvt ppx: eliqius Lines:Peripheral IV, no hernandez FULL CODE PCP: Dr. Guzman Dispo: admit to med tele, PT/OT consulted, plan to return home once medically stable Pt was seen and examined in collaboration with Dr. Rodriguez, please see addendum History of Present Illness Chief Complaint: fever and ill feeling x 2-3 days. Primary Care Provider: Sadie Guzman MD This is an 82-year-old female who has significant past medical history of paroxysmal atrial fibrillation anticoagulated on Eliquis and rhythm controlled on amiodarone, HTN, aortic valve stenosis, aortic valve regurg, HTN, CKD stage III, GERD, osteoarthritis, senile osteoporosis, MGUS, history of DVT, factor V Leiden deficiency, history of colon polyps who presents ED secondary to fever and ill feeling x 2-3 days. Patient's [id number] is at bedside. She lives alone and typically ambulates with a cane. She is very active at baseline with cleaning her house and doing her gardening despite summer temperatures. She states over the last 2 to 3 days she has had increased fatigue, malaise and unable to do the work that she typically does. Today she reported fever and chills with a Tmax of 100. She denies any sick contacts. Her appetite has remained unchanged. She also checked her blood pressure today and her systolic blood pressure was in the 190s. This was also associated with substernal chest pressure and shortness of breath. According to [id number] at bedside she had significant trouble walking from the house to the car prior to coming to hospital which is significantly unusual for her. She denies any increase in weight or lower extremity swelling. She admits to not always being compliant with chlorthalidone due to urinary urgency and frequency. She does report increased urinary urgency and frequency the last 2 to 3 days but denies any dysuria. For the last month she has had a cough that does get worse when lying flat at night. She denies any lightheadedness, dizziness, change in vision, neck pain or stiffness, shortness breath at rest, hemoptysis, vomiting, abdominal pain, diarrhea. She has been significantly nauseated and also complains of a headache. She denies any known tick bites or rashes. In ED patient was hemodynamically stable although she did have elevated temp at 37.8. Her blood work was significant for anemia with an H&H of 11.7 and 35.5, WBC was normal, mild lymphopenia, sodium 133, creatinine 1.25, mag of 1.6. Her troponin and procalcitonin was normal. Her urinalysis was negative as well. Chest x-ray did reveal pulmonary vascular congestion. Allergies Allergy/AdvReac Type Severity Reaction Status Date / Time nitrofurantoin Allergy Intermediate HIVES Verified 09/26/22 19:38 Penicillins Allergy Intermediate HIVES Verified 09/26/22 19:38 Egg Derived AdvReac Intermediate GI SYMPTOMS Verified 09/26/22 19:38 Home Medications Medication Instructions Recorded Confirmed Type amlodipine 5 mg tablet 5 mg PO BID 01/18/20 09/26/22 History aspirin 81 mg tablet,delayed 81 mg PO HS 01/18/20 09/26/22 History release (Annel Low Dose Aspirin) amiodarone 200 mg tablet 200 mg PO HS 05/11/20 09/26/22 History apixaban 2.5 mg tablet (Eliquis) 2.5 mg PO BID 09/26/22 09/26/22 History chlorthalidone 25 mg tablet 12.5 mg PO DAILY 09/26/22 09/26/22 History cholecalciferol (vitamin D3) 25 25 mcg PO HS 09/26/22 09/26/22 History mcg (1,000 unit) tablet (Vitamin D3) escitalopram oxalate 5 mg tablet 5 mg PO QAM 09/26/22 09/26/22 History (Lexapro) metoprolol tartrate 25 mg tablet 25 mg PO BID 09/26/22 09/26/22 History valsartan 160 mg tablet 160 mg PO AMHS 09/26/22 09/26/22 History Past Med/Surg History Medical History Anemia Asthma CHILDHOOD ONLY Atrial fibrillation with controlled ventricular rate Basal cell carcinoma Bronchitis Cardiac murmur CKD (chronic kidney disease), stage III DVT (deep venous thrombosis) "MANY YEARS AGO" AFTER SURGERY Encounter for pre-operative examination Factor 5 Leiden mutation, heterozygous Fibromyalgia GERD (gastroesophageal reflux disease) HTN (hypertension) Hx of blood clots Osteoarthritis Paroxysmal a-fib Precordial chest pain Spinal stenosis Subtherapeutic international normalized ratio (INR) Supratherapeutic INR Thyroid nodule BIOPSY NEGATIVE Surgical History H/O dilation and curettage H/O parathyroidectomy History of adenoidectomy History of cholecystectomy History of colonoscopy History of tonsillectomy History of tooth extraction Family History Father Family history of diabetes mellitus Diabetes Stroke Sister Family hx of colon cancer Cancer Colorectal cancer Heart disease Mother Cancer Daughter Breast cancer Other Hypertension Social History Smoking Status: Never smoker Second Hand Exposure: No; Do You Dip or Chew Tobacco: No; Hx Alcohol Use: No Hx Substance Use: No Preferred Language: Ghanaian Communication Ability: Effective Visual Impairment: No Limitations 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 Beliefs That Will Affect Care: None marital status: / Current Living Situation: Alone current occupational status: retired Feels Safe at Home: Yes Assistive Devices: None Review of Systems Review of Systems: All systems reviewed & are unremarkable except as noted in HPI & below Physical Exam Physical Exam: Constitutional: Elderly, F, sitting up in bed WD/WN, vitals as above, NAD,, pleasant, conversing easily Head: Normocephalic, Atraumatic Eyes: PERRL, conjunctivae normal, anicteric sclerae ENMT: external ear and nose normal, oropharynx normal Neck: trachea midline, no thyromegaly normal visual inspection Respiratory: 93% on RA, normal respiratory effort, lungs clear to auscultation, no wheeze, rales, rhonchi. Normal insp/exp effort, no accessory muscle use Cardiovascular: RRR, 2/6 MARCELLA noted RUSB, no edema but b/l varicosities, Vessels: no JVD or carotid bruit Chest: normal inspection of chest Abdomen: normal bowel sounds, soft, nontender, no hepatosplenomegaly Musculoskeletal: no cyanosis or clubbing, AROM x 4 Skin: no rashes, + ecchymosis b/l pretibial area and dorsal aspect of forearms b/l, warm and dry normal turgor Neurologic: PERRL, EOMI, accommodation nl, no face palsy, no dysarthria CN's II-XI intact bilaterally and moves all extremities Psychiatric: A+Ox3, euthymic affect Lymphatic: no cervical or axillary lymphadenopathy : deferred Results & Data Results & Data Vital Signs (Past 12 Hours) Vital Signs Temp Pulse Pulse Resp BP BP Pulse Ox 09/26/22 20:22 68 19 148/85 H 93 09/26/22 19:00 37.8 C H 70 20 179/85 H 93 09/26/22 18:39 68 17 181/85 H 91 09/26/22 18:04 69 09/26/22 17:56 70 17 92 09/26/22 16:51 37.2 C 75 20 198/64 H 92 O2 Del Method 09/26/22 20:22 Room Air 09/26/22 19:00 Room Air 09/26/22 18:39 Room Air 09/26/22 18:04 09/26/22 17:56 Room Air 09/26/22 16:51 Room Air Diagnostic Findings Chest X-Ray 09/26/22 16:56 SINGLE VIEW CHEST CLINICAL HISTORY: Sepsis FINDINGS: An AP, portable, upright chest radiograph is compared to study dated 01/31/2022. Correlation is made with chest CT dated 11/03/2013. The examination is degraded by portable technique and patient rotation. The heart is enlarged note atherosclerotic calcification of the thoracic aorta. There is pulmonary vascular congestion. Scarring/atelectasis is noted at the lung bases. No airspace consolidation or large pleural effusion is identified. No pneumothorax is seen. The skeletal structures are osteopenic. The bony thorax is grossly intact. IMPRESSION: Cardiomegaly with pulmonary vascular congestion. ACT 112: Negative or not required by law. Electronically signed by: Aleksander Hampton M.D. 09/26/2022 5:26 PM Medications Administered Medication List Discontinued Medications Acetaminophen (Acetaminophen 500 Mg Tab) 1,000 mg PO NOW STA Stop: 09/26/22 19:21 Last Admin: 09/26/22 19:27 Dose: 1,000 mg Documented By: QGV ECG Rate (beats per minute): 67 Rhythm: normal sinus Findings: + 1st degree AV block Additional Comments: no st t wave changes, viewed by me COVID-19 Results Results COVID-19 Adm Lab Results: RBC 3.87 M/uL (4.20-5.40) L 09/26/22 WBC 6.20 K/ul (4.8-10.8) 09/26/22 Hgb 11.7 g/dl (12.0-16.0) L 09/26/22 Hct 35.5 % (37.0-47.0) L 09/26/22 Plt Count 178 K/uL (130-400) 09/26/22 Neutrophils (%) (Auto) 81.7 % 09/26/22 Lymphocytes (%) (Auto) 7.7 % 09/26/22 Monocytes # (Auto) 0.48 K/uL (0.11-0.59) 09/26/22 Eosinophils # (Auto) 0.04 K/uL (0-0.50) 09/26/22 Immature Granulocyte % (Auto) 1.5 % 09/26/22 Neutrophils # (Auto) 5.06 K/uL (1.40-6.50) 09/26/22 Lymphocytes # (Auto) 0.48 K/uL (1.2-3.4) L 09/26/22 Monocytes # (Auto) 0.48 K/uL (0.11-0.59) 09/26/22 Eosinophils # (Auto) 0.04 K/uL (0-0.50) 09/26/22 Basophils # (Auto) 0.05 K/uL (0-0.2) 09/26/22 Immature Granulocyte # (Auto) 0.09 K/uL (0.01-0.20) 3 Na 133 mmol/L (136-145) L 09/26/22 K 4.5 mmol/L (3.5-5.1) 09/26/22 Cl 100 mmol/L (98-107) 09/26/22 CO2 25 mmol/L (21-32) 09/26/22 Anion Gap 8 (3-11) 09/26/22 BUN 19 mg/dl (6-23) 09/26/22 Creatinine 1.25 mg/dl (0.6-1.2) H 09/26/22 BUN/Creatinine Ratio 15.2 (10-20) 09/26/22 Glucose Level 96 mg/dl (70-99(Fasting)) 09/26/22 Ca 9.3 mg/dl (8.6-10.3) 09/26/22 Total Bilirubin 0.8 mg/dl (0.2-1.0) 09/26/22 Direct Bilirubin 0.2 mg/dl (0-0.2) 09/26/22 AST/SGOT 27 U/L (13-39) 09/26/22 ALT/SGPT 22 U/L (7-52) 09/26/22 Alkaline Phosphatase 93 U/L (34-104) 09/26/22 Total Protein 6.5 gm/dl (6.0-8.3) 09/26/22 Albumin 4.0 gm/dl (3.4-5.0) 09/26/22 Procalcitonin 0.05 ng/ml (0-0.5) 09/26/22 PTT 26.6 Seconds (21.0-31.0) 09/26/22 INR 1.1 (0.9-1.1) 09/26/22 Adenovirus (PCR) Not Detected (NotDetected) 09/26/22 B. parapertussis DNA (PCR) Not Detected (NotDetected) 09/07 04/30 B. pertussis DNA (PCR) Not Detected (NotDetected) 09/26/22 C. pneumoniae DNA (PCR) Not Detected (NotDetected) 3 Coronavirus Type OC43 (PCR) Not Detected (NotDetected) Coronavirus Type HKU1 (PCR) Not Detected (NotDetected) Coronavirus Type 229E (PCR) Not Detected (NotDetected) COVID-19 PCR Not Detected (NotDetected) 09/26/22 Coronavirus Type NL63 (PCR) Not Detected (NotDetected) Human Metapneumovirus (PCR) Not Detected (NotDetected) Influenza Virus Type A (PCR) Not Detected (NotDetected) Influenza Virus Type B (PCR) Not Detected (NotDetected) M. pneumoniae (PCR) Not Detected (NotDetected) 09/26/22 Parainfluenza Type 1 (PCR) Not Detected (NotDetected) 09/07 04/30 Parainfluenza Type 2 (PCR) Not Detected (NotDetected) 09/07 04/30 Parainfluenza Type 3 (PCR) Not Detected (NotDetected) 09/07 04/30 Parainfluenza Type 4 (PCR) Not Detected (NotDetected) 09/07 04/30 RSV (PCR) Not Detected (NotDetected) 09/26/22 Enterovirus/Rhinovirus (PCR) Not Detected (NotDetected) SARS-CoV-2, RNA, NAAT NEGATIVE (NEGATIVE) 09/26/22 Chest X-Ray 09/26/22 Code Status & VTE Plan Code Status FULL CODE VTE Prophylaxis Plan VTE Prophylaxis will be ordered: No Supervising Physician Co-Signing Physician Notes Patient seen and examined independently. Discussed with the above provider. Patient is a 82-year-old female with multiple medical issues who presented to the ED with fever. Tmax of 37.8 C in the ED. No leukocytosis, Pro-Jose negative Chest x-ray shows vascular congestion; no definite infiltrates Obtain respiratory bio fire, blood culture, tickborne illness panel. Started empiric ceftriaxone. Start her on Lasix 20 mg IV starting tomorrow AM. Patient likely benefit from t ransitioning from chlorthalidone to Lasix at discharge for her vascular congestion and chronic HFpEF. Obtain BNP.
[2022-09-26 21:46] LABS: Adenovirus PCR Not Detected (NotDetected); Bordetella parapertussis PCR Not Detected (NotDetected); Bordetella pertussis PCR Not Detected (NotDetected); Chlamydia pneumoniae PCR Not Detected (NotDetected); Coronavirus 229E PCR Not Detected (NotDetected); Coronavirus CoV-2 (COVID19)PCR Not Detected (NotDetected); Coronavirus HKU1 PCR Not Detected (NotDetected); Coronavirus NL63 PCR Not Detected (NotDetected); Coronavirus OC43PCR Not Detected (NotDetected); Human Metapneumovirus PCR Not Detected (NotDetected); Influenza A PCR Not Detected (NotDetected); Influenza B PCR Not Detected (NotDetected); Mycoplasma pneumoniae PCR Not Detected (NotDetected); Parainfluenza Virus 1 PCR Not Detected (NotDetected); Parainfluenza Virus 2 PCR Not Detected (NotDetected); Parainfluenza Virus 3 PCR Not Detected (NotDetected); Parainfluenza Virus 4 PCR Not Detected (NotDetected); Respiratory Syncytial VirusPCR Not Detected (NotDetected); Rhinovirus/Enterovirus PCR Not Detected (NotDetected)
[2022-09-26 21:51] LABS: Lyme Ab IgG w/WB Rflx Negative (Negative); Lyme Ab IgM w/WB Rflx Negative (Negative)
[2022-09-26] MEDS ORDERED: MAGNESIUM HYDROXIDE SUSP 30 ML UDC PO PRN (22:51)
[2022-09-26] MEDS ORDERED: POLYETHYLENE (MIRALAX) 17 GM PACK PO PRN (22:51)
[2022-09-26] MEDS ORDERED: ALUMINUM/MAGNESIUM SUSP 30 ML UDC PO PRN (22:51)
[2022-09-26] MEDS ORDERED: ONDANSETRON INJ 2 MG/ML 2 ML VIAL IV PRN (22:51)
[2022-09-26] MEDS: cefTRIAXone SODIUM 2,000 MG in DEXTROSE 5% 50 ML IV SCH (23:51)
[2022-09-26] MEDS: VALSARTAN 80 MG TAB PO SCH (23:52)
[2022-09-26] MEDS: METOPROLOL TARTRATE 25 MG TAB PO SCH (23:52)
[2022-09-26] MEDS: amLODIPine BESYLATE 5 MG TAB PO SCH (23:53)
[2022-09-26] MEDS: ASPIRIN 81 MG ECTAB PO SCH (23:53)
[2022-09-26] MEDS: AMIODARONE 200 MG TAB PO SCH (23:53)
[2022-09-26] MEDS: APIXABAN 2.5 MG TAB PO SCH (23:53)
[2022-09-26] MEDS: CHOLECALCIFEROL 1,000 UNITS 25 MCG TAB PO SCH (23:54)
[2022-09-27] MEDS: ACETAMINOPHEN 325 MG TAB PO PRN ×3 (06:09→20:49)
[2022-09-27 06:40] LABS: Basophils # (auto) 0.03 K/uL (0-0.2); Basophils % (auto) 0.5 %; Eosinophils # (auto) 0.01 K/uL (0-0.50); Eosinophils % (auto) 0.2 %; Hematocrit (blood only) 33.4 % (37.0-47.0); Immature Granulocytes # (auto) 0.07 K/uL (0.01-0.20); Immature Granulocytes % (auto) 1.1 %; Lymphocytes # (auto) 0.42 K/uL (1.2-3.4); Lymphocytes % (auto) 6.4 %; Mean Corpuscular Hemoglobin 30.5 pg (25.0-34.0); Mean Corpuscular Hgb Conc 32.9 g/dL (32.0-36.0); Mean Corpuscular Volume 92.5 fL (80.0-100.0); Mean Platelet Volume 10.6 fL (9.4-12.4); Monocytes # (auto) 0.59 K/uL (0.11-0.59); Neutrophils # (auto) 5.46 K/uL (1.40-6.50); Neutrophils % (auto) 82.8 %; Platelet Count 156 K/uL (130-400); RDW Coefficient of Variation 12.7 % (11.5-14.5); RDW Standard Deviation 42.9 fL (36.4-46.3); Red Blood Count 3.61 M/uL (4.20-5.40); White Blood Count 6.58 K/ul (4.8-10.8)
[2022-09-27 06:52] LABS: Albumin Globulin Ratio 1.5 (0.9-2); Albumin Level 3.5 gm/dl (3.4-5.0); BUN Creatinine Ratio 12.9 (10-20); Bilirubin,Total 0.5 mg/dl (0.2-1.0); Creatinine Clr Calc Pharmacy 42.9 ml/min; Est GFR (African American) 50.1 ml/min; Est GFR (Non-African American) 43.2 ml/min; Globulin 2.4 gm/dl (2.5-4.0); Magnesium 1.7 mg/dl (1.7-2.4); Potassium 4.3 mmol/L (3.5-5.1); Total Protein 5.9 gm/dl (6.0-8.3)
[2022-09-27] MEDS: APIXABAN 2.5 MG TAB PO SCH ×2 (08:15→20:49)
[2022-09-27] MEDS: ESCITALOPRAM OXALATE 10 MG TAB PO SCH (08:15)
[2022-09-27] MEDS: FUROSEMIDE INJ 20 MG/2 ML VIAL IV SCH (08:15)
[2022-09-27] MEDS: amLODIPine BESYLATE 5 MG TAB PO SCH ×2 (08:15→20:50)
[2022-09-27] MEDS: METOPROLOL TARTRATE 25 MG TAB PO SCH ×2 (08:16→20:49)
[2022-09-27] MEDS: VALSARTAN 80 MG TAB PO SCH ×2 (08:16→20:49)
--- NOTE | 2022-09-27 11:39 | Cardiology Consultation ---
Date of Consultation September 27, 2022 Assessment & Plan (1) Fever: (2) Heart failure, diastolic, with acute decompensation: (3) Hypertensive urgency: (4) Elevated troponin: (5) Aortic stenosis: (6) Paroxysmal a-fib: (7) CKD (chronic kidney disease), stage III: Plan Fever and chills. Suspected urinary tract infection with urine and blood cultures pending, empirically treated with IV ceftriaxone. As per Hospitalist Acute decompensated diastolic congestive heart failure. Echo now with severe pulmonary hypertension, estimated systolic pulmonary pressure 68 mmHg via September 27, 2022 resting echocardiogram. Patient symptomatically improved following administration of low dose IV furosemide. Continue IV furosemide. Recommend transitioning to loop diuretic therapy on discharge (was taking chlorthalidone intermittently at home) Elevated troponin. EKG without acute change. Echo without wall motion abnormality; normal LV function. Suspect demand ischemia in the setting of acute febrile illness, hypertensive urgency, acute decompnesated heart failure, chronic kidney disease. Continue medical management. Hypertensive urgency. Labile hypertension noted as an outpatient. Improved. Continue metoprolol, amlodipine, and valsartan. Paroxysmal atrial fibrillation. Continue metoprolol, amiodarone, and reduced dose Eliquis anticoagulation Moderate aortic stenosis. Outpatient follow-up. Supervising Physician Co-Signing Physician Notes Patient seen and examined at the bedside. 82-year-old female presented to the emergency department with fever, chills, chest discomfort, and cough. Treated with a dose of intravenous furosemide with improvement of symptoms. Currently chest pain-free. No ischemic ECG changes. Echocardiogram demonstrating preserved LV systolic function without regional wall motion abnormality. Moderate aortic valve stenosis with mild mitral and tricuspid regurgitation and severe pulmonary hypertension which is a change from prior studies. Notes nonproductive cough. Low-grade temperature noted on presentation. Denies sick contacts. No frequency, urgency, dysuria, or hematuria. Denies PND, however, typically cannot lie flat due to chronic back pain. PE:VSS. Hypertensive. Currently afebrile. Gen: NAD awake alert and oriented x3. Heart: Regular rhythm, 3/6 systolic ejection murmur heard best at the right second intercostal space. Lungs: Crackles at the bases bilaterally. No rales, rhonchi, or wheeze. Extremities: No edema. A/P: Agree with above PA-C history, physical exam, assessment and plan. 82-year-old female admitted with febrile illness, acute heart failure with preserved ejection fraction, chest discomfort with mildly elevated troponin. I suspect troponin elevated secondary to demand ischemia in setting of uncontrolled hypertension, decompensated heart failure, and infectious process. Continue daily loop diuretic therapy with close attention to fluid balance, daily weight, GFR, and electrolytes. Add topical nitrates. Infectious evaluation unrevealing thus far with cultures pending. I have ordered a mycoplasma and Legionella IgM for completeness. History of Present Illness Reason for Consultation: Elevated Troponin Requesting Physician: Jennifer Attending Physician: Veronica History of Present Illness Ms. Tami Evangelista is a very pleasant 82 year old female who presented to the [facility] ER on 09/26/2022 with fevers, chills, chest pain, and shortness of breath. Patient notes "I've been coughing (nonproductive) my head off for over a month, until I throw up. Last week I had no energy, shortness of breath, chest pressure, a terrible headache, and my blood pressure was very high. Then I took chills." Temperate 100.6 at home. + Increase urinary urgency and frequency without dysuria or hematuria. Empiric ceftriaxone prescribed. Urine and blood cultures pending. BP on presentation to the ER was 198/64. No activity related chest pain. No tachypalpitations. Chronic stable orthopnea without PND. No rash. + Nausea. No change in appetite. No sick contacts. No diarrhea. Chest x-ray did reveal pulmonary vascular congestion. High sensitivity Troponin I 12.5 -> 305.2 -> 487.3 -> 587.9 pg/mL. EKG without acute changes. Echo without wall motion abnormalities, now demonstrating severe pulmonary hypertension and moderate aortic valve stenosis. Daughter Lisa, a retired Integration Specialist PA-C notes that her mother has labile blood pressures and has previously experienced syncope associated with hypotension. Past Medical and Surgical History: Paroxysmal atrial fibrillation, on Amiodarone [id number] score of 4 (age 1, female, hypertension)- on reduced dose Eliquis anticoagulation Factor 5 Leiden deficiency History of DVT Moderate aortic stenosis per echo Pulmonary hypertension Hypertension, labile blood pressures CKD stage 3 MGUS (monoclonal gammopathy of unknown significance) GERD Osteoporosis Colonic polyps Generalized osteoarthritis ?1994 Primary hyperparathyroidism status post removal of one gland Fibromyalgia Benign breast biopsy D&C multiple times Basal cell cancer removed from right eye Cataract extraction Cholecystectomy Tonsillectomy/Adenoids Family History: Mother with leukemia. Father with a CVA. Sister with colon cancer. Social History: Nonsmoker. Rare alcohol. No illegal drug use. Retired. ([employer]) in 2013. Allergies Allergy/AdvReac Type Severity Reaction Status Date / Time nitrofurantoin Allergy Intermediate HIVES Verified 09/26/22 19:38 Penicillins Allergy Intermediate HIVES Verified 09/26/22 19:38 Home Medications Medication Instructions Recorded Confirmed Type amlodipine 5 mg tablet 5 mg PO BID 01/18/20 09/26/22 History aspirin 81 mg tablet,delayed 81 mg PO HS 01/18/20 09/26/22 History release (Annel Low Dose Aspirin) amiodarone 200 mg tablet 200 mg PO HS 05/11/20 09/26/22 History apixaban 2.5 mg tablet (Eliquis) 2.5 mg PO BID 09/26/22 09/26/22 History chlorthalidone 25 mg tablet 12.5 mg PO DAILY 09/26/22 09/26/22 History cholecalciferol (vitamin D3) 25 25 mcg PO HS 09/26/22 09/26/22 History mcg (1,000 unit) tablet (Vitamin D3) escitalopram oxalate 5 mg tablet 5 mg PO QAM 09/26/22 09/26/22 History (Lexapro) metoprolol tartrate 25 mg tablet 25 mg PO BID 09/26/22 09/26/22 History valsartan 160 mg tablet 160 mg PO AMHS 09/26/22 09/26/22 History Patient History Medical History Anemia Asthma CHILDHOOD ONLY Atrial fibrillation with controlled ventricular rate Basal cell carcinoma Bronchitis Cardiac murmur CKD (chronic kidney disease), stage III DVT (deep venous thrombosis) "MANY YEARS AGO" AFTER SURGERY Encounter for pre-operative examination Factor 5 Leiden mutation, heterozygous Fibromyalgia GERD (gastroesophageal reflux disease) HTN (hypertension) Hx of blood clots Osteoarthritis Paroxysmal a-fib Precordial chest pain Spinal stenosis Subtherapeutic international normalized ratio (INR) Supratherapeutic INR Thyroid nodule BIOPSY NEGATIVE Surgical History H/O dilation and curettage H/O parathyroidectomy History of adenoidectomy History of cholecystectomy History of colonoscopy History of tonsillectomy History of tooth extraction Family History Father Family history of diabetes mellitus Diabetes Stroke Sister Family hx of colon cancer Cancer Colorectal cancer Heart disease Mother Cancer Daughter Breast cancer Other Hypertension Social History Smoking Status: Never smoker Second Hand Exposure: No; Do You Dip or Chew Tobacco: No; Hx Alcohol Use: No Hx Substance Use: No Preferred Language: [place] Communication Ability: Effective Visual Impairment: No Limitations Care Clinician Required: No Beliefs That Will Affect Care: None marital status: / Current Living Situation: Alone current occupational status: retired Other Information That Helps Us Care for You: No Feels Safe at Home: Yes Safety Concerns: Feels Safe At This Time Assistive Devices: Cane Review of Systems Review of Systems: Complete Review of Systems is as stated above, negative, or noncontributory. Physical Exam Physical Exam: General: A&Ox3. NAD. HENT: Normocephalic. Atraumatic. Eyes: PER. Conjunctiva pink, sclera clear. Neck: Carotid bruits versus transmitted systolic murmur. No JVD. + HJR. Heart: RRR. Grade II-III/ systolic ejection murmur. No diastolic murmur. No rub. PMI is nondisplaced. Lungs: Bibasilar rales. Abdomen: +BS. Soft. Nontender. No masses or organomegaly. Extremities: Varicosities. No clubbing. No cyanosis. No significant edema. Limited neurological examination is without focal deficits. Pulses: radial=2/4, posterior tibial=3/4. Results & Data Vital Signs (Past 12 Hours) Vital Signs Temp Pulse Pulse Resp BP Pulse Ox O2 Del Method 09/27/22 08:00 65 09/27/22 07:37 37.5 C 60 18 134/63 95 Room Air 09/27/22 04:00 37.9 C H 69 20 168/73 H 94 Room Air Laboratory Results Cardiac Enzymes 09/26/22 09/26/22 09/27/22 Range/Units 17:25 21:42 00:12 AST 27 (13-39) U/L Troponin I High Sens 12.5 305.2 H* D (0-14) pg/ml B-Natriuretic Peptide 401 H (0-100) pg/ml 09/27/22 09/27/22 09/27/22 Range/Units 06:14 06:14 09:33 AST 29 (13-39) U/L Troponin I High Sens 487.3 H* D 587.9 H* D (0-14) pg/ml B-Natriuretic Peptide (0-100) pg/ml Coagulation 09/26/22 09/26/22 Range/Units 17:25 21:42 PT 11.7 (9.0-12.0) Seconds APTT 26.6 (21.0-31.0) Seconds B-Natriuretic Peptide 401 H (0-100) pg/ml CBC 09/26/22 09/27/22 Range/Units 17:25 06:14 WBC 6.20 6.58 (4.8-10.8) K/ul RBC 3.87 L 3.61 L (4.20-5.40) M/uL Hgb 11.7 L 11.0 L (12.0-16.0) g/dl Hct 35.5 L 33.4 L (37.0-47.0) % Plt Count 178 156 (130-400) K/uL Neut # (Auto) 5.06 5.46 (1.40-6.50) K/uL Lymph # (Auto) 0.48 L 0.42 L (1.2-3.4) K/uL [place] # (Auto) 0.48 0.59 (0.11-0.59) K/uL Eos # (Auto) 0.04 0.01 (0-0.50) K/uL Baso # (Auto) 0.05 0.03 (0-0.2) K/uL Comprehensive Metabolic Panel 09/26/22 09/27/22 Range/Units 17:25 06:14 Sodium 133 L 129 L (136-145) mmol/L Potassium 4.5 4.3 (3.5-5.1) mmol/L Chloride 100 96 L (98-107) mmol/L Carbon Dioxide 25 26 (21-32) mmol/L BUN 19 15 (6-23) mg/dl Creatinine 1.25 H 1.16 (0.6-1.2) mg/dl Glucose 96 112 H (70-99(Fasting)) mg/dl Calcium 9.3 9.0 (8.6-10.3) mg/dl Direct Bilirubin 0.2 (0-0.2) mg/dl AST 27 29 (13-39) U/L ALT 22 22 (7-52) U/L Alkaline Phosphatase 93 91 (34-104) U/L Total Protein 6.5 5.9 L (6.0-8.3) gm/dl Albumin 4.0 3.5 (3.4-5.0) gm/dl Intake and Output 09/26/22 09/27/22 09/27/22 22:59 06:59 14:59 Intake Total 400 / 590 190 / 590 Output Total 650 / 650 Balance -250 / -60 190 / -60 Intake: IV 100 / 170 70 / 170 Magnesium Sulfate / D5w 1 gm In 100 / 100 100 ml @ 50 mls/hr IV ONE ONE Rx#:[id number] cefTRIAXone SODIUM 2,000 mg In 70 / 70 Dextrose 5% 50 ml @ 100 mls/hr IV Q24H [facility] Rx#:[id number] Oral 300 / 420 120 / 420 Output: Urine 650 / 650 Other: Weight 88.9 kg 89.1 kg Weight Measurement Method Built in Bedscale Standing Scale Diagnostic Findings Telemetry: Sinus throughout with a first degree AV block
--- NOTE | 2022-09-27 13:40 | Electrocardiogram Report ---
Test Reason : Blood Pressure : / mmHG Vent. Rate : 071 BPM Atrial Rate : 071 BPM P-R Int : 210 ms QRS Dur : 088 ms QT Int : 370 ms P-R-T Axes : 000 003 058 degrees QTc Int : 402 ms Sinus rhythm with 1st degree A-V block Poor R wave progression, consider anterior UT vs. lead placement vs. LVH Abnormal ECG When compared with ECG of 31-JAN-2022 11:19, No significant change was found Confirmed by Gal Medrano ([id number]) on 09/27/2022 1:39:38 PM Referred By: REFERRED SELF Confirmed By:Gal Medrano
--- NOTE | 2022-09-27 13:45 | Electrocardiogram Report ---
Test Reason : Blood Pressure : / mmHG Vent. Rate : 067 BPM Atrial Rate : 067 BPM P-R Int : 222 ms QRS Dur : 094 ms QT Int : 392 ms P-R-T Axes : 080 006 055 degrees QTc Int : 414 ms Sinus rhythm with 1st degree A-V block Poor R wave progression, consider anterior NV vs. lead placement vs. LVH Abnormal ECG When compared with ECG of 26-SEP-2022 17:33, (unconfirmed) No significant change was found Confirmed by Gal Medrano ([id number]) on 09/27/2022 1:45:32 PM Referred By: REFERRED SELF Confirmed By:Gal Medrano
[2022-09-27] MEDS: NITROGLYCERIN 2% OINTMENT 30GM TUBE EXT SCH ×2 (14:46→20:49)
--- NOTE | 2022-09-27 15:29 | Hospitalist Progress Note ---
Date of Service September 27, 2022 Assessment & Plan (1) Fever: (2) Chest pain: (3) Chronic heart failure with preserved ejection fraction (HFpEF): (4) Paroxysmal a-fib: (5) HTN (hypertension): (6) CKD (chronic kidney disease), stage III: Plan This is an 82-year-old female who has significant past medical history of paroxysmal atrial fibrillation anticoagulated on Eliquis and rhythm controlled on amiodarone, HTN, aortic valve stenosis, aortic valve regurg, HTN, CKD stage III, GERD, osteoarthritis, senile osteoporosis, MGUS, history of DVT, factor V Leiden deficiency, history of colon polyps who presents ED secondary to fever and ill feeling x 2-3 days. Fever Admit to telemetry Empirically treat with IV ceftriaxone while work-up in progress Initial urinalysis negative-urine culture is negative Blood cultures obtained-pending Obtain [employer] respiratory panel, tick borne illness panel-bio fire and tick panel negative Treat fever with as needed Tylenol Symptoms include fever, chills, malaise, headache and nausea No known sick contacts She is clinically much better ,no more fever and or chills Will discontinue intravenous antibiotic after 3 days Acute decompensated diastolic CHF Received 1 dose of Lasix with adequate diuresis We will continue intravenous Lasix for now and hold hydrochlorothiazide Will need oral loop diuretic on discharge Chest pain HTN Moderate aortic stenosis Patient with reported chest pain today in the setting of reported blood pressure being in the 190s She does admit to not always being compliant with chlorthalidone due to urinary urgency and frequency She has been compliant with valsartan, amlodipine and metoprolol We will start her on Lasix 20 mg IV tomorrow morning and continue other current blood pressure medications Hold chlorthalidone while on IV Lasix Increased troponin-demand ischemia no ACS Cycle troponins for completeness, but doubt ACS Increase troponins due to demand ischemia and is complicated by febrile illness, hypertensive urgency and also HAYDE EKG without ischemic findings Obtain BNP, chest x-ray with pulmonary vascular congestion last echo 04/2022:LVEF 60 to 64%, high atrial pressure, moderate grade 2 diastolic dysfunction, moderate aortic stenosis Echo showed EF of 60 to 65%, mild concentric LVH, LV wall motion is normal, left atrium is moderately dilated, aortic valve is moderately calcified with moderate valvular aortic stenosis, mild MR, mild TR, estimated pulmonary pressure is 68 mmHg and dilated IVC with normal inspiratory variation suggesting a right atrial pressure of about 8 mmHg Appreciate cardiology input and recommendation Paroxysmal atrial fibrillation Continue metoprolol, amiodarone and Eliquis Follows [facility] Rate is controlled Hypomagnesemia Replete CKD stage III Creatinine 1.25, monitor renal function and avoid nephrotoxic agents Hx of DVT Factor V def continue eliquis Dvt ppx: eliqius Lines:Peripheral IV, no hernandez FULL CODE PCP: Dr. Guzman Dispo: admit to med tele, PT/OT consulted, plan to return home once medically stable Admission and Anticipated Discharge Date Admission Date: September 26, 2022 Subjective 09/17/2022 The patient was seen and examined in medical telemetry unit She has been feeling much better but was admitted with chest pressure/pain, shortness of breath, fever with chills with a chronic cough for some time Denies any significant symptoms this morning Review of Systems Review of Systems: All systems reviewed and are unremarkable except as noted below Physical Exam Physical Exam: Lying in bed comfortably Constitutional: well developed, well nourished, + ill appearing and average body habitus Eyes: PERRL, conjunctivae normal, anicteric sclerae ENMT: external ear and nose normal, oropharynx normal Neck: trachea midline, no thyromegaly Respiratory: no respiratory distress Auscultation: + diminished lung sounds and + crackles (Bibasilar crackles) Cardiovascular: Rate/Rhythm: regular rate and regular rhythm; not tachycardic Heart Sounds: normal S1, normal S2 and + murmur Extremities: + edema Gastrointestinal (Abdomen): Inspection/Auscultation: normal bowel sounds; abdomen not distended Percussion/Palpation: abdomen soft; abdomen nontender Musculoskeletal: No acute arthritis involving any of the joint Neurologic: normal touch/pain/proprioception and moves all extremities; no focal motor deficits Psychiatric: A+Ox3, euthymic affect Lymphatic: no cervical or axillary lymphadenopathy Results & Data Results & Data Vital Signs (Past 12 Hours) Vital Signs Temp Pulse Pulse Resp BP Pulse Ox O2 Del Method 09/27/22 14:46 66 161/73 H 09/27/22 11:13 36.8 C 56 L 18 153/70 H 94 Room Air 09/27/22 08:00 65 09/27/22 07:37 37.5 C 60 18 134/63 95 Room Air 09/27/22 04:00 37.9 C H 69 20 168/73 H 94 Room Air Laboratory Results Short CBC 09/26/22 09/27/22 Range/Units 17:25 06:14 WBC 6.20 6.58 (4.8-10.8) K/ul Hgb 11.7 L 11.0 L (12.0-16.0) g/dl Hct 35.5 L 33.4 L (37.0-47.0) % Plt Count 178 156 (130-400) K/uL BMP 09/26/22 09/27/22 17:25 06:14 Sodium 133 L 129 L Potassium 4.5 4.3 Chloride 100 96 L Carbon Dioxide 25 26 BUN 19 15 Creatinine 1.25 H 1.16 Glucose 96 112 H Calcium 9.3 9.0 Liver Function 09/26/22 09/27/22 Range/Units 17:25 06:14 Total Bilirubin 0.8 0.5 (0.2-1.0) mg/dl Direct Bilirubin 0.2 (0-0.2) mg/dl AST 27 29 (13-39) U/L ALT 22 22 (7-52) U/L Alkaline Phosphatase 93 91 (34-104) U/L Albumin 4.0 3.5 (3.4-5.0) gm/dl Urine 09/26/22 Range/Units 19:24 Urine Color Yellow Urine Appearance Clear (Clear) Urine pH 7.0 (4.5-7.5) Ur Specific [place] 1.012 (1.000-1.030) Urine Protein Trace H (Negative) Urine Glucose (UA) Negative (Negative) Medications Administered Current Inpatient Medications Acetaminophen (Acetaminophen 325 Mg Tab) 650 mg PO Q4H PRN PRN Reason: Pain or Fever Stop: 10/26/22 22:50 Last Admin: 09/27/22 15:18 Dose: 650 mg Al Hydrox/Mg Hydrox/Simethicone (Aluminum/Magnesium Susp 30 Ml Udc) 15 ml PO Q4H PRN PRN Reason: Dyspepsia Stop: 10/26/22 22:50 Amiodarone HCl (Amiodarone 200 Mg Tab) 200 mg PO HS [facility] Stop: 10/26/22 22:50 Last Admin: 09/26/22 23:53 Dose: 200 mg Amlodipine Besylate (Amlodipine Besylate 5 Mg Tab) 5 mg PO BID [facility] Stop: 10/26/22 22:50 Last Admin: 09/27/22 08:15 Dose: 5 mg Apixaban (Apixaban 2.5 Mg Tab) 2.5 mg PO BID [facility] Stop: 10/26/22 22:50 Last Admin: 09/27/22 08:15 Dose: 2.5 mg Aspirin (Aspirin 81 Mg Ectab) 81 mg PO HS [facility] Stop: 10/26/22 22:50 Last Admin: 09/26/22 23:53 Dose: 81 mg Escitalopram Oxalate (Escitalopram Oxalate 10 Mg Tab) 5 mg PO QAM [facility] Stop: 10/27/22 08:59 Last Admin: 09/27/22 08:15 Dose: 5 mg Furosemide (Furosemide Inj 20 Mg/2 Ml Vial) 20 mg IV DAILY [facility] Stop: 10/27/22 08:59 Last Admin: 09/27/22 08:15 Dose: 20 mg Ceftriaxone Sodium 2,000 mg/ (Dextrose) 70 mls @ 100 mls/hr IV Q24H [facility]; Protocol Stop: 10/01/22 22:50 Last Infusion: 09/27/22 00:35 Dose: Infused Magnesium Hydroxide (Magnesium Hydroxide Susp 30 Ml Udc) 30 ml PO Q12H PRN PRN Reason: Constipation Stop: 10/26/22 22:50 Metoprolol Tartrate (Metoprolol Tartrate 25 Mg Tab) 25 mg PO BID [facility] Stop: 10/26/22 22:50 Last Admin: 09/27/22 08:16 Dose: 25 mg Nitroglycerin (Nitroglycerin 2% Ointment 30gm Tube) 0.5 inch EXT Q6H [facility] Stop: 10/27/22 14:29 Last Admin: 09/27/22 14:46 Dose: 0.5 inch Ondansetron HCl (Ondansetron Inj 2 Mg/Ml 2 Ml Vial) 4 mg IV Q6H PRN PRN Reason: Nausea Stop: 10/26/22 22:50 Last Admin: 09/27/22 04:02 Dose: 4 mg Polyethylene Glycol (Polyethylene (Miralax) 17 Gm Pack) 17 gm PO DAILY PRN PRN Reason: Constipation Stop: 10/26/22 22:50 Valsartan (Valsartan 80 Mg Tab) 160 mg PO AMHS [facility] Stop: 10/26/22 22:50 Last Admin: 09/27/22 08:16 Dose: 160 mg Vitamin D (Cholecalciferol 1,000 Units 25 Mcg Tab) 1,000 units PO [facility] Stop: 10/26/22 22:50 Last Admin: 09/26/22 23:54 Dose: 1,000 units
[2022-09-27] MEDS: CHOLECALCIFEROL 1,000 UNITS 25 MCG TAB PO SCH (20:49)
[2022-09-27] MEDS: ASPIRIN 81 MG ECTAB PO SCH (20:49)
[2022-09-27] MEDS: AMIODARONE 200 MG TAB PO SCH (20:49)
[2022-09-28] MEDS: cefTRIAXone SODIUM 2,000 MG in DEXTROSE 5% 50 ML IV SCH ×2 (00:06→23:12)
[2022-09-28] MEDS: ACETAMINOPHEN 325 MG TAB PO PRN ×4 (02:24→23:52)
[2022-09-28] MEDS: NITROGLYCERIN 2% OINTMENT 30GM TUBE EXT SCH ×4 (03:42→20:10)
[2022-09-28] MEDS: LIDOCAINE 5% 1 PATCH TD SCH (03:43)
[2022-09-28 06:32] LABS: Basophils # (auto) 0.04 K/uL (0-0.2); Basophils % (auto) 0.9 %; Eosinophils # (auto) 0.01 K/uL (0-0.50); Eosinophils % (auto) 0.2 %; Hematocrit (blood only) 31.9 % (37.0-47.0); Hemoglobin 10.8 g/dl (12.0-16.0); Immature Granulocytes # (auto) 0.11 K/uL (0.01-0.20); Immature Granulocytes % (auto) 2.6 %; Lymphocytes # (auto) 0.36 K/uL (1.2-3.4); Lymphocytes % (auto) 8.4 %; Mean Corpuscular Hemoglobin 30.7 pg (25.0-34.0); Mean Corpuscular Hgb Conc 33.9 g/dL (32.0-36.0); Mean Corpuscular Volume 90.6 fL (80.0-100.0); Mean Platelet Volume 10.7 fL (9.4-12.4); Monocytes # (auto) 0.44 K/uL (0.11-0.59); Monocytes % (auto) 10.2 %; Neutrophils # (auto) 3.35 K/uL (1.40-6.50); Neutrophils % (auto) 77.7 %; Platelet Count 116 K/uL (130-400); RDW Coefficient of Variation 13.1 % (11.5-14.5); RDW Standard Deviation 43.4 fL (36.4-46.3); Red Blood Count 3.52 M/uL (4.20-5.40); White Blood Count 4.31 K/ul (4.8-10.8)
[2022-09-28 06:45] LABS: BUN Creatinine Ratio 12.7 (10-20); Calcium 8.3 mg/dl (8.6-10.3); Creatinine Clr Calc Pharmacy 37.6 ml/min; Est GFR (African American) 42.1 ml/min; Est GFR (Non-African American) 36.3 ml/min; Magnesium 1.6 mg/dl (1.7-2.4)
--- NOTE | 2022-09-28 07:21 | XRay Report ---
XR chest 1V portable CLINICAL HISTORY: CHF, fever. COMPARISON STUDY: Chest radiograph September 26, 2022. FINDINGS: Lung volumes are normal. Lungs are clear. There is no pneumothorax or pleural effusion. Mil d cardiomegaly is unchanged. Pulmonary vascular congestion is similar to prior exam. Mediastinal cont ours are normal. There is no evidence for pulmonary edema. IMPRESSION: Cardiomegaly with pulmonary vascular congestion, similar to prior study. ACT 112: Negative or not required by law. Electronically signed by: Saeid Peace M.D. 09/28/2022 7:20 AM
[2022-09-28] MEDS: VALSARTAN 80 MG TAB PO SCH ×2 (09:43→20:12)
[2022-09-28] MEDS: METOPROLOL TARTRATE 25 MG TAB PO SCH ×2 (09:43→20:12)
[2022-09-28] MEDS: ESCITALOPRAM OXALATE 10 MG TAB PO SCH (09:43)
[2022-09-28] MEDS: APIXABAN 2.5 MG TAB PO SCH ×2 (09:43→20:11)
[2022-09-28] MEDS: amLODIPine BESYLATE 5 MG TAB PO SCH ×2 (09:43→20:11)
--- NOTE | 2022-09-28 10:19 | Cardiology Progress Note ---
Date of Service September 28, 2022 Assessment & Plan (1) Fever: (2) Heart failure, diastolic, with acute decompensation: (3) Hypertensive urgency: (4) Elevated troponin: (5) Aortic stenosis: (6) Paroxysmal a-fib: (7) CKD (chronic kidney disease), stage III: Plan Fever and chills. Empirically being treated with IV ceftriaxone. Cultures pending. Refer for CT scan of the chest. As per Hospitalist Acute decompensated diastolic congestive heart failure. Echo now with severe pul monary hypertension, estimated systolic pulmonary pressure 68 mmHg via September 27, 2022 resting echocardiogram. Patient symptomatically improved following administration of low dose IV furosemide. Continue IV furosemide today and reassess ongoing need in AM. Recommend transitioning to loop diuretic therapy on discharge (was taking chlorthalidone intermittently at home) Elevated troponin. EKG without acute change. Echo without wall motion abnormality; normal LV function. Suspect demand ischemia in the setting of acute febrile illness, hypertensive urgency, acute decompensated heart failure, chron ic kidney disease. Continue medical management. Hypertensive urgency. Labile hypertension noted as an outpatient. Improved. BPs acceptable. Continue metoprolol, amlodipine, and valsartan. Paroxysmal atrial fibrillation. Continue metoprolol, amiodarone, and anticoagulation Moderate aortic stenosis. Outpatient follow-up. Admission and Anticipated Discharge Date Admission Date: September 26, 2022 Supervising Physician Co-Signing Physician Notes Patient seen and examined at the bedside. Ongoing fever, chills, rigors overnight. Preliminary blood culture results with no growth after 24 hours. PE: Febrile. GEN: NAD awake alert and oriented x3. Heart: Regular rhythm, 3/6 systolic ejection murmur heard best at the right second intercostal space. Lungs: Crackles at the bases bilaterally. No rales, rhonchi, or wheeze. Extremities: No edema. A/P: Agree with above PA-C history, physical exam, assessment and plan. 82-year-old female admitted with febrile illness, acute heart failure with preserved ejection fraction, chest discomfort with mildly elevated troponin. Troponin elevated secondary to demand ischemia in setting of uncontrolled hypertension, decompensated heart failure, and infectious process. Continue daily loop diuretic therapy with close attention to fluid balance, daily weight, GFR, and electrolytes. Add topical nitrates. Infectious evaluation unrevealing thus far. Mycoplasma and Legionella IgM pending. Viral serologies negative. Blood cultures with no growth at 24 hours. Nonocclusive, likely chronic DVT per duplex. CT of the chest with septal thickening and groundglass opacities reflecting alveolar pulmonary edema versus superimposed infectious process. Subjective Patient seen and examined. Chart, medications, and telemetry reviewed. Ongoing fevers and chills throughout the night. Shortness of breath mildly improved. No chest pain. No palpitations. Telemetry: Sinus/sinus bradycardia. Review of Systems Review of Systems: Complete Review of Systems is as stated above, negative, or noncontributory. Physical Exam Physical Exam: General: A&Ox3. NAD. Skin: Lidocaine patch to the left knee and right lower back HENT: Normocephalic. Atraumatic. Eyes: PER. Conjunctiva pink, sclera clear. Neck: Carotid bruits versus transmitted systolic murmur. No JVD. + HJR. Heart: RRR. Grade II-III/ systolic ejection murmur. No diastolic murmur. No rub. PMI is nondisplaced. Lungs: Clear. No wheeze. No Rales. Abdomen: +BS. Soft. Nontender. No masses or organomegaly. Extremities: Varicosities. No clubbing. No cyanosis. No significant edema. Limited neurological examination is without focal deficits. Pulses: radial=2/4, posterior tibial=3/4. Results & Data Vital Signs (Past 12 Hours) Vital Signs Temp Pulse Pulse Resp BP Pulse Ox O2 Del Method 09/28/22 08:13 36.9 C 61 17 120/56 L 91 Room Air 09/28/22 03:00 38.1 C H 66 132/57 L 94 Room Air 09/28/22 00:20 60 Laboratory Results CBC 09/28/22 Range/Units 05:58 WBC 4.31 L (4.8-10.8) K/ul RBC 3.52 L (4.20-5.40) M/uL Hgb 10.8 L (12.0-16.0) g/dl Hct 31.9 L (37.0-47.0) % Plt Count 116 L (130-400) K/uL Neut # (Auto) 3.35 (1.40-6.50) K/uL Lymph # (Auto) 0.36 L (1.2-3.4) K/uL Childress # (Auto) 0.44 (0.11-0.59) K/uL Eos # (Auto) 0.01 (0-0.50) K/uL Baso # (Auto) 0.04 (0-0.2) K/uL Comprehensive Metabolic Panel 09/28/22 Range/Units 05:58 Sodium 131 L (136-145) mmol/L Potassium 4.0 (3.5-5.1) mmol/L Chloride 96 L (98-107) mmol/L Carbon Dioxide 28 (21-32) mmol/L BUN 17 (6-23) mg/dl Creatinine 1.34 H (0.6-1.2) mg/dl Glucose 97 (70-99(Fasting)) mg/dl Calcium 8.3 L (8.6-10.3) mg/dl Intake and Output 09/27/22 09/28/22 09/28/22 22:59 06:59 14:59 Intake Total 150 / 440 170 / 440 Balance 150 / 440 170 / 440 Intake: IV 70 / 70 cefTRIAXone SODIUM 2,000 mg In 70 / 70 Dextrose 5% 50 ml @ 100 mls/hr IV Q24H [facility] Rx#:[id number] Oral 150 / 370 100 / 370 Other: Weight 91.2 kg
[2022-09-28] MEDS: FUROSEMIDE INJ 20 MG/2 ML VIAL IV SCH ×2 (10:51→11:39)
--- NOTE | 2022-09-28 11:02 | Ultrasound Report ---
BILATERAL LOWER EXTREMITY VENOUS DOPPLER HISTORY: Acute pain is a lower legs . History of superficial venous thrombosis of the right calf. sarika hernandez COMPARISON STUDY: 10/09/2021 FINDINGS: RIGHT: Nonocclusive thrombus is noted within the distal superficial femoral vein extending into the poplitea l vein. No acute occlusive DVT identified. 4.6 x 1.4 x 2.1 cm Bingham's cyst. LEFT: No DVT. IMPRESSION: 1. Nonocclusive likely chronic DVT of the right lower extremity, new from the 10/09/2021 comparison emy dy. 2. No left-sided DVT. ACT 112: Negative or not required by law. Electronically signed by: Juan Carlos Galvez M.D. 09/28/2022 11:00 AM
--- NOTE | 2022-09-28 11:54 | CT Scan Report ---
CT OF THE CHEST WITHOUT IV CONTRAST CLINICAL HISTORY: Fever. Abnormal chest radiograph. COMPARISON STUDY: Chest radiographs performed earlier today and September 26, 2022. Chest CT [address] DOSE: 315.37 mGy.cm TECHNIQUE: Axial images of the chest were obtained without IV contrast. Images were reviewed in the axial, sagittal, and coronal planes. IV contrast was not administered for this examination. Automat ed exposure control was utilized for the study. A dose lowering technique was utilized adhering to t he principles of ALARA. FINDINGS: No pathologically enlarged thoracic lymph nodes are present. Note is made of moderate card iomegaly. There is no pericardial effusion. Moderate coronary artery calcification is noted. There is a trace right pleural effusion. No pneumothorax. There are mild groundglass opacities within the trell gs with interlobular septal thickening. No consolidation is identified. There are no suspicious pulmo nary nodules. No acute fractures within the bony thorax are noted. There is mild splenomegaly. Small hiatal hernia is noted. IMPRESSION: 1. Interlobular septal thickening consistent with mild interstitial pulmonary edema. Groundglass opac ities within the lungs could reflect alveolar pulmonary edema or a mild superimposed infectious proce ss. No consolidation. 2. Trace right pleural effusion. 3. Moderate cardiomegaly and coronary artery calcification. 4. Mild splenomegaly. ACT 112: Negative or not required by law. Electronically signed by: Saeid Peace M.D. 09/28/2022 11:53 AM
--- NOTE | 2022-09-28 14:06 | Hospitalist Progress Note ---
Date of Service September 28, 2022 Assessment & Plan (1) Fever: (2) Chest pain: (3) Chronic heart failure with preserved ejection fraction (HFpEF): (4) Paroxysmal a-fib: (5) HTN (hypertension): (6) CKD (chronic kidney disease), stage III: Plan This is an 82-year-old female who has significant past medical history of paroxysmal atrial fibrillation anticoagulated on Eliquis and rhythm controlled on amiodarone, HTN, aortic valve stenosis, aortic valve regurg, HTN, CKD stage III, GERD, osteoarthritis, senile osteoporosis, MGUS, history of DVT, factor V Leiden deficiency, history of colon polyps who presents ED secondary to fever and ill feeling x 2-3 days. Fever Admit to telemetry Empirically treat with IV ceftriaxone while work-up in progress Initial urinalysis negative-urine culture is negative Blood cultures obtained-pending Obtain Bio[employer] respiratory panel, tick borne illness panel-bio fire and tick panel negative Treat fever with as needed Tylenol Symptoms include fever, chills, malaise, headache and nausea No known sick contacts She is clinically much better ,no more fever and or chills Will discontinue intravenous antibiotic after [address] scan of the chest did not show any pneumonia but it did show possible pneumonitis Will start intravenous doxycycline on top of ceftriaxone for now Patient remains afebrile since admission Acute decompensated diastolic CHF Received 1 dose of Lasix with adequate diuresis We will continue intravenous Lasix for now and hold hydrochlorothiazide Will need oral loop diuretic on discharge Diuretics were changed to oral Lasix 20 mg once a day from tomorrow Chest pain HTN Moderate aortic stenosis Patient with reported chest pain today in the setting of reported blood pressure being in the 190s She does admit to not always being compliant with chlorthalidone due to urinary urgency and frequency She has been compliant with valsartan, amlodipine and metoprolol We will start her on Lasix 20 mg IV tomorrow morning and continue other current blood pressure medications Hold chlorthalidone while on IV Lasix Discontinued chlorthalidone and will start with Lasix 20 mg daily Increased troponin-demand ischemia no ACS Cycle troponins for completeness, but doubt ACS Increase troponins due to demand ischemia and is complicated by febrile illness, hypertensive urgency and also HAYDE EKG without ischemic findings Obtain BNP, chest x-ray with pulmonary vascular congestion last echo 04/2022:LVEF 60 to 64%, high atrial pressure, moderate grade 2 diastolic dysfunction, moderate aortic stenosis Echo showed EF of 60 to 65%, mild concentric LVH, LV wall motion is normal, left atrium is moderately dilated, aortic valve is moderately calcified with moderate valvular aortic stenosis, mild MR, mild TR, estimated pulmonary pressure is 68 mmHg and dilated IVC with normal inspiratory variation suggesting a right atrial pressure of about 8 mmHg Appreciate cardiology input and recommendation Paroxysmal atrial fibrillation Continue metoprolol, amiodarone and Eliquis Follows [facility] cardiology Rate is controlled Hypomagnesemia Replete CKD stage III Creatinine 1.25, monitor renal function and avoid nephrotoxic agents Hx of DVT Factor V def continue eliquis Dvt ppx: eliqius Lines:Peripheral IV, no hernandez FULL CODE PCP: Dr. Guzman Dispo: [facility], PT/OT consulted, plan to return home once medically stable Awaiting PT evaluation prior to discharge and will likely to need 2 steps O2 saturation test prior to discharge Admission and Anticipated Discharge Date Admission Date: September 26, 2022 Subjective 09/27/2022 The patient was seen and examined in medical telemetry unit She has been feeling much better but was admitted with chest pressure/pain, shortness of breath, fever with chills with a chronic cough for some time Denies any significant symptoms this morning 09/28/2022 The patient was seen and examined in medical telemetry unit She is still not yet ready to be discharged and feels generally weak and shortness of breath with exertion Denies any more fever and or chills Denies any cardiac symptoms Review of Systems Review of Systems: All systems reviewed and are unremarkable except as noted below Physical Exam Physical Exam: Lying in bed comfortably Constitutional: well developed, well nourished, + ill appearing and average body habitus Eyes: PERRL, conjunctivae normal, anicteric sclerae ENMT: external ear and nose normal, oropharynx normal Neck: trachea midline, no thyromegaly Respiratory: no respiratory distress Auscultation: + diminished lung sounds and + crackles (Bibasilar crackles) Cardiovascular: Rate/Rhythm: regular rate and regular rhythm; not tachycardic Heart Sounds: normal S1, normal S2 and + murmur Extremities: + edema Gastrointestinal (Abdomen): Inspection/Auscultation: normal bowel sounds; abdomen not distended Percussion/Palpation: abdomen soft; abdomen nontender Neurologic: normal touch/pain/proprioception and moves all extremities; no focal motor deficits Psychiatric: A+Ox3, euthymic affect Lymphatic: no cervical or axillary lymphadenopathy Results & Data Results & Data Vital Signs (Past 12 Hours) Vital Signs Temp Pulse Resp BP Pulse Ox O2 Del Method 09/28/22 13:20 36.4 C 09/28/22 11:37 38.6 C H 65 17 144/67 H 90 Room Air 09/28/22 08:13 36.9 C 61 17 120/56 L 91 Room Air 09/28/22 03:00 38.1 C H 66 132/57 L 94 Room Air Laboratory Results Short CBC 09/28/22 Range/Units 05:58 WBC 4.31 L (4.8-10.8) K/ul Hgb 10.8 L (12.0-16.0) g/dl Hct 31.9 L (37.0-47.0) % Plt Count 116 L (130-400) K/uL BMP 09/28/22 05:58 Sodium 131 L Potassium 4.0 Chloride 96 L Carbon Dioxide 28 BUN 17 Creatinine 1.34 H Glucose 97 Calcium 8.3 L Medications Administered Current Inpatient Medications Acetaminophen (Acetaminophen 325 Mg Tab) 650 mg PO Q4H PRN PRN Reason: Pain or Fever Stop: 10/26/22 22:50 Last Admin: 09/28/22 11:38 Dose: 650 mg Al Hydrox/Mg Hydrox/Simethicone (Aluminum/Magnesium Susp 30 Ml Udc) 15 ml PO Q4H PRN PRN Reason: Dyspepsia Stop: 10/26/22 22:50 Amiodarone HCl (Amiodarone 200 Mg Tab) 200 mg PO HS GISSEL Stop: 10/26/22 22:50 Last Admin: 09/27/22 20:49 Dose: 200 mg Amlodipine Besylate (Amlodipine Besylate 5 Mg Tab) 5 mg PO BID GISSEL Stop: 10/26/22 22:50 Last Admin: 09/28/22 09:43 Dose: 5 mg Apixaban (Apixaban 2.5 Mg Tab) 2.5 mg PO BID GISSEL Stop: 10/26/22 22:50 Last Admin: 09/28/22 09:43 Dose: 2.5 mg Aspirin (Aspirin 81 Mg Ectab) 81 mg PO HS GISSEL Stop: 10/26/22 22:50 Last Admin: 09/27/22 20:49 Dose: 81 mg Escitalopram Oxalate (Escitalopram Oxalate 10 Mg Tab) [facility] Stop: 10/27/22 08:59 Last Admin: 09/28/22 09:43 Dose: 5 mg Furosemide (Furosemide 20 Mg Tab) 20 mg PO QAM [facility] Stop: 10/29/22 08:59 Ceftriaxone Sodium 2,000 mg/ (Dextrose) 70 mls @ 100 mls/hr IV Q24H [facility]; Protocol Stop: 10/01/22 22:50 Last Infusion: 09/28/22 00:56 Dose: Infused Doxycycline Hyclate 100 mg/ (Dextrose) 110 mls @ 50 mls/hr IV Q12H [facility] Stop: 10/05/22 13:44 Lidocaine (Lidocaine 5% 1 Patch) 1 patch TD [facility] [place] Stop: 10/28/22 02:29 Last Admin: 09/28/22 03:43 Dose: 1 patch Magnesium Hydroxide (Magnesium Hydroxide Susp 30 Ml Udc) 30 ml PO Q12H PRN PRN Reason: Constipation Stop: 10/26/22 22:50 Metoprolol Tartrate (Metoprolol Tartrate 25 Mg Tab) 25 mg PO BID [facility] Stop: 10/26/22 22:50 Last Admin: 09/28/22 09:43 Dose: 25 mg Miscellaneous (Remove Lidoderm Patch) 1 each N/A DAILY@2100 [facility] Stop: 10/28/22 14:59 Nitroglycerin (Nitroglycerin 2% Ointment 30gm Tube) 0.5 inch EXT Q6H [facility] Stop: 10/27/22 14:29 Last Admin: 09/28/22 10:45 Dose: Not Given Ondansetron HCl (Ondansetron Inj 2 Mg/Ml 2 Ml Vial) 4 mg IV Q6H PRN PRN Reason: Nausea Stop: 10/26/22 22:50 Last Admin: 09/27/22 04:02 Dose: 4 mg Polyethylene Glycol (Polyethylene (Miralax) 17 Gm Pack) 17 gm PO DAILY PRN PRN Reason: Constipation Stop: 10/26/22 22:50 Valsartan (Valsartan 80 Mg Tab) 160 mg PO AMHS [facility] Stop: 10/26/22 22:50 Last Admin: 09/28/22 09:43 Dose: 160 mg Vitamin D (Cholecalciferol 1,000 Units 25 Mcg Tab) 1,000 units PO HS GISSEL Stop: 10/26/22 22:50 Last Admin: 09/27/22 20:49 Dose: 1,000 units
[2022-09-28] MEDS: DOXYCYCLINE HYCLATE 100 MG in DEXTROSE 5% 100 ML IV SCH (14:31)
--- NOTE | 2022-09-28 15:08 | Electrocardiogram Report ---
Test Reason : Blood Pressure : / mmHG Vent. Rate : 063 BPM Atrial Rate : 063 BPM P-R Int : 246 ms QRS Dur : 090 ms QT Int : 432 ms P-R-T Axes : -21 025 -29 degrees QTc Int : 442 ms Sinus rhythm with 1st degree A-V block T wave abnormality, consider inferior ischemia Abnormal ECG When compared with ECG of 26-SEP-2022 20:20, T wave inversion now evident in Inferior leads Confirmed by Gal Medrano [id number]) on 09/28/2022 3:08:11 PM Referred By: REFERRED SELF Confirmed By:Gal Medrano
[2022-09-28] MEDS: AMIODARONE 200 MG TAB PO SCH (20:11)
[2022-09-28] MEDS: ASPIRIN 81 MG ECTAB PO SCH (20:11)
[2022-09-28] MEDS: CHOLECALCIFEROL 1,000 UNITS 25 MCG TAB PO SCH (20:11)
[2022-09-29] MEDS: DOXYCYCLINE HYCLATE 100 MG in DEXTROSE 5% 100 ML IV SCH ×2 (02:21→13:52)
[2022-09-29] MEDS: NITROGLYCERIN 2% OINTMENT 30GM TUBE EXT SCH ×4 (02:23→20:34)
[2022-09-29 07:46] LABS: BUN Creatinine Ratio 13.1 (10-20); Calcium 8.9 mg/dl (8.6-10.3); Creatinine Clr Calc Pharmacy 30.8 ml/min; Est GFR (African American) 33.9 ml/min; Est GFR (Non-African American) 29.3 ml/min; Potassium 3.6 mmol/L (3.5-5.1)
[2022-09-29] MEDS: amLODIPine BESYLATE 5 MG TAB PO SCH (09:20)
[2022-09-29] MEDS: LIDOCAINE 5% 1 PATCH TD SCH (09:21)
[2022-09-29] MEDS: VALSARTAN 80 MG TAB PO SCH ×2 (09:21→20:36)
[2022-09-29] MEDS: ESCITALOPRAM OXALATE 10 MG TAB PO SCH (09:21)
[2022-09-29] MEDS: METOPROLOL TARTRATE 25 MG TAB PO SCH ×2 (09:21→20:36)
[2022-09-29] MEDS: FUROSEMIDE 20 MG TAB PO SCH (09:21)
[2022-09-29] MEDS: APIXABAN 2.5 MG TAB PO SCH ×2 (09:21→20:35)
--- NOTE | 2022-09-29 15:32 | Cardiology Progress Note ---
Date of Service September 29, 2022 Assessment & Plan (1) Fever: (2) Heart failure, diastolic, with acute decompensation: (3) Hypertensive urgency: (4) Elevated troponin: (5) Aortic stenosis: (6) Paroxysmal a-fib: (7) CKD (chronic kidney disease), stage III: Plan Fever and chills. Empirically being treated with IV ceftriaxone. Cultures pending. Refer for CT scan of the chest. As per Hospitalist Acute decompensated diastolic congestive heart failure. Echo now with severe pul monary hypertension, estimated systolic pulmonary pressure 68 mmHg via September 27, 2022 resting echocardiogram. Patient symptomatically improved following administration of low dose IV furosemide. Continue IV furosemide today and reassess ongoing need in AM. Recommend transitioning to loop diuretic therapy on discharge (was taking chlorthalidone intermittently at home) Elevated troponin. EKG without acute change. Echo without wall motion abnormality; normal LV function. Suspect demand ischemia in the setting of acute febrile illness, hypertensive urgency, acute decompensated heart failure, chron ic kidney disease. Continue medical management. Hypertensive urgency. Labile hypertension noted as an outpatient. Improved. BPs acceptable. Continue metoprolol, amlodipine, and valsartan. Paroxysmal atrial fibrillation. Continue metoprolol, amiodarone, and anticoagulation Moderate aortic stenosis. Outpatient follow-up. 09/29/2022. Slowly improving by on patient description. Blood pressure is coming under better control. Source of fever and acute febrile illness not discern possibly viral etiology. Plan as previously begun continue low-dose diuretic with furosemide 20 mg/day antihypertensives as ordered Hyponatremia and hypoxia improving. Admission and Anticipated Discharge Date Admission Date: September 26, 2022 Subjective Patient was seen and examined, chart, medications, telemetry reviewed Patient sitting out of bed in chair feels somewhat stronger today noted blood pressure did fall when out of bed but no associated profound dizziness. No shortness of breath. Mild cough Review of Systems Review of Systems: All systems reviewed & are unremarkable except as noted in Subjective Physical Exam Constitutional: WD/WN, vitals as above no acute distress Eyes: PERRL, conjunctivae normal, anicteric sclerae ENMT: external ear and nose normal, oropharynx normal Neck: trachea midline, no thyromegaly Respiratory: Auscultation: + crackles (Few basilar crackles on the left) Cardiovascular: Rate/Rhythm: regular rate and regular rhythm Vessels: no JVD Extremities: no edema Gastrointestinal (Abdomen): normal bowel sounds, soft, nontender, no hepatosplenomegaly Musculoskeletal: no cyanosis or clubbing, extremities motor strength 5/5 Results & Data Vital Signs (Past 12 Hours) Vital Signs Temp Pulse Pulse Resp BP BP Pulse Ox 09/29/22 14:01 58 L 89/51 L 09/29/22 13:34 60 88/52 L 09/29/22 11:26 57 L 98/50 L 09/29/22 11:15 37.1 C 58 L 17 87/46 L 95/56 L 94 09/29/22 09:00 09/29/22 07:59 37.0 C 52 L 17 104/55 L 92 09/29/22 05:55 49 L 09/29/22 04:00 36.8 C 57 L 18 118/72 96 O2 Del Method O2 Flow Rate 09/29/22 14:01 09/29/22 13:34 09/29/22 11:26 09/29/22 11:15 Room Air 09/29/22 09:00 3.5 09/29/22 07:59 Room Air 09/29/22 05:55 09/29/22 04:00 Room Air Laboratory Results Laboratory Results - last 24 hr 09/29/22 06:44 Sodium 132 L Potassium 3.6 Chloride 95 L Carbon Dioxide 28 Anion Gap 9 BUN 21 Creatinine 1.60 H Est Cr Clr Drug Dosing 30.8 Est GFR ( Amer) 33.9 Est GFR (Non-Af Amer) 29.3 BUN/Creatinine Ratio 13.1 Glucose 97 Calcium 8.9
[2022-09-29] MEDS: ACETAMINOPHEN 325 MG TAB PO PRN (20:34)
[2022-09-29] MEDS: AMIODARONE 200 MG TAB PO SCH (20:35)
[2022-09-29] MEDS: CHOLECALCIFEROL 1,000 UNITS 25 MCG TAB PO SCH (20:35)
[2022-09-29] MEDS: ASPIRIN 81 MG ECTAB PO SCH (20:35)
[2022-09-29] MEDS: cefTRIAXone SODIUM 2,000 MG in DEXTROSE 5% 50 ML IV SCH (22:54)
[2022-09-30] MEDS: DOXYCYCLINE HYCLATE 100 MG in DEXTROSE 5% 100 ML IV SCH (01:23)
[2022-09-30] MEDS: NITROGLYCERIN 2% OINTMENT 30GM TUBE EXT SCH ×2 (02:05→08:32)
[2022-09-30] MEDS: APIXABAN 2.5 MG TAB PO SCH ×2 (08:32→20:32)
[2022-09-30] MEDS: LIDOCAINE 5% 1 PATCH TD SCH (08:32)
[2022-09-30] MEDS: ESCITALOPRAM OXALATE 10 MG TAB PO SCH (08:33)
[2022-09-30] MEDS: VALSARTAN 80 MG TAB PO SCH (08:33)
[2022-09-30] MEDS: FUROSEMIDE 20 MG TAB PO SCH (08:33)
[2022-09-30] MEDS: METOPROLOL TARTRATE 25 MG TAB PO SCH (08:33)
[2022-09-30 09:06] LABS: BUN Creatinine Ratio 16.7 (10-20); Calcium 8.2 mg/dl (8.6-10.3); Creatinine Clr Calc Pharmacy 28.5 ml/min; Est GFR (African American) 30.7 ml/min; Est GFR (Non-African American) 26.5 ml/min; Potassium 3.6 mmol/L (3.5-5.1)
--- NOTE | 2022-09-30 10:14 | Cardiology Progress Note ---
Date of Service September 30, 2022 Assessment & Plan (1) Fever: (2) Heart failure, diastolic, with acute decompensation: (3) Hypertensive urgency: (4) Elevated troponin: (5) Aortic stenosis: (6) Paroxysmal a-fib: (7) CKD (chronic kidney disease), stage III: Plan Fever and chills. Empirically being treated with IV ceftriaxone. Cultures pending. Refer for CT scan of the chest. As per Hospitalist Acute decompensated diastolic congestive heart failure. Echo now with severe pul monary hypertension, estimated systolic pulmonary pressure 68 mmHg via September 27, 2022 resting echocardiogram. Patient symptomatically improved following administration of low dose IV furosemide. Continue IV furosemide today and reassess ongoing need in AM. Recommend transitioning to loop diuretic therapy on discharge (was taking chlorthalidone intermittently at home) Elevated troponin. EKG without acute change. Echo without wall motion abnormality; normal LV function. Suspect demand ischemia in the setting of acute febrile illness, hypertensive urgency, acute decompensated heart failure, chron ic kidney disease. Continue medical management. Hypertensive urgency. Labile hypertension noted as an outpatient. Improved. BPs acceptable. Continue metoprolol, amlodipine, and valsartan. Paroxysmal atrial fibrillation. Continue metoprolol, amiodarone, and anticoagulation Moderate aortic stenosis. Outpatient follow-up. 09/29/2022. Slowly improving by on patient description. Blood pressure is coming under better control. Source of fever and acute febrile illness not discern possibly viral etiology. Plan as previously begun continue low-dose diuretic with furosemide 20 mg/day antihypertensives as ordered Hyponatremia and hypoxia improving. 09/30/2022 Patient is slowly improving. As noted blood pressure and heart rate are trending lower nursing staff holding metoprolol, amlodipine, topical nitrates Renal function with increasing creatinine today Recommendations: Discontinue metoprolol tartrate. Begin metoprolol succinate 25 mg every afternoon. Hold further furosemide with presentation consistent with likely viral/infection illness rather than acute volume overload Agree with reduction in Diovan Discontinue topical nitrates and continue to hold amlodipine Admission and Anticipated Discharge Date Admission Date: September 26, 2022 Subjective Patient seen and examined, chart, medications, telemetry reviewed. Heart rate and blood pressure trending towards low but otherwise doing well. Feeling improved ambulatory in room respiratory status improved no fevers chills or cough. Physical Exam Constitutional: WD/WN, vitals as above no acute distress Eyes: PERRL, conjunctivae normal, anicteric sclerae ENMT: external ear and nose normal, oropharynx normal Neck: trachea midline, no thyromegaly Respiratory: Auscultation: + crackles (Few basilar crackles on the left) Cardiovascular: Rate/Rhythm: regular rate and regular rhythm Vessels: no JVD Extremities: no edema Gastrointestinal (Abdomen): normal bowel sounds, soft, nontender, no hepatosplenomegaly Musculoskeletal: no cyanosis or clubbing, extremities motor strength 5/5 Results & Data Vital Signs (Past 12 Hours) Vital Signs Temp Pulse Pulse Resp BP BP Pulse Ox 09/30/22 08:13 36.6 C 51 L 17 118/69 94 09/30/22 07:15 55 L 09/30/22 03:10 36.8 C 55 L 18 123/70 93 09/29/22 23:43 36.7 C 54 L 18 101/55 L 94 09/29/22 23:04 55 L O2 Del Method 09/30/22 08:13 Room Air 09/30/22 07:15 09/30/22 03:10 Room Air 09/29/22 23:43 Room Air 09/29/22 23:04 Laboratory Results Laboratory Results - last 24 hr 09/30/22 08:36 Sodium 129 L Potassium 3.6 Chloride 95 L Carbon Dioxide 25 Anion Gap 9 BUN 29 H Creatinine 1.74 H Est Cr Clr Drug Dosing 28.5 Est GFR ( Amer) 30.7 Est GFR (Non-Af Amer) 26.5 BUN/Creatinine Ratio 16.7 Glucose 147 H Calcium 8.2 L
--- NOTE | 2022-09-30 12:53 | Hospitalist Progress Note ---
Date of Service September 29, 2022 Assessment & Plan (1) Fever: (2) Chest pain: (3) Chronic heart failure with preserved ejection fraction (HFpEF): (4) Paroxysmal a-fib: (5) HTN (hypertension): (6) CKD (chronic kidney disease), stage III: Plan This is an 82-year-old female who has significant past medical history of paroxysmal atrial fibrillation anticoagulated on Eliquis and rhythm controlled on amiodarone, HTN, aortic valve stenosis, aortic valve regurg, HTN, CKD stage III, GERD, osteoarthritis, senile osteoporosis, MGUS, history of DVT, factor V Leiden deficiency, history of colon polyps who presents ED secondary to fever and ill feeling x 2-3 days. Fever Admit to telemetry Empirically treat with IV ceftriaxone while work-up in progress Initial urinalysis negative-urine culture is negative Blood cultures obtained-pending Obtain BioFire respiratory panel, tick borne illness panel-bio fire and tick panel negative Treat fever with as needed Tylenol Symptoms include fever, chills, malaise, headache and nausea No known sick contacts She is clinically much better ,no more fever and or chills Will discontinue intravenous antibiotic after [address] scan of the chest did not show any pneumonia but it did show possible pneumonitis Will start intravenous doxycycline on top of ceftriaxone for now Patient remains afebrile since admission Generally weak and lethargic without any other significant symptoms Acute decompensated diastolic CHF Received 1 dose of Lasix with adequate diuresis We will continue intravenous Lasix for now and hold hydrochlorothiazide Will need oral loop diuretic on discharge Diuretics were changed to oral Lasix 20 mg once a day from tomorrow Chest pain HTN Moderate aortic stenosis Patient with reported chest pain today in the setting of reported blood pressure being in the 190s She does admit to not always being compliant with chlorthalidone due to urinary urgency and frequency She has been compliant with valsartan, amlodipine and metoprolol We will start her on Lasix 20 mg IV tomorrow morning and continue other current blood pressure medications Hold chlorthalidone while on IV Lasix Discontinued chlorthalidone and will start with Lasix 20 mg daily Increased troponin-demand ischemia no ACS Cycle troponins for completeness, but doubt ACS Increase troponins due to demand ischemia and is complicated by febrile illness, hypertensive urgency and also HAYDE EKG without ischemic findings Obtain BNP, chest x-ray with pulmonary vascular congestion last echo 04/2022:LVEF 60 to 64%, high atrial pressure, moderate grade 2 diastolic dysfunction, moderate aortic stenosis Echo showed EF of 60 to 65%, mild concentric LVH, LV wall motion is normal, left atrium is moderately dilated, aortic valve is moderately calcified with moderate valvular aortic stenosis, mild MR, mild TR, estimated pulmonary pressure is 68 mmHg and dilated IVC with normal inspiratory variation suggesting a right atrial pressure of about 8 mmHg Appreciate cardiology input and recommendation No more cardiac symptoms Paroxysmal atrial fibrillation Continue metoprolol, amiodarone and Eliquis Follows [facility] cardiology Rate is controlled Hypomagnesemia Replete CKD stage III Creatinine 1.25, monitor renal function and avoid nephrotoxic agents Hx of DVT Factor V def continue eliquis Dvt ppx: eliqius Lines:Peripheral IV, no hernandez FULL CODE PCP: Dr. Guzman Dispo: admit to med [facility], PT/OT consulted, plan to return home once medically stable Awaiting PT evaluation prior to discharge and will likely to need 2 steps O2 saturation test prior to discharge Not yet ready to be discharged Admission and Anticipated Discharge Date Admission Date: September 26, 2022 Subjective 09/27/2022 The patient was seen and examined in medical telemetry unit She has been feeling much better but was admitted with chest pressure/pain, shortness of breath, fever with chills with a chronic cough for some time Denies any significant symptoms this morning 09/28/2022 The patient was seen and examined in medical telemetry unit She is still not yet ready to be discharged and feels generally weak and shortness of breath with exertion Denies any more fever and or chills Denies any cardiac symptoms 09/29/2022 The patient was seen and examined in medical telemetry unit Remains weak and lethargic today Blood pressure noted to be low Review of Systems Review of Systems: All systems reviewed and are unremarkable except as noted below Physical Exam Physical Exam: Lying in bed comfortably Constitutional: well developed, well nourished, + ill appearing and average body habitus Eyes: PERRL, conjunctivae normal, anicteric sclerae ENMT: external ear and nose normal, oropharynx normal Neck: trachea midline, no thyromegaly Respiratory: no respiratory distress Auscultation: + diminished lung sounds and + crackles (Bibasilar crackles) Cardiovascular: Rate/Rhythm: regular rate and regular rhythm; not tachycardic Heart Sounds: normal S1, normal S2 and + murmur Extremities: + edema Gastrointestinal (Abdomen): Inspection/Auscultation: normal bowel sounds; abdomen not distended Percussion/Palpation: abdomen soft; abdomen nontender Neurologic: normal touch/pain/proprioception and moves all extremities; no focal motor deficits Psychiatric: A+Ox3, euthymic affect Lymphatic: no cervical or axillary lymphadenopathy Results & Data Results & Data Vital Signs (Past 12 Hours) Vital Signs Temp Pulse Pulse Resp BP Pulse Ox O2 Del Method 09/30/22 11:55 36.6 C 52 L 17 105/63 95 Room Air 09/30/22 08:13 36.6 C 51 L 17 118/69 94 Room Air 09/30/22 07:15 55 L 09/30/22 03:10 36.8 C 55 L 18 123/70 93 Room Air
--- NOTE | 2022-09-30 12:57 | Hospitalist Progress Note ---
Date of Service September 30, 2022 Assessment & Plan (1) Fever: (2) Chest pain: (3) Chronic heart failure with preserved ejection fraction (HFpEF): (4) Paroxysmal a-fib: (5) HTN (hypertension): (6) CKD (chronic kidney disease), stage III: Plan This is an 82-year-old female who has significant past medical history of paroxysmal atrial fibrillation anticoagulated on Eliquis and rhythm controlled on amiodarone, HTN, aortic valve stenosis, aortic valve regurg, HTN, CKD stage III, GERD, osteoarthritis, senile osteoporosis, MGUS, history of DVT, factor V Leiden deficiency, history of colon polyps who presents ED secondary to fever and ill feeling x 2-3 days. Fever Admit to telemetry Empirically treat with IV ceftriaxone while work-up in progress Initial urinalysis negative-urine culture is negative Blood cultures obtained-pending Obtain BioFire respiratory panel, tick borne illness panel-bio fire and tick panel negative Treat fever with as needed Tylenol Symptoms include fever, chills, malaise, headache and nausea No known sick contacts She is clinically much better ,no more fever and or chills Will discontinue intravenous antibiotic after [address] scan of the chest did not show any pneumonia but it did show possible pneumonitis Will start intravenous doxycycline on top of ceftriaxone for now Patient remains afebrile since admission Generally weak and lethargic without any other significant symptoms No more fever and or chills We will discontinue ceftriaxone and continue with oral doxycycline to finish a course for 7 days in total Acute decompensated diastolic CHF Received 1 dose of Lasix with adequate diuresis We will continue intravenous Lasix for now and hold hydrochlorothiazide Will need oral loop diuretic on discharge Diuretics were changed to oral Lasix 20 mg once a day from tomorrow Creatinine has been going up and Lasix has been discontinued by the student development dean Chest pain HTN Moderate aortic stenosis Patient with reported chest pain today in the setting of reported blood pressure being in the 190s She does admit to not always being compliant with chlorthalidone due to urinary urgency and frequency She has been compliant with valsartan, amlodipine and metoprolol We will start her on Lasix 20 mg IV tomorrow morning and continue other current blood pressure medications Hold chlorthalidone while on IV Lasix Discontinued chlorthalidone and will start with Lasix 20 mg daily Lasix has been discontinued Amlodipine is on hold and decrease the dose of valsartan and metoprolol has been changed to succinate Increased troponin-demand ischemia no ACS Cycle troponins for completeness, but doubt ACS Increase troponins due to demand ischemia and is complicated by febrile illness, hypertensive urgency and also HAYDE EKG without ischemic findings Obtain BNP, chest x-ray with pulmonary vascular congestion last echo 04/2022:LVEF 60 to 64%, high atrial pressure, moderate grade 2 diastolic dysfunction, moderate aortic stenosis Echo showed EF of 60 to 65%, mild concentric LVH, LV wall motion is normal, left atrium is moderately dilated, aortic valve is moderately calcified with moderate valvular aortic stenosis, mild MR, mild TR, estimated pulmonary pressure is 68 mmHg and dilated IVC with normal inspiratory variation suggesting a right atrial pressure of about 8 mmHg Appreciate cardiology input and recommendation No more cardiac symptoms Paroxysmal atrial fibrillation Continue metoprolol, amiodarone and Eliquis Follows [facility] cardiology Rate is [id number] has been changed to long-acting 1 Hypomagnesemia Replete CKD stage III Creatinine 1.25, monitor renal function and avoid nephrotoxic agents Hx of DVT Factor V def continue eliquis Dvt ppx: eliqius Lines:Peripheral IV, no hernandez FULL CODE PCP: Dr. Guzman Dispo: admit to med [facility], PT/OT consulted, plan to return home once medically stable Awaiting PT evaluation prior to discharge and will likely to need 2 steps O2 saturation test prior to discharge Not yet ready to be discharged Admission and Anticipated Discharge Date Admission Date: September 26, 2022 Subjective 09/27/2022 The patient was seen and examined in medical telemetry unit She has been feeling much better but was admitted with chest pressure/pain, shortness of breath, fever with chills with a chronic cough for some time Denies any significant symptoms this morning 09/28/2022 The patient was seen and examined in medical telemetry unit She is still not yet ready to be discharged and feels generally weak and shortness of breath with exertion Denies any more fever and or chills Denies any cardiac symptoms 09/29/2022 The patient was seen and examined in medical telemetry unit Remains weak and lethargic today Blood pressure noted to be low 09/30/2022 The patient was seen and examined in medical telemetry unit She has been much better today and does not have any significant symptoms Her cough is improved and denies any shortness of breath Her blood pressure remains on the lower side Review of Systems Review of Systems: All systems reviewed and are unremarkable except as noted below Physical Exam Physical Exam: Lying in bed comfortably Constitutional: well developed, well nourished, + ill appearing and average body habitus Eyes: PERRL, conjunctivae normal, anicteric sclerae ENMT: external ear and nose normal, oropharynx normal Neck: trachea midline, no thyromegaly Respiratory: no respiratory distress Auscultation: + diminished lung sounds and + crackles (Bibasilar crackles) Cardiovascular: Rate/Rhythm: regular rate and regular rhythm; not tachycardic Heart Sounds: normal S1, normal S2 and + murmur Extremities: no edema Gastrointestinal (Abdomen): Inspection/Auscultation: normal bowel sounds; abdomen not distended Percussion/Palpation: abdomen soft; abdomen nontender Musculoskeletal: No acute arthritis involving any joint Neurologic: normal touch/pain/proprioception and moves all extremities; no focal motor deficits Psychiatric: A+Ox3, euthymic affect Lymphatic: no cervical or axillary lymphadenopathy Results & Data Results & Data Vital Signs (Past 12 Hours) Vital Signs Temp Pulse Pulse Resp BP Pulse Ox O2 Del Method 09/30/22 11:55 36.6 C 52 L 17 105/63 95 Room Air 09/30/22 08:13 36.6 C 51 L 17 118/69 94 Room Air 09/30/22 07:15 55 L 09/30/22 03:10 36.8 C 55 L 18 123/70 93 Room Air Laboratory Results [facility] 09/30/22 08:36 Sodium 129 L Potassium 3.6 Chloride 95 L Carbon Dioxide 25 BUN 29 H Creatinine 1.74 H Glucose 147 H Calcium 8.2 L Medications Administered Current Inpatient Medications Acetaminophen (Acetaminophen 325 Mg Tab) 650 mg PO Q4H PRN PRN Reason: Pain or Fever Stop: 10/26/22 22:50 Last Admin: 09/29/22 20:34 Dose: 650 mg Al Hydrox/Mg Hydrox/Simethicone (Aluminum/Magnesium Susp 30 Ml Udc) 15 ml PO Q4H PRN PRN Reason: Dyspepsia Stop: 10/26/22 22:50 Amiodarone HCl (Amiodarone 200 Mg Tab) 200 mg PO HS GISSEL Stop: 10/26/22 22:50 Last Admin: 09/29/22 20:35 Dose: 200 mg Amlodipine Besylate (Amlodipine Besylate 5 Mg Tab) 5 mg PO BID [facility] Stop: 10/26/22 22:50 Last Admin: 09/29/22 09:20 Dose: 5 mg Apixaban (Apixaban 2.5 Mg Tab) 2.5 mg PO BID [facility] Stop: 10/26/22 22:50 Last Admin: 09/30/22 08:32 Dose: 2.5 mg Aspirin (Aspirin 81 Mg Ectab) 81 mg PO HS GISSEL Stop: 10/26/22 22:50 Last Admin: 09/29/22 20:35 Dose: 81 mg Escitalopram Oxalate (Escitalopram Oxalate 10 Mg Tab) 5 mg PO QAM [facility] Stop: 10/27/22 08:59 Last Admin: 09/30/22 08:33 Dose: 5 mg Furosemide (Furosemide 20 Mg Tab) 20 mg PO QAM [facility] Stop: 10/29/22 08:59 Last Admin: 09/30/22 08:33 Dose: 20 mg Ceftriaxone Sodium 2,000 mg/ (Dextrose) 70 mls @ 100 mls/hr IV Q24H [facility]; Protocol Stop: 10/01/22 22:50 Last Infusion: 09/29/22 23:37 Dose: Infused Doxycycline Hyclate 100 mg/ (Dextrose) 110 mls @ 50 mls/hr IV Q12H [facility] Stop: 10/05/22 13:44 Last Infusion: 09/30/22 03:40 Dose: Infused Lidocaine (Lidocaine 5% 1 Patch) 1 patch TD QAM [facility] Stop: 10/28/22 02:29 Last Admin: 09/30/22 08:32 Dose: 1 patch Magnesium Hydroxide (Magnesium Hydroxide Susp 30 Ml Udc) 30 ml PO Q12H PRN PRN Reason: Constipation Stop: 10/26/22 22:50 Metoprolol Succinate (Metoprolol Succ 25mg Ext Rel Tab) 25 mg PO QPM [facility] Stop: 10/30/22 20:59 Miscellaneous (Remove Lidoderm Patch) 1 each N/A DAILY@2100 [facility] Stop: 10/28/22 14:59 Last Admin: 09/29/22 20:36 Dose: 1 each Ondansetron HCl (Ondansetron Inj 2 Mg/Ml 2 Ml Vial) 4 mg IV Q6H PRN PRN Reason: Nausea Stop: 10/26/22 22:50 Last Admin: 09/27/22 04:02 Dose: 4 mg Polyethylene Glycol (Polyethylene (Miralax) 17 Gm Pack) 17 gm PO DAILY PRN PRN Reason: Constipation Stop: 10/26/22 22:50 Valsartan (Valsartan 80 Mg Tab) 160 mg PO DAILY GISSEL Stop: 10/31/22 08:59 Vitamin D (Cholecalciferol 1,000 Units 25 Mcg Tab) 1,000 units PO [facility] Stop: 10/26/22 22:50 Last Admin: 09/29/22 20:35 Dose: 1,000 units
[2022-09-30] MEDS: ACETAMINOPHEN 325 MG TAB PO PRN ×2 (13:08→19:30)
[2022-09-30] MEDS: AMIODARONE 200 MG TAB PO SCH (20:32)
[2022-09-30] MEDS: ASPIRIN 81 MG ECTAB PO SCH (20:33)
[2022-09-30] MEDS: DOXYCYCLINE HYCLATE 100 MG CAP PO SCH (20:33)
[2022-09-30] MEDS: CHOLECALCIFEROL 1,000 UNITS 25 MCG TAB PO SCH (20:33)
[2022-09-30] MEDS ORDERED: METOPROLOL SUCC 25MG EXT REL TAB PO SCH (21:00)
[2022-10-01 02:03] LABS: Babesia microti DNA Not Detected (Not Detected)
[2022-10-01] MEDS: ACETAMINOPHEN 325 MG TAB PO PRN (03:29)
[2022-10-01 07:48] LABS: Basophils # (auto) 0.06 K/uL (0-0.2); Basophils % (auto) 1.3 %; Eosinophils % (auto) 2.1 %; Hematocrit (blood only) 37.9 % (37.0-47.0); Hemoglobin 12.4 g/dl (12.0-16.0); Immature Granulocytes # (auto) 0.08 K/uL (0.01-0.20); Immature Granulocytes % (auto) 1.7 %; Lymphocytes # (auto) 1.57 K/uL (1.2-3.4); Lymphocytes % (auto) 33.2 %; Mean Corpuscular Hgb Conc 32.7 g/dL (32.0-36.0); Mean Corpuscular Volume 91.5 fL (80.0-100.0); Mean Platelet Volume 11.3 fL (9.4-12.4); Monocytes # (auto) 0.74 K/uL (0.11-0.59); Monocytes % (auto) 15.6 %; Neutrophils # (auto) 2.18 K/uL (1.40-6.50); Neutrophils % (auto) 46.1 %; Platelet Count 167 K/uL (130-400); RDW Coefficient of Variation 13.3 % (11.5-14.5); RDW Standard Deviation 44.6 fL (36.4-46.3); Red Blood Count 4.14 M/uL (4.20-5.40); White Blood Count 4.73 K/ul (4.8-10.8)
[2022-10-01 08:05] LABS: BUN Creatinine Ratio 19.3 (10-20); Calcium 8.7 mg/dl (8.6-10.3); Creatinine Clr Calc Pharmacy 29.1 ml/min; Est GFR (African American) 31.3 ml/min; Potassium 4.1 mmol/L (3.5-5.1)
[2022-10-01] MEDS ORDERED: VALSARTAN 80 MG TAB PO SCH (09:00)
[2022-10-01] MEDS: LIDOCAINE 5% 1 PATCH TD SCH (09:16)
[2022-10-01] MEDS: APIXABAN 2.5 MG TAB PO SCH (09:17)
[2022-10-01] MEDS: ESCITALOPRAM OXALATE 10 MG TAB PO SCH (09:17)
[2022-10-01] MEDS: DOXYCYCLINE HYCLATE 100 MG CAP PO SCH (09:17)
--- NOTE | 2022-10-01 09:22 | Cardiology Progress Note ---
Date of Service October 01, 2022 Assessment & Plan (1) Fever: (2) Heart failure, diastolic, with acute decompensation: (3) Hypertensive urgency: (4) Elevated troponin: (5) Aortic stenosis: (6) Paroxysmal a-fib: (7) CKD (chronic kidney disease), stage III: Plan IMPRESSION: Fever and chills. Empirically being treated with IV ceftriaxone and Doxycycline. Blood cultures negative. Urine culture positive. Treatment as per Hospitalist Acute decompensated diastolic congestive heart failure. Echo now with severe pulmonary hypertension, estimated systolic pulmonary pressure 68 mmHg via September 27, 2022 resting echocardiogram. Patient symptomatically improved following administration of low dose IV furosemide. Blood pressures lowered and serum creatinine increased. Diuretics currently on hold. Elevated troponin. EKG without acute change. Echo without wall motion abnormality; normal LV function. Suspect demand ischemia in the setting of acute febrile illness, hypertensive urgency, acute decompensated heart failure, chronic kidney disease. Continue medical management. Hypertensive urgency. Labile hypertension noted as an outpatient. Improved. BPs acceptable. Paroxysmal atrial fibrillation. Continue metoprolol, amiodarone, and anticoagulation Moderate aortic stenosis. Outpatient follow-up. PLAN: Continue metoprolol succinate 25 mg every afternoon. Hold further furosemide with presentation consistent with likely viral/infection illness rather than acute volume overload. Hyponatremia improving. Agree with reduction in Diovan- continues to be held. Will reduce further, 80 mg daily starting tomorrow. Continue to hold amlodipine. Case discussed with Dr. Paula- will follow. Admission and Anticipated Discharge Date Admission Date: September 26, 2022 Supervising Physician Co-Signing Physician Notes Patient seen and examined, chart, telemetry reviewed as well. No arrhythmias on telemetry. Oxygen demands have improved substantially. Blood pressures trending towards low with multiple drugs on hold. Plan as outlined above Chest x-ray and CT scan on admission reviewed as well with increased interstitial markings. We will reduce amiodarone to 100 mg/day Subjective 82-year-old female who initially presented to [facility] emergency department with fever, chills, chest discomfort, and cough. Treated with IV furosemide with improvement in symptoms but increasing creatinine. Diuretics have since been held. Patient treated empirically for infection and received IV ceftriaxone. Blood cultures preliminarily showed no growth, urine culture positive for Diptheroids. Currently on Doxy for possible pneumonitis seen on CT of the chest Patient was hypertensive upon admission and has a history of labile blood pressures in the past. Blood pressures improved through admission and currently amlodipine and furosemide are being held. Diovan was reduced. Patient transition from metoprolol to tartrate to metoprolol succinate. 10/01: Upon entrance into the room patient resting in the chair. No acute concerns. Feeling much improved. No chest pain, shortness of breath, palpitations, or lightheadedness. Blood pressures well controlled with multiple home medications on hold. Euvolemic on exam. Review of Systems Review of Systems: All systems reviewed & are unremarkable except as noted in HPI & below Physical Exam Physical Exam: General: A&Ox3. NAD. Skin: Lidocaine patch to the left knee and right lower back HENT: Normocephalic. Atraumatic. Eyes: PER. Conjunctiva pink, sclera clear. Neck: Carotid bruits versus transmitted systolic murmur. No JVD. + HJR. Heart: RRR. Grade II-III/ systolic ejection murmur. No diastolic murmur. No rub. PMI is nondisplaced. Lungs: Clear. No wheeze. No Rales. Abdomen: +BS. Soft. Nontender. No masses or organomegaly. Extremities: Varicosities. No clubbing. No cyanosis. No significant edema. Limited neurological examination is without focal deficits. Pulses: radial=2/4, posterior tibial=3/4. Results & Data Vital Signs (Past 12 Hours) Vital Signs Temp Pulse Pulse Resp BP Pulse Ox O2 Del Method 10/01/22 07:37 36.7 C 54 L 18 99/61 L 97 Room Air 10/01/22 04:00 36.7 C 54 L 18 120/71 95 Room Air 10/01/22 00:59 63 09/30/22 23:19 36.7 C 55 L 18 106/63 94 Room Air Laboratory Results CBC 10/01/22 Range/Units 07:33 WBC 4.73 L (4.8-10.8) K/ul RBC 4.14 L (4.20-5.40) M/uL Hgb 12.4 (12.0-16.0) g/dl Hct 37.9 (37.0-47.0) % Plt Count 167 (130-400) K/uL Neut # (Auto) 2.18 (1.40-6.50) K/uL Lymph # (Auto) 1.57 (1.2-3.4) K/uL [place] # (Auto) 0.74 H (0.11-0.59) K/uL Eos # (Auto) 0.10 (0-0.50) K/uL Baso # (Auto) 0.06 (0-0.2) K/uL Comprehensive Metabolic Panel 10/01/22 Range/Units 07:33 Sodium 132 L (136-145) mmol/L Potassium 4.1 (3.5-5.1) mmol/L Chloride 98 (98-107) mmol/L Carbon Dioxide 29 (21-32) mmol/L BUN 33 H (6-23) mg/dl Creatinine 1.71 H (0.6-1.2) mg/dl Glucose 100 H (70-99(Fasting)) mg/dl Calcium 8.7 (8.6-10.3) mg/dl Intake and Output 09/30/22 10/01/22 10/01/22 22:59 06:59 14:59 Intake Total 240 / 810 120 / 810 Balance 240 / 810 120 / 810 Intake: Oral 240 / 810 120 / 810 Other: Weight 89 kg Weight Measurement Method Built in [facility]
--- NOTE | 2022-10-01 12:05 | Hospitalist Progress Note ---
Date of Service October 01, 2022 Assessment & Plan (1) Fever: (2) Chest pain: (3) Chronic heart failure with preserved ejection fraction (HFpEF): (4) Paroxysmal a-fib: (5) HTN (hypertension): (6) CKD (chronic kidney disease), stage III: Plan This is an 82-year-old female who has significant past medical history of paroxysmal atrial fibrillation anticoagulated on Eliquis and rhythm controlled on amiodarone, HTN, aortic valve stenosis, aortic valve regurg, HTN, CKD stage III, GERD, osteoarthritis, senile osteoporosis, MGUS, history of DVT, factor V Leiden deficiency, history of colon polyps who presents ED secondary to fever and ill feeling x 2-3 days. Fever Admit to telemetry Empirically treat with IV ceftriaxone while work-up in progress Initial urinalysis negative-urine culture is negative Blood cultures obtained-pending Obtain BioFire respiratory panel, tick borne illness panel-bio fire and tick panel negative Treat fever with as needed Tylenol Symptoms include fever, chills, malaise, headache and nausea No known sick contacts She is clinically much better ,no more fever and or chills Will discontinue intravenous antibiotic after [address] scan of the chest did not show any pneumonia but it did show possible pneumonitis Will start intravenous doxycycline on top of ceftriaxone for now Patient remains afebrile since admission Generally weak and lethargic without any other significant symptoms No more fever and or chills We will discontinue ceftriaxone and continue with oral doxycycline to finish a course for 7 days in total Acute decompensated diastolic CHF Received 1 dose of Lasix with adequate diuresis We will continue intravenous Lasix for now and hold hydrochlorothiazide Will need oral loop diuretic on discharge Diuretics were changed to oral Lasix 20 mg once a day from tomorrow Creatinine has been going up and Lasix has been discontinued by the loftsman Creatinine remains stable but high at 1.7 on and will hold off Lasix for now on discharge Chest pain HTN Moderate aortic stenosis Patient with reported chest pain today in the setting of reported blood pressure being in the 190s She does admit to not always being compliant with chlorthalidone due to urinary urgency and frequency She has been compliant with valsartan, amlodipine and metoprolol We will start her on Lasix 20 mg IV tomorrow morning and continue other current blood pressure medications Hold chlorthalidone while on IV Lasix Discontinued chlorthalidone and will start with Lasix 20 mg daily Lasix has been discontinued Amlodipine is on hold and decrease the dose of valsartan and metoprolol has been changed to succinate Amlodipine will be discontinued and valsartan will be decreased to 80 mg once a day on discharge Increased troponin-demand ischemia no ACS Cycle troponins for completeness, but doubt ACS Increase troponins due to demand ischemia and is complicated by febrile illness, hypertensive urgency and also HAYDE EKG without ischemic findings Obtain BNP, chest x-ray with pulmonary vascular congestion last echo 04/2022:LVEF 60 to 64%, high atrial pressure, moderate grade 2 diastolic dysfunction, moderate aortic stenosis Echo showed EF of 60 to 65%, mild concentric LVH, LV wall motion is normal, left atrium is moderately dilated, aortic valve is moderately calcified with moderate valvular aortic stenosis, mild MR, mild TR, estimated pulmonary pressure is 68 mmHg and dilated IVC with normal inspiratory variation suggesting a right atrial pressure of about 8 mmHg Appreciate cardiology input and recommendation No more cardiac symptoms Paroxysmal atrial fibrillation Continue metoprolol, amiodarone and Eliquis Follows [facility] cardiology Rate is [id number] has been changed to long-acting one Hypomagnesemia Replete CKD stage III Creatinine 1.25, monitor renal function and avoid nephrotoxic agents Hx of DVT Factor V def continue eliquis Dvt ppx: eliqius Lines:Peripheral IV, no hernandez FULL CODE PCP: Dr. Guzman Dispo: admit to [facility], PT/OT consulted, plan to return home once medically stable No more shortness of breath and has been saturating normally on room air all along Will be discharged home this afternoon Admission and Anticipated Discharge Date Admission Date: September 26, 2022 Subjective 09/27/2022 The patient was seen and examined in medical telemetry unit She has been feeling much better but was admitted with chest pressure/pain, shortness of breath, fever with chills with a chronic cough for some time Denies any significant symptoms this morning 09/28/2022 The patient was seen and examined in medical telemetry unit She is still not yet ready to be discharged and feels generally weak and shortness of breath with exertion Denies any more fever and or chills Denies any cardiac symptoms 09/29/2022 The patient was seen and examined in medical telemetry unit Remains weak and lethargic today Blood pressure noted to be low 09/30/2022 The patient was seen and examined in medical telemetry unit She has been much better today and does not have any significant symptoms Her cough is improved and denies any shortness of breath Her blood pressure remains on the lower side 10/01/2022 The patient was seen and examined in medical telemetry unit She has been feeling much better and has had physical therapy Denies any more significant symptoms Blood pressure seems on the lower side but no more hypotension She will be discharged home this afternoon Review of Systems Review of Systems: All systems reviewed and are unremarkable except as noted below Physical Exam Physical Exam: Lying in bed comfortably Constitutional: well developed, well nourished, + ill appearing and average body habitus Eyes: PERRL, conjunctivae normal, anicteric sclerae ENMT: external ear and nose normal, oropharynx normal Neck: trachea midline, no thyromegaly Respiratory: no respiratory distress Auscultation: + diminished lung sounds and + crackles (Bibasilar crackles) Cardiovascular: Rate/Rhythm: regular rate and regular rhythm; not tachycardic Heart Sounds: normal S1, normal S2 and + murmur Extremities: no edema Gastrointestinal (Abdomen): Inspection/Auscultation: normal bowel sounds; abdomen not distended Percussion/Palpation: abdomen soft; abdomen nontender Musculoskeletal: No acute arthritis involving any of the joint Neurologic: normal touch/pain/proprioception and moves all extremities; no focal motor deficits Psychiatric: A+Ox3, euthymic affect Lymphatic: no cervical or axillary lymphadenopathy Results & Data Results & Data Vital Signs (Past 12 Hours) Vital Signs Temp Pulse Pulse Resp BP Pulse Ox O2 Del Method 10/01/22 08:00 55 L 10/01/22 11:25 36.7 C 56 L 18 102/65 94 Room Air 10/01/22 07:37 36.7 C 54 L 18 99/61 L 97 Room Air 10/01/22 04:00 36.7 C 54 L 18 120/71 95 Room Air 10/01/22 00:59 63 Laboratory Results Short CBC 10/01/22 Range/Units 07:33 WBC 4.73 L (4.8-10.8) K/ul Hgb 12.4 (12.0-16.0) g/dl Hct 37.9 (37.0-47.0) % Plt Count 167 (130-400) K/uL BMP 10/01/22 07:33 Sodium 132 L Potassium 4.1 Chloride 98 Carbon Dioxide 29 BUN 33 H Creatinine 1.71 H Glucose 100 H Calcium 8.7 Medications Administered Current Inpatient Medications Acetaminophen (Acetaminophen 325 Mg Tab) 650 mg PO Q4H PRN PRN Reason: Pain or Fever Stop: 10/26/22 22:50 Last Admin: 10/01/22 03:29 Dose: 650 mg Al Hydrox/Mg Hydrox/Simethicone (Aluminum/Magnesium Susp 30 Ml Udc) 15 ml PO Q4H PRN PRN Reason: Dyspepsia Stop: 10/26/22 22:50 Amiodarone HCl (Amiodarone 200 Mg Tab) 200 mg PO HS [facility] Stop: 10/26/22 22:50 Last Admin: 09/30/22 20:32 Dose: 200 mg Amlodipine Besylate (Amlodipine Besylate 5 Mg Tab) 5 mg PO BID [facility] Stop: 10/26/22 22:50 Last Admin: 09/29/22 09:20 Dose: 5 mg Apixaban (Apixaban 2.5 Mg Tab) 2.5 mg PO BID [facility] Stop: 10/26/22 22:50 Last Admin: 10/01/22 09:17 Dose: 2.5 mg Aspirin (Aspirin 81 Mg Ectab) 81 mg PO HS [facility] Stop: 10/26/22 22:50 Last Admin: 09/30/22 20:33 Dose: 81 mg Doxycycline Hyclate (Doxycycline Hyclate 100 Mg Cap) 100 mg PO BID [facility] Stop: 10/07/22 20:59 Last Admin: 10/01/22 09:17 Dose: 100 mg Escitalopram Oxalate (Escitalopram Oxalate 10 Mg Tab) [facility] Stop: 10/27/22 08:59 Last Admin: 10/01/22 09:17 Dose: 5 mg Furosemide (Furosemide 20 Mg Tab) 20 mg PO QAM [facility] Stop: 10/29/22 08:59 Last Admin: 09/30/22 08:33 Dose: 20 mg Lidocaine (Lidocaine 5% 1 Patch) 1 patch TD QAM [facility] Stop: 10/28/22 02:29 Last Admin: 10/01/22 09:16 Dose: Not Given Magnesium Hydroxide (Magnesium Hydroxide Susp 30 Ml Udc) 30 ml PO Q12H PRN PRN Reason: Constipation Stop: 10/26/22 22:50 Metoprolol Succinate (Metoprolol Succ 25mg Ext Rel Tab) 25 mg PO QPM [facility] Stop: 10/30/22 20:59 Last Admin: 09/30/22 20:33 Dose: 25 mg Miscellaneous (Remove Lidoderm Patch) 1 each N/A DAILY@2100 [facility] Stop: 10/28/22 14:59 Last Admin: 09/30/22 20:36 Dose: 1 each Ondansetron HCl (Ondansetron Inj 2 Mg/Ml 2 Ml Vial) 4 mg IV Q6H PRN PRN Reason: Nausea Stop: 10/26/22 22:50 Last Admin: 09/27/22 04:02 Dose: 4 mg Polyethylene Glycol (Polyethylene (Miralax) 17 Gm Pack) 17 gm PO DAILY PRN PRN Reason: Constipation Stop: 10/26/22 22:50 Valsartan (Valsartan 80 Mg Tab) 80 mg PO DAILY [facility] Stop: 11/01/22 08:59 Vitamin D (Cholecalciferol 1,000 Units 25 Mcg Tab) 1,000 units PO HS [facility] Stop: 10/26/22 22:50 Last Admin: 09/30/22 20:33 Dose: 1,000 units
--- NOTE | 2022-10-01 16:36 | Discharge Summary ---
Date of Service October 01, 2022 Admission HPI Per Admitting Provider This is an 82-year-old female who has significant past medical history of paroxysmal atrial fibrillation anticoagulated on Eliquis and rhythm controlled on amiodarone, HTN, aortic valve stenosis, aortic valve regurg, HTN, CKD stage III, GERD, osteoarthritis, senile osteoporosis, MGUS, history of DVT, factor V Leiden deficiency, history of colon polyps who presents ED secondary to fever and ill feeling x 2-3 days. Patient's [id number] is at bedside. She lives alone and typically ambulates with a cane. She is very active at baseline with cleaning her house and doing her gardening despite summer temperatures. She states over the last 2 to 3 days she has had increased fatigue, malaise and unable to do the work that she typically does. Today she reported fever and chills with a Tmax of 100. She denies any sick contacts. Her appetite has remained unchanged. She also checked her blood pressure today and her systolic blood pressure was in the 190s. This was also associated with substernal chest pressure and shortness of breath. According to [id number] at bedside she had significant trouble walking from the house to the car prior to coming to hospital which is significantly unusual for her. She denies any increase in weight or lower extremity swelling. She admits to not always being compliant with chlorthalidone due to urinary urgency and frequency. She does report increased urinary urgency and frequency the last 2 to 3 days but denies any dysuria. For the last month she has had a cough that does get worse when lying flat at night. She denies any lightheadedness, dizziness, change in vision, neck pain or stiffness, shortness breath at rest, hemoptysis, vomiting, abdominal pain, diarrhea. She has been significantly nauseated and also complains of a headache. She denies any known tick bites or rashes. In ED patient was hemodynamically stable although she did have elevated temp at 37.8. Her blood work was significant for anemia with an H&H of 11.7 and 35.5, WBC was normal, mild lymphopenia, sodium 133, creatinine 1.25, mag of 1.6. Her troponin and procalcitonin was normal. Her urinalysis was negative as well. Chest x-ray did reveal pulmonary vascular congestion. Admission Exam Per Admitting Provider Physical Exam: Constitutional: Elderly, F, sitting up in bed WD/WN, vitals as above, NAD,, pleasant, conversing easily Head: Normocephalic, Atraumatic Eyes: PERRL, conjunctivae normal, anicteric sclerae ENMT: external ear and nose normal, oropharynx normal Neck: trachea midline, no thyromegaly normal visual inspection Respiratory: 93% on RA, normal respiratory effort, lungs clear to auscultation, no wheeze, rales, rhonchi. Normal insp/exp effort, no accessory muscle use Cardiovascular: RRR, 2/6 MARCELLA noted RUSB, no edema but b/l varicosities, Vessels: no JVD or carotid bruit Chest: normal inspection of chest Abdomen: normal bowel sounds, soft, nontender, no hepatosplenomegaly Musculoskeletal: no cyanosis or clubbing, AROM x 4 Skin: no rashes, + ecchymosis b/l pretibial area and dorsal aspect of forearms b/l, warm and dry normal turgor Neurologic: PERRL, EOMI, accommodation nl, no face palsy, no dysarthria CN's II-XI intact bilaterally and moves all extremities Psychiatric: A+Ox3, euthymic affect Lymphatic: no cervical or axillary lymphadenopathy : deferred Principal Diagnosis Fever likely secondary to acute bronchitis/viral illness, diastolic CHF, hypertension, moderate aortic stenosis, paroxysmal atrial fibrillation Discharge Exam Lying in bed comfortably Constitutional well developed, well nourished, + ill appearing and average body habitus Eyes PERRL, conjunctivae normal, anicteric sclerae ENMT external ear and nose normal, oropharynx normal Neck trachea midline, no thyromegaly Respiratory no respiratory distress Auscultation: + diminished lung sounds and + crackles (Bibasilar crackles) Cardiovascular Rate/Rhythm: regular rate and regular rhythm; not tachycardic Heart Sounds: normal S1, normal S2 and + murmur Extremities: no edema Gastrointestinal (Abdomen) Inspection/Auscultation: normal bowel sounds; abdomen not distended Percussion/Palpation: abdomen soft; abdomen nontender Neurologic normal touch/pain/proprioception and moves all extremities; no focal motor deficits Psychiatric A+Ox3, euthymic affect Lymphatic no cervical or axillary lymphadenopathy Discharge Data Allergies Allergy/AdvReac Type Severity Reaction Status Date / Time nitrofurantoin Allergy Intermediate HIVES Verified 09/26/22 19:38 Penicillins Allergy Intermediate HIVES Verified 09/26/22 19:38 Consultations 09/26/22 20:23 ED Decision to Admit Stat 09/27/22 08:00 Consult Cardiology Routine Ordered Studies 09/28/22 07:57 US venous duplex leg [US venous doppler LE BI] Routine 09/28/22 08:09 CT chest diagnostic wo con Routine Hospital Course (1) Fever: (2) Chest pain: (3) Chronic heart failure with preserved ejection fraction (HFpEF): (4) Paroxysmal a-fib: (5) HTN (hypertension): (6) CKD (chronic kidney disease), stage III: Plan This is an 82-year-old female who has significant past medical history of paroxysmal atrial fibrillation anticoagulated on Eliquis and rhythm controlled on amiodarone, HTN, aortic valve stenosis, aortic valve regurg, HTN, CKD stage III, GERD, osteoarthritis, senile osteoporosis, MGUS, history of DVT, factor V Leiden deficiency, history of colon polyps who presents ED secondary to fever and ill feeling x 2-3 days. Fever Admit to telemetry Empirically treat with IV ceftriaxone while work-up in progress Initial urinalysis negative-urine culture is negative Blood cultures obtained-pending Obtain Bio[employer] respiratory panel, tick borne illness panel-bio fire and tick panel negative Treat fever with as needed Tylenol Symptoms include fever, chills, malaise, headache and nausea No known sick contacts She is clinically much better ,no more fever and or chills Will discontinue intravenous antibiotic after [address] scan of the chest did not show any pneumonia but it did show possible pneumonitis Will start intravenous doxycycline on top of ceftriaxone for now Patient remains afebrile since admission Generally weak and lethargic without any other significant symptoms No more fever and or chills We will discontinue ceftriaxone and continue with oral doxycycline to finish a course for 7 days in total Acute decompensated diastolic CHF Received 1 dose of Lasix with adequate diuresis We will continue intravenous Lasix for now and hold hydrochlorothiazide Will need oral loop diuretic on discharge Diuretics were changed to oral Lasix 20 mg once a day from tomorrow Creatinine has been going up and Lasix has been discontinued by the director airport Creatinine remains stable but high at 1.7 on and will hold off Lasix for now on discharge Chest pain HTN Moderate aortic stenosis Patient with reported chest pain today in the setting of reported blood pressure being in the 190s She does admit to not always being compliant with chlorthalidone due to urinary urgency and frequency She has been compliant with valsartan, amlodipine and metoprolol We will start her on Lasix 20 mg IV tomorrow morning and continue other current blood pressure medications Hold chlorthalidone while on IV Lasix Discontinued chlorthalidone and will start with Lasix 20 mg daily Lasix has been discontinued Amlodipine is on hold and decrease the dose of valsartan and metoprolol has been changed to succinate Amlodipine will be discontinued and valsartan will be decreased to 80 mg once a day on discharge Increased troponin-demand ischemia no ACS Cycle troponins for completeness, but doubt ACS Increase troponins due to demand ischemia and is complicated by febrile illness, hypertensive urgency and also HAYDE EKG without ischemic findings Obtain BNP, chest x-ray with pulmonary vascular congestion last echo 04/2022:LVEF 60 to 64%, high atrial pressure, moderate grade 2 diastolic dysfunction, moderate aortic stenosis Echo showed EF of 60 to 65%, mild concentric LVH, LV wall motion is normal, left atrium is moderately dilated, aortic valve is moderately calcified with moderate valvular aortic stenosis, mild MR, mild TR, estimated pulmonary pressure is 68 mmHg and dilated IVC with normal inspiratory variation suggesting a right atrial pressure of about 8 mmHg Appreciate cardiology input and recommendation No more cardiac symptoms Paroxysmal atrial fibrillation Continue metoprolol, amiodarone and Eliquis Follows [facility] cardiology Rate is lwpuflfpon-ueay-ddwomux has been changed to long-acting one Hypomagnesemia Replete CKD stage III Creatinine 1.25, monitor renal function and avoid nephrotoxic agents Hx of DVT Factor V def continue eliquis Dvt ppx: eliqius Lines:Peripheral IV, no hernandez FULL CODE PCP: Dr. Guzman Dispo: admit to med tele, PT/OT consulted, plan to return home once medically stable No more shortness of breath and has been saturating normally on room air all along Will be discharged home this afternoon Total Time Total Time Spent Total Time Spent (In Minutes): 35 minutes Discharge Plan Discharge Items Patient Disposition: Home - Home Health Services Reason For Visit: FEVER Discharge Diagnosis: Fever likely secondary to acute bronchitis/viral illness, diastolic CHF, hypertension, moderate aortic stenosis, paroxysmal atrial fibrillation Condition on Discharge: Good Activity: Resume your previous activity Non-emergency contact: Primary Care Provider Call non-emergency contact if: you have any medication questions and your sympt oms worsen Follow-up/Referrals: Sadie Guzman MD [Primary Care Provider] - (Please make an appointment with your primary care physician within 7 days) Diet: Heart Healthy and Low Sodium (2gm) Addtl Attending Provider Instructions: Please take precautions to avoid fall Take your medications as advised Your Lasix will be on hold until you are seen by your primary care physician/director airport Your blood pressure medications have been adjusted-please take the medications as directed Pending Studies at Discharge: No Stand-Alone Forms: My [facility] [employer], Smoking Cessation Medications and DC Order Prescriptions: New doxycycline hyclate 100 mg Capsule 100 mg PO BID 3 Days Qty: 6 0RF valsartan [Diovan] 80 mg Tablet 80 mg PO DAILY 30 Days Qty: 30 0RF lidocaine 5 % Adhesive Patch,Medicated 1 patch transdermal QAM 30 Days Qty: 30 0RF metoprolol succinate 25 mg Tablet Extended Release 24 Hr 25 mg PO QPM 30 Days Qty: 30 0RF amiodarone 100 mg tablet 100 mg PO HS Qty: 30 0RF Continued aspirin [Annel Low Dose Aspirin] 81 mg Tablet,Delayed Release (Dr/Ec) 81 mg PO HS escitalopram oxalate [Lexapro] 5 mg Tablet 5 mg PO QAM Eliquis 2.5 mg Tablet 2.5 mg PO BID cholecalciferol (vitamin D3) [Vitamin D3] 25 mcg (1,000 unit) Tablet 25 mcg PO HS Discontinued amlodipine 5 mg tablet 5 mg PO BID amiodarone 200 mg Tablet 200 mg PO HS valsartan 160 mg Tablet 160 mg PO AMHS metoprolol tartrate 25 mg Tablet 25 mg PO BID chlorthalidone 25 mg Tablet 12.5 mg PO DAILY Discharge Orders: Discharge Order (Routine); Ordered 10/01/22 Ordered By: Leah Martin Admission Data Admit Date/Time: 09/26/22 20:29 Attending Provider: Leah Martin Admit Provider: Michael Rodriguez Primary Care Provider: Sadie Guzman Other Providers: Michael Rodriguez ; Katie Bronson ; Geovanny Wilkinson ; Blue Paula ; Brent Bowling ; Jonny Valdez ; Odell Arguelles ; Kiana Roblero ; Anisa Fernández ; Katie Mckinney ; Berry Steve ; Paul Bethea Other Interventions: Discharge Summary Assessment (RN) Last Done: 10/01/22 13:06
[2022-10-01] MEDS ORDERED: AMIODARONE 200 MG TAB PO SCH (21:00)
[2022-10-02] MEDS ORDERED: VALSARTAN 80 MG TAB PO SCH (09:00)
== END 2022-10-01 15:00 | disposition home health service (06) | DRG 291 ==
LOC: ED 16:45 → SUATTDRO 20:29 → 2N 20:29